=== PATIENT | male | born 1945 | race Caucasian/White ===

== ENCOUNTER 2016-12-29 13:30 | Observation (INO) | payer OTHER ==
[2016-12-29] VITALS (7 sets, daily range): BP systolic 103–129; BP diastolic 69–77; PULSE 72–109; RESP 16–20; TEMP 98–98.2; O2SAT 95–97
[~2016-12-29] VITALS: Ht 175.3 cm; Wt 84.3 kg
[2016-12-29] MEDS ORDERED: SODIUM CHLORIDE 0.9% FLUSH 5 ML FLUSH IVF PRN ×2 (14:00→15:45)
[2016-12-29] MEDS ORDERED: methylPREDNISolone SOD SUCC 125 MG/2 ML VIAL IVP ONE (14:00)
--- NOTE | 2016-12-29 14:00 | PD ---
HPI Chief Complaint: Respiratory Symptoms Time Seen by Provider: 13:46 Travel History International Travel<30 days: No Contact w/Intl Traveler<30days: No Traveled to known affect area: No History of Present Illness HPI This 71-year-old male is complaining of shortness of breath and cough. His symptoms started last night and have been progressive. He has a history of emphysema. He emphysema secondary to smoking. He stopped smoking 10-1/2 years ago. He did smoke for 48 years. He has no history of heart disease except for a right bundle-branch block. He is on Advair SPIRIVA and Singulair. He has had pneumonia in the past. He is not aware of fever. He has recently had some problems with cognition and is being evaluated for possible dementia. He had an MRI last Thursday which was normal. The patient has been on home oxygen in the past which he used primarily at night. He moved here from [place] recently and has not had his oxygen at home since he moved. PFS Past Medical History Cardiovascular Problems: Yes (RBBB) Respiratory: Yes (COPD) Social History Tobacco Use: No Allergies-Medications (Allergen,Severity, Reaction): Coded Allergies: Demerol (Verified Allergy, Severe, Anaphylaxis, 12/29/16) Valium (Verified Allergy, Severe, Anaphylaxis, 12/29/16) Keflex (Verified Allergy, Unknown, 12/29/16) Reported Meds & Prescriptions Reported Meds & Active Scripts Active Oxygen tank (Oxygen) 1 Ea Tank 2 Liter JUAN.CANULA CONTINUOUS Oxygen Concentrator Portable Gaseous 2 L/min via Nasal Cannula Continuous For 99 months Reported Metformin (Metformin HCl) 500 Mg Tab 500 Mg PO HS With meals Albuterol Neb (Albuterol Sulfate) 2.5 Mg/3 Ml Neb 2.5 Mg NEB Q4HR NEB PRN While awake Zinc (Zinc Gluconate) 30 Mg Tab 1 Tab PO DAILY Magnesium 250 Mg Tab 1 Tab PO DAILY Stool Softener (Docusate Sodium) 100 Mg Cap 3 Tab PO DAILY Citrucel (Methylcellulose) 500 Mg Tab 2 Tab PO DAILY Gabapentin 300 Mg Cap 300 Mg PO HS Claritin Reditabs (Loratadine) 10 Mg Tab 10 Mg PO DAILY Fish Oil ([place]-3 Fatty Acids) 1,000 Mg Cap 3,000 Mg PO DAILY Metaxalone 800 Mg Tab 800 Mg PO BID Combivent Respimat Inh (Ipratropium-Albuterol Inh) 20-100 Fpc/Act Aero 1 Puff INH QID PRN Vitamin C (Ascorbic Acid) 1,000 Mg Tab 2,000 Mg PO DAILY Multivitamin Men (Multiple Vitamins W/ Minerals) 1 Tab Tab 1 Tab PO DAILY Singulair (Montelukast Sodium) 10 Mg Tab 10 Mg PO HS Metformin (Metformin HCl) 1,000 Mg Tab 1,000 Mg PO IN AM With meals Naproxen 500 Mg Tab 500 Mg PO BID Trulicity Inj (Dulaglutide Inj) 0.75 Mg/0.5 Ml Pen 0.75 Mg SQ Q7D Simvastatin 40 Mg Tab 40 Mg PO HS Potassium 75 Mg Tab 20 Meq PO BID Lasix (Furosemide) 40 Mg Tab 20 Mg PO BID Iron (Ferrous Sulfate) 325 Mg Tab 65 Mg PO DAILY Take Terazosin (Terazosin HCl) 2 Mg Cap 5 Mg PO HS Ranitidine (Ranitidine HCl) 300 Mg Cap 300 Mg PO HS Propranolol (Propranolol HCl) 10 Mg Tab 20 Mg PO Q12HR Primidone 250 Mg Tab 250 Mg PO TID Levothyroxine (Levothyroxine Sodium) 25 Mcg Tab 88 Mcg PO DAILY Spiriva Handihaler (Tiotropium Inh) 18 Mcg Cap 18 Mcg INH DAILY 1 capsule = 18 mcg Advair Diskus Inh (Fluticasone-Salmeterol Inh) 500-50 Mcg/Blist Aer 1 Puff INH BID Rinse mouth after use. Review of Systems General / Constitutional: No: Fever, Chills Eyes: No: Diploplia, Blurred Vision HENT: No: Headaches Cardiovascular: No: Chest Pain or Discomfort, Edema Respiratory: Positive: Cough, Shortness of Breath, Wheezing Gastrointestinal: No: Vomiting, Diarrhea Genitourinary: No: Urgency, Frequency Musculoskeletal: No: Myalgias, Arthralgias Skin: No Rash Neurologic: Positive: Weakness Hematologic/Lymphatic: No: Easy Bruising Physical Exam Narrative GENERAL: Well-developed male SKIN: Warm and dry. HEAD: Atraumatic. Normocephalic. EYES: Pupils equal and round. No scleral icterus. No injection or drainage. ENT: No nasal bleeding or discharge. Mucous membranes pink and moist. NECK: Trachea midline. No JVD. CARDIOVASCULAR: Regular rate and rhythm. No murmur appreciated. RESPIRATORY: No accessory muscle use. There are bilateral expiratory wheezes. Breath sounds equal bilaterally. GASTROINTESTINAL: Abdomen soft, non-tender, nondistended. Hepatic and splenic margins not palpable. MUSCULOSKELETAL: No obvious deformities. No clubbing. No cyanosis. No edema. NEUROLOGICAL: Awake and alert. No obvious cranial nerve deficits. Motor grossly within normal limits. Normal speech. PSYCHIATRIC: Labile mood Data Data Last Documented VS Vital Signs Date Time Temp Pulse Resp B/P Pulse Ox O2 Delivery O2 Flow Rate FiO2 12/29/16 14:58 72 18 103/77 97 Room Air 12/29/16 14:25 2 12/29/16 13:34 98.2 Orders Complete Blood Count With Diff (12/29/16 13:56) Comprehensive Metabolic Panel (12/29/16 13:56) B-Type Natriuretic Peptide (12/29/16 13:56) Troponin I (12/29/16 13:56) Influenzae A/B Antigen (12/29/16 13:56) Blood Culture (12/29/16 13:56) Iv Access Insert/Monitor (12/29/16 13:56) Electrocardiogram (12/29/16 13:56) Ecg Monitoring (12/29/16 13:56) Oximetry (12/29/16 13:56) Oxygen Administration (12/29/16 13:56) Chest, Single Ap (12/29/16 13:56) Sodium Chloride 0.9% Flush (Ns Flush) (12/29/16 14:00) Methylprednisolone So Succ Inj (Solumedr (12/29/16 14:00) Albuterol-Ipratropium Neb (Duoneb Neb) (12/29/16 14:00) Admit Order (Ed Use Only) (12/29/16 15:28) Labs Laboratory Tests Test 12/29/16 14:25 White Blood Count 10.3 TH/MM3 Red Blood Count 4.06 MIL/MM3 Hemoglobin 12.6 GM/DL Hematocrit 36.8 % Mean Corpuscular Volume 90.5 FL Mean Corpuscular Hemoglobin 31.0 PG Mean Corpuscular Hemoglobin 34.2 % Concent Red Cell Distribution Width 12.1 % Platelet Count 213 TH/MM3 Mean Platelet Volume 7.0 FL Neutrophils (%) (Auto) 74.6 % Lymphocytes (%) (Auto) 14.3 % Monocytes (%) (Auto) 6.9 % Eosinophils (%) (Auto) 3.9 % Basophils (%) (Auto) 0.3 % Neutrophils # (Auto) 7.7 TH/MM3 Lymphocytes # (Auto) 1.5 TH/MM3 Monocytes # (Auto) 0.7 TH/MM3 Eosinophils # (Auto) 0.4 TH/MM3 Basophils # (Auto) 0.0 TH/MM3 CBC Comment DIFF FINAL Differential Comment Sodium Level 141 MEQ/L Potassium Level 3.9 MEQ/L Chloride Level 103 MEQ/L Carbon Dioxide Level 27.8 MEQ/L Anion Gap 10 MEQ/L Blood Urea Nitrogen 34 MG/DL Creatinine 0.94 MG/DL Estimat Glomerular Filtration 79 ML/MIN Rate Random Glucose 113 MG/DL Calcium Level 8.6 MG/DL Total Bilirubin 0.4 MG/DL Aspartate Amino Transf 18 U/L (AST/SGOT) Alanine Aminotransferase 23 U/L (ALT/SGPT) Alkaline Phosphatase 139 U/L Troponin I LESS THAN 0.02 NG/ML B-Type Natriuretic Peptide 7 PG/ML Total Protein 7.4 GM/DL Albumin 3.9 GM/DL [facility] Medical Decision Making Medical Screen Exam Complete: Yes Emergency Medical Condition: Yes Medical Record Reviewed: Yes Differential Diagnosis Differential includes COPD exacerbation, pneumonia, CHF Narrative Course X-rays been read as negative. Patient has been given Solu-Medrol and repeated nebulizer treatments. He has been observed on oximetry. His saturations dipped into the 88-89 at times. His said he had an episode where he dipped to 88 and became hard to arouse. This resolved very quickly. 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 His saturations after the treatments have varied between 88 and 95. Repeat examination shows some persistent wheezing Diagnosis Primary Impression: COPD exacerbation Scripts Oxygen tank 1 Ea Tank #2 Liter Juan.canula Continuous Oxygen Concentrator Portable Gaseous 2 L/min via Nasal Cannula Continuous For 99 months Prov:Tunde Montero 12/29/16 Mario Hook MD Dec 29, 2016 14:00
[2016-12-29] MEDS ORDERED: SPIRCAP INH (14:11)
[2016-12-29] MEDS ORDERED: TERA2CAP3 PO (14:11)
[2016-12-29] MEDS ORDERED: PRIL10PO (14:11)
[2016-12-29] MEDS ORDERED: POTA75TA PO (14:11)
[2016-12-29] MEDS ORDERED: PRIM250T5 PO (14:11)
[2016-12-29] MEDS ORDERED: ADVA500A INH (14:11)
[2016-12-29] MEDS ORDERED: LEVO25TA4 PO (14:11)
[2016-12-29] MEDS ORDERED: FERR1TAB36 PO (14:11)
[2016-12-29] MEDS ORDERED: DULA10IN SQ (14:11)
[2016-12-29] MEDS ORDERED: RANI300C PO (14:11)
[2016-12-29] MEDS ORDERED: FURO1TAB60 PO (14:11)
[2016-12-29] MEDS ORDERED: SIMV40TA PO (14:11)
[2016-12-29] MEDS ORDERED: PROP10TA6 PO (14:11)
[2016-12-29] MEDS: RESP: ALBUTEROL 2.5 MG/IPRATROPIUM 0.5 MG NEB (SCH) INH ×2 (14:21→21:17)
[2016-12-29 14:36] LABS: AUTOMATED NEUTROPHIL # 7.7 TH/MM3 (1.8-7.7); BASOPHIL % 0.3 % (0.0-2.0); EOSINOPHIL # 0.4 TH/MM3 (0-0.4); EOSINOPHIL % 3.9 % (0.0-4.0); HEMATOCRIT 36.8 % (39.0-51.0); HEMO FLAGS DIFF FINAL; LYMPH % 14.3 % (9.0-44.0); LYMPHOCYTE # 1.5 TH/MM3 (1.0-4.8); MEAN CELL VOLUME 90.5 FL (80.0-100.0); MEAN CORPUSCULAR HGB CONC 34.2 % (32.0-36.0); MONO % 6.9 % (0.0-8.0); NEUT % 74.6 % (16.0-70.0); PLATELET COUNT 213 TH/MM3 (150-450); RED BLOOD COUNT 4.06 MIL/MM3 (4.50-5.90); RED CELL DISTRIBUTION WIDTH 12.1 % (11.6-17.2); WHITE BLOOD COUNT 10.3 TH/MM3 (4.0-11.0)
[2016-12-29 14:43] LABS: CHLORIDE 103 MEQ/L (98-107); POTASSIUM 3.9 MEQ/L (3.5-5.1); SODIUM (NA) 141 MEQ/L (136-145)
[2016-12-29 14:47] LABS: ANION GAP 10 MEQ/L (5-15); BICARBONATE 27.8 MEQ/L (21.0-32.0); BLOOD UREA NITROGEN 34 MG/DL (7-18)
[2016-12-29 14:50] LABS: ALT (GPT) 23 U/L (12-78); AST (GOT) 18 U/L (15-37); GLOMERULAR FILTRATION RATE 79 ML/MIN (>89)
[2016-12-29 14:52] LABS: TOTAL BILIRUBIN ADULT 0.4 MG/DL (0.2-1.0)
[2016-12-29 14:53] LABS: ALKALINE PHOSPHATASE 139 U/L (45-117)
--- NOTE | 2016-12-29 14:53 | RADHPO ---
EXAM DATE/TIME: 12/29/2016 14:09 [facility] COMPARISON: No previous studies available for comparison. INDICATIONS : Short of breath MEDICAL HISTORY : Chronic obstructive pulmonary disease. Hypercholesterolemia. SURGICAL HISTORY : None. ENCOUNTER: Initial ACUITY: 1 day PAIN SCORE: 2/10 LOCATION: Bilateral chest FINDINGS: A single view of the chest demonstrates the lungs to be symmetrically aerated without evidence of mas s, infiltrate or effusion. The cardiomediastinal contours are unremarkable. Osseous structures are intact. CONCLUSION: No acute disease. Byron Persaud MD FACR on December 29, 2016 at 14:49 Board Certified Radiologist. This report was verified electronically.
[2016-12-29] MEDS ORDERED: DOCUSATE SODIUM 100 MG CAP PO PRN (15:45)
[2016-12-29] MEDS ORDERED: ONDANSETRON HCL 4 MG/2 ML VIAL IV PRN (15:45)
[2016-12-29] MEDS ORDERED: MAGNESIUM HYDROXIDE SUSP 30 ML CUP PO PRN (15:45)
[2016-12-29] MEDS ORDERED: ACETAMINOPHEN 325 MG TAB PO PRN (15:45)
[2016-12-29] MEDS ORDERED: CALCIUM CARBONATE 500 MG CHEWABLE TAB CHEW PRN (15:45)
[2016-12-29] MEDS ORDERED: OXYGENTANK NAS.CANULA (15:49)
[2016-12-29] MEDS ORDERED: GLUCAGON 1 MG/ML VIAL OTHER PRN (16:00)
[2016-12-29] MEDS ORDERED: DEXTROSE 50% IN WATER 50 ML VIAL(D50) IV PUSH PRN (16:00)
[2016-12-29] MEDS: INSULIN ASPART SUPPLEMENTAL SCALE SQ SCH ×2 (16:00→22:09)
[2016-12-29] MEDS ORDERED: RESP: ALBUTEROL 2.5 MG/IPRATROPIUM 0.5 MG NEB (PRN) NEB (16:15)
[2016-12-29] MEDS ORDERED: AZITHROMYCIN 250 MG TAB PO SCH (17:00)
[2016-12-29] MEDS: PRIMIDONE 250 MG TAB PO SCH (17:27)
[2016-12-29] MEDS ORDERED: FUROSEMIDE 40 MG TAB PO SCH (18:00)
--- NOTE | 2016-12-29 18:29 | HHI.HP ---
[facility] Jv Oh MD Admission Diagnosis COPD EXACERBATION Diagnoses: Travel History International Travel<30 Days: No Contact w/Intl Traveler <30 Da: No Traveled to Known Affected Are: No History of Present Illness This is a pleasant 71-year-old male with past medical history of COPD , type 2 diabetes, supposed to be on oxygen at night who presented with a several day history of cough productive of brown sputum, shortness of breath and wheeze which she states is typical for COPD exacerbations. The patient recently moved here from [place] and does not have oxygen at home although he used to be on it at night. The patient also states that he is occasionally getting burning epigastric pain which she attributes to reflux. He does have a history of GERD. The patient denies radiation to his arm or jaw. Patient denies fever or chills. Emergency department he received Solu-Medrol and breathing treatments but was still wheezing therefore the ER physician requested observation. Past Family Social History Past Medical History COPD Hypertension Type 2 diabetes Hypothyroidism Hyperlipidemia GERD Osteoarthritis Essential tremor History of right upper lobe wedge resection for aspergillosis in 2007 Right bundle branch block Allergies: Coded Allergies: Demerol (Verified Allergy, Severe, Anaphylaxis, 12/29/16) Valium (Verified Allergy, Severe, Anaphylaxis, 12/29/16) Keflex (Verified Allergy, Unknown, 12/29/16) Family History Reviewed and noncontributory Social History 48 pack year history quit about 10-12 years ago. Physical Exam Vital Signs Vital Signs Date Time Temp Pulse Resp B/P Pulse Ox O2 Delivery O2 Flow Rate FiO2 12/29/16 17:04 84 18 124/69 97 Room Air 12/29/16 16:15 95 21 12/29/16 14:58 72 18 103/77 97 Room Air 12/29/16 14:25 98 Nasal Cannula 2 12/29/16 14:25 97 Room Air 12/29/16 13:54 20 96 Room Air 12/29/16 13:34 98.2 97 16 129/76 96 Physical Exam GENERAL: Well-nourished, well-developed patient. SKIN: Warm and dry. HEAD: Normocephalic. EYES: No scleral icterus. No injection or drainage. NECK: Supple, trachea midline. No JVD or lymphadenopathy. CARDIOVASCULAR: Regular rate and rhythm without murmurs, gallops, or rubs. RESPIRATORY: Breath sounds equal bilaterally. He does have expiratory wheezing bilaterally but no accessory muscle use on room air. GASTROINTESTINAL: Abdomen soft, non-tender, nondistended. EXTREMITIES: No cyanosis, or edema. NEUROLOGICAL: Awake, alert, and oriented x 3. Non-focal. Laboratory Laboratory Tests Test 12/29/16 14:25 White Blood Count 10.3 Red Blood Count 4.06 Hemoglobin 12.6 Hematocrit 36.8 Mean Corpuscular Volume 90.5 Mean Corpuscular Hemoglobin 31.0 Mean Corpuscular Hemoglobin 34.2 Concent Red Cell Distribution Width 12.1 Platelet Count 213 Mean Platelet Volume 7.0 Neutrophils (%) (Auto) 74.6 Lymphocytes (%) (Auto) 14.3 Monocytes (%) (Auto) 6.9 Eosinophils (%) (Auto) 3.9 Basophils (%) (Auto) 0.3 Neutrophils # (Auto) 7.7 Lymphocytes # (Auto) 1.5 Monocytes # (Auto) 0.7 Eosinophils # (Auto) 0.4 Basophils # (Auto) 0.0 CBC Comment DIFF FINAL Differential Comment Sodium Level 141 Potassium Level 3.9 Chloride Level 103 Carbon Dioxide Level 27.8 Anion Gap 10 Blood Urea Nitrogen 34 Creatinine 0.94 Estimat Glomerular Filtration 79 Rate Random Glucose 113 Calcium Level 8.6 Total Bilirubin 0.4 Aspartate Amino Transf 18 (AST/SGOT) Alanine Aminotransferase 23 (ALT/SGPT) Alkaline Phosphatase 139 Troponin I LESS THAN 0.02 B-Type Natriuretic Peptide 7 Total Protein 7.4 Albumin 3.9 Date/Time Procedure Status Source Growth 12/29/16 14:44 Aerobic Blood Culture Received Blood Peripheral Pending 12/29/16 14:44 Anaerobic Blood Culture Received Blood Peripheral Pending 12/29/16 14:40 Influenza Types A,B Antigen ([place]) - Final Complete Nasal Aspirate NEGATIVE FOR FLU A AND B ANTIGEN.... Result Diagram: 12/29/16 1425 12/29/16 1425 Imaging Last Impressions Chest X-Ray 12/29/16 1356 Signed Impressions: Service Date/Time: Thursday, December 29, 2016 14:09 - CONCLUSION: No acute disease. Byron Persaud MD FACR Assessment and Plan Assessment and Plan COPD exacerbation with mild hypoxia. Will observe him for IV Solu-Medrol, DuoNeb's, and will arrange him home oxygen if he requires it. Resume the rest of his home medications for his conditions below. I will also obtain serial cardiac enzymes as he is having burning epigastric pain. EKG shows right bundle branch block which is chronic. Chest x-ray shows no acute findings. Hypertension Type 2 diabetes Hypothyroidism Hyperlipidemia GERD Osteoarthritis Essential tremor History of right upper lobe wedge resection for aspergillosis in 2007 Right bundle branch block Hilary Almeida MD Dec 29, 2016 18:29
[2016-12-29] MEDS ORDERED: diphenhydrAMINE HCL 25 MG CAP PO PRN (18:30)
[2016-12-29] MEDS: AZITHROMYCIN 250 MG TAB PO SCH (19:43)
[2016-12-29] MEDS: methylPREDNISolone SOD SUCC 40 MG/1 ML VIAL IV SCH (19:43)
[2016-12-29] MEDS ORDERED: CITR500T PO (20:36)
[2016-12-29] MEDS ORDERED: GABA300C5 PO (20:36)
[2016-12-29] MEDS ORDERED: META1TAB19 PO (20:36)
[2016-12-29] MEDS ORDERED: ALBU0.08 NEB (20:36)
[2016-12-29] MEDS ORDERED: FISH1000 PO (20:36)
[2016-12-29] MEDS ORDERED: [UNRECOGNIZED DRUG - CODE] PO (20:36)
[2016-12-29] MEDS ORDERED: ZINC30TA2 PO (20:36)
[2016-12-29] MEDS ORDERED: VITA10007 PO (20:36)
[2016-12-29] MEDS ORDERED: NAPR500T PO (20:36)
[2016-12-29] MEDS ORDERED: MAGN250T3 PO (20:36)
[2016-12-29] MEDS ORDERED: IPRAAER INH (20:36)
[2016-12-29] MEDS ORDERED: MULT1TAB85 PO (20:36)
[2016-12-29] MEDS ORDERED: MONT10TA2 PO (20:36)
[2016-12-29] MEDS ORDERED: STOO100C PO (20:36)
[2016-12-29] MEDS ORDERED: METF1000 PO (20:36)
[2016-12-29] MEDS ORDERED: METF500T PO (20:37)
[2016-12-29] MEDS: SODIUM CHLORIDE 0.9% FLUSH 5 ML FLUSH IVF SCH (21:00)
[2016-12-29] MEDS ORDERED: PROPRANOLOL HCL 10 MG TAB PO SCH (21:00)
[2016-12-29] MEDS ORDERED: PRAVASTATIN SOD 80 MG TAB PO SCH (21:00)
[2016-12-29] MEDS ORDERED: TERAZOSIN HCL 1 MG CAP PO SCH (21:00)
--- NOTE | 2016-12-29 21:14 | HHI.PR ---
Addendum to Inpatient Note Addendum Reason: Additional Documentation Additional Information was called by nurse because pt's med rec is incorrect and she did make changes now because brought the list (previously, and pt were just going through med rec with nurse by memory without a list) I have made changes to current med orders with correct dosing however, did not add any new home meds that were not ordered by Esequiel Ward MD Dec 29, 2016 21:14
[2016-12-29] MEDS: FAMOTIDINE 20 MG TAB PO SCH (22:09)
[2016-12-29] MEDS: POTASSIUM CHLORIDE 20 MEQ CONTROLLED RELEASE TAB PO SCH (22:10)
[2016-12-29] MEDS: BUDESONIDE-FORMOTEROL 160/4.5 MCG INHALER INH SCH (22:10)
[2016-12-30] VITALS (9 sets, daily range): BP systolic 95–142; BP diastolic 53–85; PULSE 78–95; RESP 18–22; TEMP 97.6–98.4; O2SAT 94–98
[2016-12-30] MEDS: methylPREDNISolone SOD SUCC 40 MG/1 ML VIAL IV SCH ×3 (02:20→13:00)
[2016-12-30] MEDS ORDERED: LEVOTHYROXINE SODIUM 88 MCG TAB PO SCH (06:00)
[2016-12-30] MEDS ORDERED: LEVOTHYROXINE SODIUM 25 MCG TAB PO SCH ×2 (06:00)
[2016-12-30] MEDS: INSULIN ASPART SUPPLEMENTAL SCALE SQ SCH ×3 (06:32→13:00)
[2016-12-30] MEDS: RESP: ALBUTEROL 2.5 MG/IPRATROPIUM 0.5 MG NEB (SCH) INH ×2 (07:17→13:07)
[2016-12-30] MEDS: SODIUM CHLORIDE 0.9% FLUSH 5 ML FLUSH IVF SCH (08:12)
[2016-12-30] MEDS: BUDESONIDE-FORMOTEROL 160/4.5 MCG INHALER INH SCH (08:14)
[2016-12-30] MEDS ORDERED: PROPRANOLOL HCL 10 MG TAB PO SCH (09:00)
[2016-12-30] MEDS: AZITHROMYCIN 250 MG TAB PO SCH (09:15)
[2016-12-30] MEDS: FAMOTIDINE 20 MG TAB PO SCH (09:15)
[2016-12-30] MEDS: POTASSIUM CHLORIDE 20 MEQ CONTROLLED RELEASE TAB PO SCH (09:16)
[2016-12-30] MEDS: FUROSEMIDE 40 MG TAB PO SCH ×2 (09:16→17:06)
[2016-12-30] MEDS: PRIMIDONE 250 MG TAB PO SCH ×3 (09:57→17:06)
[2016-12-30] MEDS ORDERED: PROPRANOLOL HCL 20 MG TAB PO SCH (10:04)
--- NOTE | 2016-12-30 13:06 | HHI.PR ---
Subjective Remarks Patient states he feels 75% better. He states he still has a forced wheeze but that this is been present since his treatment for aspergillosis. Patient and tell me that he has been worked up for dementia in the past and is currently seeing Dr. Ng. Apparently he has early onset dementia but does not take medication for it as he does not find it helpful. The patient does not remember me from yesterday. Objective Vitals Vital Signs Date Time Temp Pulse Resp B/P Pulse Ox O2 Delivery O2 Flow Rate FiO2 12/30/16 08:30 97.7 95 20 133/82 94 12/30/16 07:19 95 21 12/30/16 07:12 98 Room Air 12/30/16 07:12 97.8 84 18 111/70 98 Room Air 12/30/16 07:12 97.8 84 18 111/70 98 Room Air 12/30/16 06:35 98.0 90 18 124/74 97 CPAP 12/30/16 05:01 78 18 94 CPAP 12/30/16 05:01 78 18 95/53 94 CPAP 12/30/16 02:23 98.0 86 18 98/58 98 Room Air 12/30/16 02:23 86 18 98 CPAP 12/29/16 23:02 109 20 96 Room Air 12/29/16 23:02 98.0 109 20 118/70 96 Room Air 12/29/16 21:15 97 Nasal Cannula 12/29/16 19:51 81 20 96 Room Air 12/29/16 17:04 84 18 124/69 97 Room Air 12/29/16 16:15 95 21 12/29/16 14:58 72 18 103/77 97 Room Air 12/29/16 14:25 98 Nasal Cannula 12/29/16 14:25 97 Room Air 12/29/16 13:54 20 96 Room Air 12/29/16 13:34 98.2 97 16 129/76 96 I/O 12/29/16 12/29/16 12/29/16 12/30/16 12/30/16 12/30/16 07:00 15:00 23:00 07:00 15:00 23:00 Intake Total 500 ml 240 ml 100 ml Output Total 900 ml 600 ml Balance -400 ml -360 ml 100 ml Intake Oral 500 ml 240 ml 100 ml Output Urine Total 900 ml 600 ml # Voids 4 Result Diagram: 12/29/16 1425 12/29/16 1425 Objective Remarks GENERAL: Well-nourished, well-developed patient. SKIN: Warm and dry. HEAD: Normocephalic. EYES: No scleral icterus. No injection or drainage. NECK: Supple, trachea midline. No JVD or lymphadenopathy. CARDIOVASCULAR: Regular rate and rhythm without murmurs, gallops, or rubs. RESPIRATORY: Breath sounds equal bilaterally. No accessory muscle use. He has forced end expiratory wheeze. GASTROINTESTINAL: Abdomen soft, non-tender, nondistended. EXTREMITIES: No cyanosis, or edema. NEUROLOGICAL: Awake, alert, and oriented x 3. Non-focal. A/P Assessment and Plan COPD exacerbation -greatly improved. Stable on room air and he passes oxygen walk test. The patient feels 75% improved and will like to go home. We will prescribe him prednisone duo nebs and a nebulizer machine. The patient is already on Spiriva and has rescue inhalers. He is to follow-up with his primary care physician next week. For pulmonology referral. Type 2 diabetescontinue home meds. Hypothyroidism Hyperlipidemia GERD - patient did have some burning epigastric pain which is resolved. Serial cardiac enzymes were negative. Osteoarthritis Essential tremorcontinue home meds. History of right upper lobe wedge resection for aspergillosis in 2007 Right bundle branch block-chronic. Hilary Almeida MD Dec 30, 2016 13:06
[2016-12-30] MEDS ORDERED: NEBULIZER1 MI1 (13:08)
[2016-12-30] MEDS ORDERED: IPRASOL INH (13:08)
[2016-12-30] MEDS ORDERED: AZIT500T2 PO (13:08)
[2016-12-30] MEDS ORDERED: PRED20 PO (13:09)
--- NOTE | 2016-12-30 16:36 | EKG ---
Date Performed: 12/29/2016 Time Performed: 14:04:28 PTAGE: 71 years EKG: Sinus rhythm Right bundle branch block Low QRS voltages in precordial leads Abnormal ECG NO PREVIOUS TRACING DOCTOR: Karson Montes Interpretating Date/Time 12/30/2016 16:33:52
[2016-12-30] MEDS ORDERED: PRAVASTATIN SOD 40 MG TAB PO SCH (21:00)
[2016-12-30] MEDS ORDERED: TERAZOSIN HCL 1 MG CAP PO SCH (21:00)
[2016-12-31] MEDS ORDERED: LANS30CA PO (16:27)
[2016-12-31] MEDS ORDERED: CPAP (16:27)
[2016-12-31] MEDS ORDERED: BUSP5TAB PO (16:27)
[2016-12-31] MEDS ORDERED: PRED20 PO (16:27)
[2016-12-31] MEDS ORDERED: POTA-163 PO (16:27)
[2016-12-31] MEDS ORDERED: TRIA1SPR5 (16:27)
== END 2016-12-30 17:49 | disposition home or self-care (01) ==
LOC: PHED 13:30 → PHEDA 15:29 → PHEDH 19:29 → PH3A 12-30 08:27
PROVIDERS: ADMIT Hospitalist; ATTEND Hospitalist
DX: J44.1 Chronic obstructive pulmonary disease with (acute) exacerbation (principal); R09.02 Hypoxemia; I10 Essential (primary) hypertension; I45.10 Unspecified right bundle-branch block; E11.9 Type 2 diabetes mellitus without complications; E03.9 Hypothyroidism, unspecified; E78.5 Hyperlipidemia, unspecified; K21.9 Gastro-esophageal reflux disease without esophagitis; M19.90 Unspecified osteoarthritis, unspecified site; R06.2 Wheezing; G25.0 Essential tremor; Z87.891 Personal history of nicotine dependence; Z99.81 Dependence on supplemental oxygen
CPT/HCPCS: 71010; 80053; 82948; 83880; 84484; 85025; 87040; 87804; 93005; 94150; 94620; 94640; 94664; 96374; G0378; J1815; J2920; J2930

== ENCOUNTER 2016-12-31 15:49 | Inpatient (IN) | payer OTHER, MEDICARE ==
[2016-12-31] VITALS (7 sets, daily range): BP systolic 94–117; BP diastolic 65–75; PULSE 70–79; RESP 16–18; TEMP 98–98.3; O2SAT 95–99
[~2016-12-31] VITALS: Ht 175.3 cm; Wt 84.9 kg
[~2016-12-31 15:49] MED LIST: ADVA500A INH; ALBU0.08 NEB; AZIT500T2 PO; CITR500T PO; DULA10IN SQ; FERR1TAB36 PO; FISH1000 PO; FURO1TAB60 PO; GABA300C5 PO; IPRAAER INH; IPRASOL INH; LEVO25TA4 PO; MAGN250T3 PO; META1TAB19 PO; METF1000 PO; METF500T PO; MONT10TA2 PO; MULT1TAB85 PO; NAPR500T PO; NEBULIZER1 MI1; OXYGENTANK NAS.CANULA; POTA75TA PO; PRED20 PO; PRIM250T5 PO; PROP10TA6 PO; RANI300C PO; SIMV40TA PO; SPIRCAP INH; STOO100C PO; TERA2CAP3 PO; VITA10007 PO; ZINC30TA2 PO; [UNRECOGNIZED DRUG - CODE] PO
[2016-12-31] MEDS ORDERED: POTA-163 PO (16:27)
[2016-12-31] MEDS ORDERED: BUSP5TAB PO (16:27)
[2016-12-31] MEDS ORDERED: LANS30CA PO (16:27)
[2016-12-31] MEDS ORDERED: TRIA1SPR5 (16:27)
[2016-12-31] MEDS ORDERED: PRED20 PO (16:27)
[2016-12-31] MEDS ORDERED: CPAP (16:27)
[2016-12-31] MEDS ORDERED: SODIUM CHLORIDE 0.9% FLUSH 5 ML FLUSH IVF PRN (16:30)
[2016-12-31] MEDS ORDERED: methylPREDNISolone SOD SUCC 125 MG/2 ML VIAL IVP ONE (16:30)
--- NOTE | 2016-12-31 16:34 | PD ---
HPI Chief Complaint: Fever Time Seen by Provider: 16:19 Travel History International Travel<30 days: No Contact w/Intl Traveler<30days: No Traveled to known affect area: No History of Present Illness HPI 71yo M with PMH of COPD, DM, hypothyroidism, HLD, GERD returns to the ED with c/ o sob since last night. Pt was just here -12/30/16 for COPD exacerbation and states he did feel better when he got home. However, he had fever yesterday and felt sob last night. +Cough. Pt still does not have oxygen at home because his insurance requires him to go through PMD for referral to manager corporate strategy. Pt also complained of generalized weakness since last night. Denies any vomiting, abdominal pain but has tenderness on abdominal exam and then states it has been there for 1 year. Pt has history of cyst in pancreas. PFSH Past Medical History Anemia: Yes Cardiovascular Problems: Yes (RBBB) High Cholesterol: Yes COPD: Yes Diabetes: Yes Patient Takes Glucophage: Yes Diminished Hearing: No GERD: Yes Respiratory: Yes (COPD) Thyroid Disease: Yes Tetanus Vaccination: Unknown Past Surgical History Abdominal Surgery: Yes (lap ambrocio 2000) Cholecystectomy: Yes Eye Surgery: Yes (CATARACT BILATERAL, bilateral blephoplasty 2015) Tonsillectomy: Yes Other Surgery: Yes (Bilat ulnar nerve/ r upper lobe thoracotomy) Social History Alcohol Use: Yes Tobacco Use: No Substance Use: No Allergies-Medications (Allergen,Severity, Reaction): Coded Allergies: Demerol (Verified Allergy, Severe, Anaphylaxis, 12/31/16) Valium (Verified Allergy, Severe, Anaphylaxis, 12/31/16) Tuberculin PPD (Verified Allergy, Intermediate, INFLAMED AREA, LOCKS ARM UP., 12/31/16) Keflex (Verified Allergy, Unknown, 12/31/16) Reported Meds & Prescriptions Reported Meds & Active Scripts Active Prednisone 20 Mg Tab 20 Mg PO DIRECTED 20 MG twice a day x 5 days, then 20 MG daily x 5 days, then 10 MG daily x 5 days Nebulizer 1 Mis Mis 1 Ea .ROUTE DIRECTED Azithromycin 500 Mg Tab 500 Mg PO DAILY Duoneb (Ipratropium-Albuterol Neb) 0.5-2.5 Mg/3 Ml Neb 1 Nebule INH Q4HR NEB Oxygen tank (Oxygen) 1 Ea Tank 2 Liter JUAN.CANULA CONTINUOUS Oxygen Concentrator Portable Gaseous 2 L/min via Nasal Cannula Continuous For 99 months Reported [Cpap] Nasacort Allergy 24Hr (Triamcinolone Acetonide (Nasal) 55 Mcg/Act Spr DAILY Lansoprazole 30 Mg Capdr 30 Mg PO DAILY Potassium Chloride ER (Potassium Chloride) 20 Meq Tab 20 Meq PO DAILY Prednisone 20 Mg Tab 40 Mg PO DIRECTED Buspirone (Buspirone HCl) 5 Mg Tab 5 Mg PO PRN Metformin (Metformin HCl) 500 Mg Tab 500 Mg PO HS With meals Zinc (Zinc Gluconate) 30 Mg Tab 1 Tab PO DAILY Magnesium 250 Mg Tab 1 Tab PO DAILY Stool Softener (Docusate Sodium) 100 Mg Cap 3 Tab PO DAILY Citrucel (Methylcellulose) 500 Mg Tab 2 Tab PO DAILY Gabapentin 300 Mg Cap 300 Mg PO HS Claritin Reditabs (Loratadine) 10 Mg Tab 10 Mg PO DAILY Fish Oil (Bastian-3 Fatty Acids) 1,000 Mg Cap 3,000 Mg PO DAILY Metaxalone 800 Mg Tab 800 Mg PO BID Combivent Respimat Inh (Ipratropium-Albuterol Inh) 20-100 Halfway/Act Aero 1 Puff INH QID PRN Vitamin C (Ascorbic Acid) 1,000 Mg Tab 2,000 Mg PO DAILY Multivitamin Men (Multiple Vitamins W/ Minerals) 1 Tab Tab 1 Tab PO DAILY Singulair (Montelukast Sodium) 10 Mg Tab 10 Mg PO HS Metformin (Metformin HCl) 1,000 Mg Tab 1,000 Mg PO IN AM With meals Naproxen 500 Mg Tab 500 Mg PO BID Trulicity Inj (Dulaglutide Inj) 0.75 Mg/0.5 Ml Pen 0.75 Mg SQ Q7D Simvastatin 40 Mg Tab 40 Mg PO HS Lasix (Furosemide) 40 Mg Tab 20 Mg PO DAILY Iron (Ferrous Sulfate) 325 Mg Tab 65 Mg PO DAILY Take Terazosin (Terazosin HCl) 2 Mg Cap 5 Mg PO HS Ranitidine (Ranitidine HCl) 300 Mg Cap 300 Mg PO HS Propranolol (Propranolol HCl) 10 Mg Tab 20 Mg PO Q12HR Primidone 250 Mg Tab 250 Mg PO TID Levothyroxine (Levothyroxine Sodium) 25 Mcg Tab 88 Mcg PO DAILY Spiriva Handihaler (Tiotropium Inh) 18 Mcg Cap 18 Mcg INH DAILY 1 capsule = 18 mcg Advair Diskus Inh (Fluticasone-Salmeterol Inh) 500-50 Mcg/Blist Aer 1 Puff INH BID Rinse mouth after use. Review of Systems Except as stated in HPI: all other systems reviewed are Neg Physical Exam Narrative GENERAL: 71yo M not in distress. SKIN: Warm and dry. HEAD: Atraumatic. Normocephalic. EYES: Pupils equal and round. No scleral icterus. No injection or drainage. ENT: No nasal bleeding or discharge. Mucous membranes pink and moist. NECK: Trachea midline. No JVD. CARDIOVASCULAR: Regular rate and rhythm. No murmur appreciated. RESPIRATORY: No accessory muscle use. Clear to auscultation. Breath sounds equal bilaterally. GASTROINTESTINAL: Abdomen soft, +TTP epigastric region. No rebound tenderness or guarding. MUSCULOSKELETAL: No obvious deformities. No clubbing. No cyanosis. No edema. NEUROLOGICAL: Awake and alert. No obvious cranial nerve deficits. Motor grossly within normal limits. Normal speech. PSYCHIATRIC: Appropriate mood and affect; insight and judgment normal. Data Data Last Documented VS Vital Signs Date Time Temp Pulse Resp B/P Pulse Ox O2 Delivery O2 Flow Rate FiO2 12/31/16 16:35 95 Room Air 12/31/16 16:35 16 2 12/31/16 15:50 98.3 74 115/65 Orders Complete Blood Count With Diff (12/31/16 16:30) Basic Metabolic Panel (Bmp) (12/31/16 16:30) B-Type Natriuretic Peptide (12/31/16 16:30) Act Partial Throm Time (Ptt) (12/31/16 16:30) Prothrombin Time / Inr (Pt) (12/31/16 16:30) Troponin I (12/31/16 16:30) Arterial Blood Gas (Abg) (12/31/16 16:30) Blood Culture (12/31/16 16:30) Iv Access Insert/Monitor (12/31/16 16:30) Electrocardiogram (12/31/16 16:30) Ecg Monitoring (12/31/16 16:30) Oximetry (12/31/16 16:30) Oxygen Administration (12/31/16 16:30) Ct Pulmonary Angiogram (12/31/16 16:30) Sodium Chloride 0.9% Flush (Ns Flush) (12/31/16 16:30) Methylprednisolone So Succ Inj (Solumedr (12/31/16 16:30) Albuterol-Ipratropium Neb (Duoneb Neb) (12/31/16 16:30) Lactic Acid Sepsis Protocol (12/31/16 16:34) Ct Abd/Pel W Iv Contrast(Rout) (12/31/16 ) Lipase (12/31/16 16:30) Levofloxacin 750 Mg Premix Inj (Levaquin (12/31/16 18:15) Iohexol 350 Inj (Omnipaque 350 Inj) (12/31/16 18:27) Admit Order (Ed Use Only) (12/31/16 18:27) Labs Laboratory Tests Test 12/31/16 12/31/16 12/31/16 16:30 16:45 16:48 White Blood Count 13.5 TH/MM3 Red Blood Count 3.96 MIL/MM3 Hemoglobin 12.5 GM/DL Hematocrit 36.3 % Mean Corpuscular Volume 91.7 FL Mean Corpuscular Hemoglobin 31.6 PG Mean Corpuscular Hemoglobin 34.5 % Concent Red Cell Distribution Width 12.4 % Platelet Count 207 TH/MM3 Mean Platelet Volume 7.5 FL Neutrophils (%) (Auto) 86.2 % Lymphocytes (%) (Auto) 7.2 % Monocytes (%) (Auto) 4.4 % Eosinophils (%) (Auto) 2.1 % Basophils (%) (Auto) 0.1 % Neutrophils # (Auto) 11.6 TH/MM3 Lymphocytes # (Auto) 1.0 TH/MM3 Monocytes # (Auto) 0.6 TH/MM3 Eosinophils # (Auto) 0.3 TH/MM3 Basophils # (Auto) 0.0 TH/MM3 CBC Comment DIFF FINAL Differential Comment Prothrombin Time 10.0 SEC Prothromb Time International 0.9 RATIO Ratio Activated Partial 27.3 SEC Thromboplast Time Sodium Level 137 MEQ/L Potassium Level 4.3 MEQ/L Chloride Level 101 MEQ/L Carbon Dioxide Level 26.1 MEQ/L Anion Gap 10 MEQ/L Blood Urea Nitrogen 26 MG/DL Creatinine 1.20 MG/DL Estimat Glomerular Filtration 60 ML/MIN Rate Random Glucose 164 MG/DL Calcium Level 9.0 MG/DL Troponin I LESS THAN 0.02 NG/ML B-Type Natriuretic Peptide 12 PG/ML Lipase 295 U/L Lactic Acid Level 1.6 mmol/L Blood Gas Puncture Site RT RADIAL Blood Gas Patient Temperature 98.6 Blood Gas HCO3 25 mmol/L Blood Gas Base Excess 1.9 mmol/L Blood Gas Oxygen Saturation 94 % Arterial Blood pH 7.48 Arterial Blood Partial 34 mmHG Pressure CO2 Arterial Blood Partial 82 mmHG Pressure O2 Arterial Blood Oxygen Content 15.5 Vol % Arterial Blood 1.1 % Carboxyhemoglobin Arterial Blood Methemoglobin 1.1 % Blood Gas Hemoglobin 11.7 G/DL Oxygen Delivery Device ROOM AIR Blood Gas Inspired Oxygen 21 % MDM Medical Decision Making Medical Screen Exam Complete: Yes Emergency Medical Condition: Yes Interpretation(s) EKG: NSR 68bpm. RBBB. Q wave III. Last Impressions CT Angiography 12/31/16 1630 Signed Impressions: Service Date/Time: Saturday, December 31, 2016 17:30 - CONCLUSION: Negative for pulmonary embolization. Patchy areas of coalescing airspace disease in the right lower lobe. Brian Gardiner MD Abdomen/Pelvis CT 12/31/16 0000 Signed Impressions: Service Date/Time: Saturday, December 31, 2016 17:30 - CONCLUSION: Punctate and coarsened calcifications in the head and body the pancreas. 1.1 cm cyst anterior aspect of the body of the pancreas. Surgical absence of gallbladder clips in place. 3 cm infrarenal abdominal aortic aneurysm without leak not extending to the bifurcation. Punctate nonobstructive calyceal stone lower pole of the left kidney. Degenerative findings of the lower lumbar spine. Brian Gardiner MD Laboratory Tests Test 12/31/16 12/31/16 12/31/16 16:30 16:45 16:48 White Blood Count 13.5 TH/MM3 (4.0-11.0) Red Blood Count 3.96 MIL/MM3 (4.50-5.90) Hemoglobin 12.5 GM/DL (13.0-17.0) Hematocrit 36.3 % (39.0-51.0) Mean Corpuscular Volume 91.7 FL (80.0-100.0) Mean Corpuscular Hemoglobin 31.6 PG (27.0-34.0) Mean Corpuscular Hemoglobin 34.5 % Concent (32.0-36.0) Red Cell Distribution Width 12.4 % (11.6-17.2) Platelet Count 207 TH/MM3 (150-450) Mean Platelet Volume 7.5 FL (7.0-11.0) Neutrophils (%) (Auto) 86.2 % (16.0-70.0) Lymphocytes (%) (Auto) 7.2 % (9.0-44.0) Monocytes (%) (Auto) 4.4 % (0.0-8.0) Eosinophils (%) (Auto) 2.1 % (0.0-4.0) Basophils (%) (Auto) 0.1 % (0.0-2.0) Neutrophils # (Auto) 11.6 TH/MM3 (1.8-7.7) Lymphocytes # (Auto) 1.0 TH/MM3 (1.0-4.8) Monocytes # (Auto) 0.6 TH/MM3 (0-0.9) Eosinophils # (Auto) 0.3 TH/MM3 (0-0.4) Basophils # (Auto) 0.0 TH/MM3 (0-0.2) CBC Comment DIFF FINAL Differential Comment Prothrombin Time 10.0 SEC (9.8-11.6) Prothromb Time International 0.9 RATIO Ratio Activated Partial 27.3 SEC Thromboplast Time (24.3-30.1) Sodium Level 137 MEQ/L (136-145) Potassium Level 4.3 MEQ/L (3.5-5.1) Chloride Level 101 MEQ/L (98-107) Carbon Dioxide Level 26.1 MEQ/L (21.0-32.0) Anion Gap 10 MEQ/L (5-15) Blood Urea Nitrogen 26 MG/DL (7-18) Creatinine 1.20 MG/DL (0.60-1.30) Estimat Glomerular Filtration 60 ML/MIN (>89) Rate Random Glucose 164 MG/DL (74-106) Calcium Level 9.0 MG/DL (8.5-10.1) Troponin I LESS THAN 0.02 NG/ML (0.02-0.05) B-Type Natriuretic Peptide 12 PG/ML (0-100) Lipase 295 U/L (73-393) Lactic Acid Level 1.6 mmol/L (0.4-2.0) Blood Gas Puncture Site RT RADIAL Blood Gas Patient Temperature 98.6 Blood Gas HCO3 25 mmol/L (22-26) Blood Gas Base Excess 1.9 mmol/L (-2-2) Blood Gas Oxygen Saturation 94 % (90-100) Arterial Blood pH 7.48 (7.380-7.420) Arterial Blood Partial 34 mmHG (38-42) Pressure CO2 Arterial Blood Partial 82 mmHG Pressure O2 (61-120) Arterial Blood Oxygen Content 15.5 Vol % (12.0-20.0) Arterial Blood 1.1 % (0-4) Carboxyhemoglobin Arterial Blood Methemoglobin 1.1 % (0-2) Blood Gas Hemoglobin 11.7 G/DL (12.0-16.0) Oxygen Delivery Device ROOM AIR Blood Gas Inspired Oxygen 21 % Differential Diagnosis Pneumonia vs. COPD exacerbation vs. PE vs. ACS vs. pancreatitis Narrative Course 71yo M who was just discharge yesterday after a 24 hour observation admission for COPD presents today with worsening sob and fever yesterday of 101F yesterday. Although pt is not wheezing on exam, still gave duonebs and methylprednisolone since pt has COPD and feels sob. Labs reviewed, leukocytosis of 13.5 with increased neutrophil. ABG showed mild respiratory alkalosis with pH of 7.48. pCO2 34. Lactic acid is normal at 1.6. BUN is elevated at 26. Will give NS IVF. CT angio showed no PE but there is an area of patchy airspace disease and consolidation in right lower lobe. Given pt's fever, sob and elevated WBC, will cover with levofloxacin 750mg IV. CT a/p obtained because he had tenderness on exam even though he states pain is chronic. CTa/p showed punctate and coarsened calcifications in head and body of pancreas. 1.1 cm cyst anterior aspect of body of pancreas. Pt has history of this and knows about it. Pt has appointment with GI for outpatient endoscopy. 3cm infrarenal abdominal aortic aneurysm without leak not extending to the bifurcation. Informed pt of this and to follow up as outpatient with PMD. Discussed with Dr. Lin and accepted to her service. Diagnosis Primary Impression: Pneumonia Qualified Code: J18.1 - Pneumonia of right lower lobe due to infectious organism Admitting Information Admitting Physician Requests: Carla Escalera DO Dec 31, 2016 16:34
[2016-12-31] MEDS: RESP: ALBUTEROL 2.5 MG/IPRATROPIUM 0.5 MG NEB (SCH) INH ×2 (16:41→16:42)
[2016-12-31 16:43] LABS: AUTOMATED NEUTROPHIL # 11.6 TH/MM3 (1.8-7.7); BASOPHIL % 0.1 % (0.0-2.0); EOSINOPHIL # 0.3 TH/MM3 (0-0.4); EOSINOPHIL % 2.1 % (0.0-4.0); HEMATOCRIT 36.3 % (39.0-51.0); LYMPH % 7.2 % (9.0-44.0); MEAN CELL VOLUME 91.7 FL (80.0-100.0); MEAN CORPUSCULAR HEMOGLOBIN 31.6 PG (27.0-34.0); MEAN CORPUSCULAR HGB CONC 34.5 % (32.0-36.0); MONO % 4.4 % (0.0-8.0); NEUT % 86.2 % (16.0-70.0); PLATELET COUNT 207 TH/MM3 (150-450); RED BLOOD COUNT 3.96 MIL/MM3 (4.50-5.90); RED CELL DISTRIBUTION WIDTH 12.4 % (11.6-17.2); WHITE BLOOD COUNT 13.5 TH/MM3 (4.0-11.0)
[2016-12-31 16:48] LABS: HEMO FLAGS DIFF FINAL
[2016-12-31 16:50] LABS: CHLORIDE 101 MEQ/L (98-107); POTASSIUM 4.3 MEQ/L (3.5-5.1); SODIUM (NA) 137 MEQ/L (136-145)
[2016-12-31 16:53] LABS: ANION GAP 10 MEQ/L (5-15); BICARBONATE 26.1 MEQ/L (21.0-32.0); BLOOD UREA NITROGEN 26 MG/DL (7-18)
[2016-12-31 16:56] LABS: BLOOD GAS BASE EXCESS 1.9 mmol/L (-2-2); BLOOD GAS CARBOXYHEMOGLOBIN 1.1 % (0-4); BLOOD GAS HCO3 25 mmol/L (22-26); BLOOD GAS METHEMOGLOBIN 1.1 % (0-2); BLOOD GAS O2 HGB SATURATION 94 % (90-100); BLOOD GAS OXYGEN CONTENT 15.5 Vol % (12.0-20.0); BLOOD GAS PCO2 34 mmHG (38-42); BLOOD GAS PO2 82 mmHG (61-120); BLOOD GAS TOTAL HGB 11.7 G/DL (12.0-16.0); CRITICAL VALUE NO; DRAW SITE RT RADIAL; FIO2 21 %; NUMBER OF ARTERIAL PUNCTURES 1; OXYGEN DEVICE ROOM AIR; STAT YES; TEMP CORR TO 98.6; ULNAR PULSE PRESENT
[2016-12-31 16:56] LABS: APTT (PATIENT) 27.3 SEC (24.3-30.1); GLOMERULAR FILTRATION RATE 60 ML/MIN (>89); INTERNATIONAL NORMALIZED RATIO 0.9 RATIO
--- NOTE | 2016-12-31 17:57 | RADHPO ---
EXAM DATE/TIME: 12/31/2016 17:30 [facility] COMPARISON: CHEST SINGLE AP, December 29, 2016, 14:09. INDICATIONS : Shortness of breath last night with cough. IV CONTRAST: 100 cc Omnipaque 350 (iohexol) IV ; Cumulative dose for multiple exams. RADIATION DOSE: 14.79 CTDIvol (mGy) MEDICAL HISTORY : Chronic obstructive pulmonary disease. SURGICAL HISTORY : None. ENCOUNTER: Initial ACUITY: 1 day PAIN SCALE: 0/10 LOCATION: chest TECHNIQUE: Volumetric scanning of the chest was performed using a pulmonary embolism protocol MIP images were re constructed. Using automated exposure control and adjustment of the mA and/or kV according to patien t size, radiation dose was kept as low as reasonably achievable to obtain optimal diagnostic quality images. FINDINGS: PULMONARY ARTERIES: Patchy areas of alveolar air space disease and somewhat rounded consolidation is appreciated in the r ight lower lobe LUNGS: PLEURAE: There is no pleural thickening or pleural effusion. MEDIASTINUM: There is good visualization of the great vessels of the middle mediastinum. No evidence of mediastin al or hilar adenopathy/mass. Calcifications in the left anterior descending and circumflex coronary a rteries. Calcified hilar and mediastinal lymph nodes MUSCULOSKELETAL: Within normal limits for patient age. MISCELLANEOUS: The visualized upper abdominal organs demonstrate no acute abnormality. CONCLUSION: Negative for pulmonary embolization. Patchy areas of coalescing airspace disease in the right lower l obe. Brian Gardiner MD on December 31, 2016 at 17:52 Board Certified Radiologist. This report was verified electronically.
--- NOTE | 2016-12-31 18:03 | RADHPO ---
EXAM DATE/TIME: 12/31/2016 17:30 [facility] COMPARISON: No previous studies available for comparison. INDICATIONS : Diffuse abdominal pain. IV CONTRAST: 100 cc Omnipaque 350 (iohexol) IV ; Cumulative dose for multiple exams. ORAL CONTRAST: No oral contrast ingested. RADIATION DOSE: 18.77 CTDIvol (mGy) MEDICAL HISTORY : Chronic obstructive pulmonary disease. Gastroesophageal reflux disease. SURGICAL HISTORY : Cholecystectomy. ENCOUNTER: Initial ACUITY: 1 day PAIN SCALE: 1/10 LOCATION: abdomen TECHNIQUE: Volumetric scanning of the abdomen and pelvis was performed. Using automated exposure control and adjustment of the mA and/or kV according to patient size, radiation dose was kept as low as reasonably achievable to obtain optimal diagnostic quality images. FINDINGS: LOWER LUNGS: Patchy areas of airspace disease in the right lower lobe as described on CTA of the chest the same day1 LIVER: Homogeneous density without lesion. There is no dilation of the biliary tree. Clips in pl pérez prior cholecystectomy SPLEEN: Normal size without lesion. PANCREAS: Normal size with well maintained peripancreatic fat planes. Punctate coarse calcificati ons in the head and body. 1.1 cm low density cyst in the anterior aspect of the body of the pancreas. . KIDNEYS: Normal in size and shape. There is no mass,or hydronephrosis. Punctate nonobstructing c alyceal stone inferior pole left kidney ADRENAL GLANDS: Within normal limits. VASCULAR: Atherosclerotic vascular disease with a 3 cm infrarenal abdominal aortic aneurysm not e xtending to the bifurcation or distal aspect.. BOWEL/MESENTERY: The stomach, small bowel, and colon demonstrate no acute abnormality. There is no free intraperitoneal air or fluid. ABDOMINAL WALL: Within normal limits. RETROPERITONEUM: There is no lymphadenopathy. BLADDER: No wall thickening or mass. REPRODUCTIVE: Within normal limits. INGUINAL: There is no lymphadenopathy or hernia. MUSCULOSKELETAL: Degenerative disc disease at L5-S1 with a vacuum sign and facet arthritic change s L4-S1. . CONCLUSION: Punctate and coarsened calcifications in the head and body the pancreas. 1.1 cm cys t anterior aspect of the body of the pancreas. Surgical absence of gallbladder clips in place. 3 cm infrarenal abdominal aortic aneurysm without leak not ext ending to the bifurcation. Punctate nonobstructive calyceal stone lower pole of the left kidney. Degenerative findings of the lower lumbar spine. Brian Gardiner MD on December 31, 2016 at 17:56 Board Certified Radiologist. This report was verified electronically.
[2016-12-31] MEDS ORDERED: LEVOFLOXACIN 750 MG PREMIX INJ 150 ML IV ONE (18:15)
[2016-12-31] MEDS ORDERED: IOHEXOL 350 MG/ML 10 ML VIAL (for RAD DIAG) IV ONE (18:27)
[2016-12-31] MEDS ORDERED: SODIUM CHLORIDE 0.9% FLUSH 5 ML FLUSH IV FLUSH PRN (18:30)
[2016-12-31] MEDS: DOXYCYCLINE INJ 100 MG in SODIUM CHLORIDE 0.9% INJ 100 ML IV SCH (20:06)
[2016-12-31] MEDS: RESP: ALBUTEROL 2.5 MG/IPRATROPIUM 0.5 MG NEB (SCH) NEB (20:28)
[2016-12-31] MEDS ORDERED: PRIMIDONE 250 MG TAB PO ONE (20:30)
[2016-12-31] MEDS ORDERED: diphenhydrAMINE HCL 25 MG CAP PO ONE (20:30)
[2016-12-31] MEDS: PROPRANOLOL HCL 20 MG TAB PO SCH (21:26)
[2016-12-31] MEDS: TERAZOSIN HCL 5 MG CAP PO SCH (21:26)
[2016-12-31] MEDS: FAMOTIDINE 20 MG TAB PO SCH (21:26)
[2016-12-31] MEDS: MONTELUKAST SODIUM 10 MG TAB PO SCH (21:27)
[2016-12-31] MEDS: SODIUM CHLORIDE 0.9% FLUSH 5 ML FLUSH IV FLUSH SCH (21:34)
--- NOTE | 2016-12-31 22:43 | EKG ---
Date Performed: 12/31/2016 Time Performed: 17:19:04 PTAGE: 71 years EKG: Probably normal Sinus rhythm Right bundle branch block Low QRS voltages in precordial leads Abnormal ECG PREVIOUS TRACING : 12/29/2016 14.04 Compared to prior tracing no significant change DOCTOR: Camilo Suazo Interpretating Date/Time 12/31/2016 22:42:07
[2017-01-01] VITALS (9 sets, daily range): BP systolic 112–131; BP diastolic 68–80; PULSE 73–94; RESP 16–20; TEMP 97.8–98.3; O2SAT 95–99
[2017-01-01] MEDS: RESP: ALBUTEROL 2.5 MG/IPRATROPIUM 0.5 MG NEB (PRN) NEB ×2 (02:21→18:32)
[2017-01-01] MEDS: methylPREDNISolone SOD SUCC 125 MG/2 ML VIAL IV PUSH SCH ×2 (04:32→16:00)
[2017-01-01] MEDS: RESP: ALBUTEROL 2.5 MG/IPRATROPIUM 0.5 MG NEB (SCH) NEB ×3 (07:15→20:24)
[2017-01-01] MEDS: PRIMIDONE 250 MG TAB PO SCH ×3 (09:00→17:24)
[2017-01-01] MEDS: FAMOTIDINE 20 MG TAB PO SCH ×2 (09:35→21:04)
[2017-01-01] MEDS: PROPRANOLOL HCL 20 MG TAB PO SCH ×2 (09:35→21:04)
[2017-01-01] MEDS: DOXYCYCLINE INJ 100 MG in SODIUM CHLORIDE 0.9% INJ 100 ML IV SCH ×2 (09:36→23:56)
[2017-01-01] MEDS: SODIUM CHLORIDE 0.9% FLUSH 5 ML FLUSH IV FLUSH SCH ×2 (09:37→21:00)
--- NOTE | 2017-01-01 11:57 | HHI.HP ---
bel oh [facility] Jv Oh MD Admission Diagnosis Pneumonia Diagnoses: Chief Complaint: Short of breath and fever Travel History International Travel<30 Days: No Contact w/Intl Traveler <30 Da: No Traveled to Known Affected Are: No History of Present Illness This patient is a 71-year-old male who was just admitted to the hospital for COPD exacerbation which is rather mild. Unfortunately he did go home after feeling better on steroids and bronchodilators. He came back with temperature 101 at home increasing cough and increasing work of breathing with dyspnea on exertion. Patient is found to have a right lower lobe pneumonia and has been started on IV antibiotics and given oxygen. Patient does not better after being watched overnight. He has not had any further fevers. He does have quite a productive cough however. Patient has been admitted to the hospital for further evaluation treatment of acute pneumonia and COPD exacerbation. Review of Systems Constitutional: DENIES: Diaphoretic episodes, Fatigue, Fever, Weight gain, Weight loss, Chills, Dizziness, Change in appetite, Night Sweats Endocrine: DENIES: Heat/cold intolerance, Polydipsia, Polyuria, Polyphagia Eyes: DENIES: Blurred vision, Diplopia, Eye inflammation, Eye pain, Vision loss , Photosensitivity, Double Vision Ears, nose, mouth, throat: DENIES: Tinnitus, Hearing loss, Vertigo, Nasal discharge, Oral lesions, Throat pain, Hoarseness, Ear Pain, Running Nose, Epistaxis, Sinus Pain, Toothache, Odynophagia Respiratory: COMPLAINS OF: Cough, Wheezing, Sputum production, Shortness of breath, DENIES: Apneas, Snoring, Hemoptysis Cardiovascular: DENIES: Chest pain, Palpitations, Syncope, Dyspnea on Exertion , PND, Lower Extremity Edema, Orthopnea, Claudication Gastrointestinal: DENIES: Abdominal pain, Black stools, Bloody stools, Constipation, Diarrhea, Nausea, Vomiting, Difficulty Swallowing, Anorexia Genitourinary: DENIES: Sexual dysfunction, Urinary frequency, Urinary incontinence, Urgency, Hematuria, Dysuria, Nocturia, Penile Discharge, Testicular Pain, Testicular Swelling Musculoskeletal: DENIES: Joint pain, Muscle aches, Stiffness, Joint Swelling, Back pain, Neck pain Integumentary: DENIES: Abnormal pigmentation, Nail changes, Pruritus, Rash Immunologic/allergic: DENIES: Eczema, Urticaria Neurologic: DENIES: Abnormal gait, Headache, Localized weakness, Paresthesias, Seizures, Speech Problems, Tremor, Poor Balance Psychiatric: DENIES: Anxiety, Confusion, Mood changes, Depression, Hallucinations, Agitation, Suicidal Ideation, Homicidal Ideation, Delusions Past Family Social History Past Medical History COPD Diabetes mellitus with neuropathy Iron deficiency anemia Hypothyroidism Past Surgical History Back bilateral cataracts Cholecystectomy Blepharoplasty right upper lobe thoracotomy Reported Medications Reviewed in the medical record, recently discharged on steroids Allergies: Coded Allergies: Demerol (Verified Allergy, Severe, Anaphylaxis, 12/31/16) Valium (Verified Allergy, Severe, Anaphylaxis, 12/31/16) Tuberculin PPD (Verified Allergy, Intermediate, INFLAMED AREA, LOCKS ARM UP., 12/31/16) Keflex (Verified Allergy, Unknown, 12/31/16) Active Ordered Medications Reviewed in the medical record Family History Father from tuberculosis Social History No current tobacco or alcohol dependency, recently relocated from [place] and lives with his Physical Exam Vital Signs Vital Signs Date Time Temp Pulse Resp B/P Pulse Ox O2 Delivery O2 Flow Rate FiO2 01/01/17 08:00 97.8 80 18 126/80 96 01/01/17 07:19 98 Nasal Cannula 3.00 01/01/17 07:05 94 20 97 Nasal Cannula 2 01/01/17 07:05 20 97 Nasal Cannula 2 01/01/17 07:05 97 Nasal Cannula 2 01/01/17 07:05 98.3 94 20 131/77 97 Nasal Cannula 2 01/01/17 04:35 98.1 76 16 116/68 99 Nasal Cannula 2 01/01/17 02:14 Aerosol Mask 01/01/17 00:56 98.1 73 16 112/73 98 Nasal Cannula 2 01/01/17 00:50 Nasal Cannula 2 12/31/16 20:30 99 Nasal Cannula 2.00 12/31/16 19:59 79 12/31/16 19:55 98.0 79 18 117/75 97 Nasal Cannula 2 12/31/16 17:10 74 16 108/67 98 Nasal Cannula 2 12/31/16 17:05 70 16 94/65 97 Nasal Cannula 2 12/31/16 16:35 95 Room Air 12/31/16 16:35 16 96 Nasal Cannula 2 12/31/16 16:11 94 Room Air 12/31/16 16:05 72 16 106/66 98 Nasal Cannula 2 12/31/16 15:50 98.3 74 16 115/65 95 Physical Exam GENERAL: This is a well-nourished, well-developed patient, in no apparent distress. SKIN: No rashes, ecchymoses or lesions. Cool and dry. HEAD: Atraumatic. Normocephalic. No temporal or scalp tenderness. EYES: Pupils equal round and reactive. Extraocular motions intact. No scleral icterus. No injection or drainage. ENT: Nose without bleeding, purulent drainage or septal hematoma. Throat without erythema, tonsillar hypertrophy or exudate. Uvula midline. Airway patent. NECK: Trachea midline. No JVD or lymphadenopathy. Supple, nontender, no meningeal signs. CARDIOVASCULAR: Regular rate and rhythm without murmurs, gallops, or rubs. RESPIRATORY: Bilateral coarse wheezes and rhonchi and coughing GASTROINTESTINAL: Abdomen soft, non-tender, nondistended. No hepato-splenomegaly , or palpable masses. No guarding. MUSCULOSKELETAL: Extremities without clubbing, cyanosis, or edema. No joint tenderness, effusion, or edema noted. No calf tenderness. Negative Homans sign bilaterally. NEUROLOGICAL: Awake and alert. Cranial nerves II through XII intact. Motor and sensory grossly within normal limits. Five out of 5 muscle strength in all muscle groups. Normal speech. Laboratory Laboratory Tests Test 12/31/16 12/31/16 12/31/16 16:30 16:45 16:48 White Blood Count 13.5 Red Blood Count 3.96 Hemoglobin 12.5 Hematocrit 36.3 Mean Corpuscular Volume 91.7 Mean Corpuscular Hemoglobin 31.6 Mean Corpuscular Hemoglobin 34.5 Concent Red Cell Distribution Width 12.4 Platelet Count 207 Mean Platelet Volume 7.5 Neutrophils (%) (Auto) 86.2 Lymphocytes (%) (Auto) 7.2 Monocytes (%) (Auto) 4.4 Eosinophils (%) (Auto) 2.1 Basophils (%) (Auto) 0.1 Neutrophils # (Auto) 11.6 Lymphocytes # (Auto) 1.0 Monocytes # (Auto) 0.6 Eosinophils # (Auto) 0.3 Basophils # (Auto) 0.0 CBC Comment DIFF FINAL Differential Comment Prothrombin Time 10.0 Prothromb Time International 0.9 Ratio Activated Partial 27.3 Thromboplast Time Sodium Level 137 Potassium Level 4.3 Chloride Level 101 Carbon Dioxide Level 26.1 Anion Gap 10 Blood Urea Nitrogen 26 Creatinine 1.20 Estimat Glomerular Filtration 60 Rate Random Glucose 164 Calcium Level 9.0 Troponin I LESS THAN 0.02 B-Type Natriuretic Peptide 12 Lipase 295 Lactic Acid Level 1.6 Blood Gas Puncture Site RT RADIAL Blood Gas Patient Temperature 98.6 Blood Gas HCO3 25 Blood Gas Base Excess 1.9 Blood Gas Oxygen Saturation 94 Arterial Blood pH 7.48 Arterial Blood Partial 34 Pressure CO2 Arterial Blood Partial 82 Pressure O2 Arterial Blood Oxygen Content 15.5 Arterial Blood 1.1 Carboxyhemoglobin Arterial Blood Methemoglobin 1.1 Blood Gas Hemoglobin 11.7 Oxygen Delivery Device ROOM AIR Blood Gas Inspired Oxygen 21 Date/Time Procedure Status Source Growth 12/31/16 16:38 Aerobic Blood Culture - Preliminary Resulted Blood Peripheral NO GROWTH IN 1 DAY 12/31/16 16:38 Anaerobic Blood Culture - Preliminary Resulted Blood Peripheral NO GROWTH IN 1 DAY Result Diagram: 12/31/16 1630 12/31/16 [address] Angiography 12/31/16 1630 Signed Impressions: Service Date/Time: Saturday, December 31, 2016 17:30 - CONCLUSION: Negative for pulmonary embolization. Patchy areas of coalescing airspace disease in the right lower lobe. Brian Gardiner MD Abdomen/Pelvis CT 12/31/16 0000 Signed Impressions: Service Date/Time: Saturday, December 31, 2016 17:30 - CONCLUSION: Punctate and coarsened calcifications in the head and body the pancreas. 1.1 cm cyst anterior aspect of the body of the pancreas. Surgical absence of gallbladder clips in place. 3 cm infrarenal abdominal aortic aneurysm without leak not extending to the bifurcation. Punctate nonobstructive calyceal stone lower pole of the left kidney. Degenerative findings of the lower lumbar spine. 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 He was treated for about a year Sputum pending Continue with bronchodilators, steroids (3) DM2 (diabetes mellitus, type 2) ICD Code: E11.9 Status: Acute Plan: Continue with sliding scale insulin for now, hold metformin due to recent contrast Follow-up with diabetic diet Hemoglobin A1c pending Patient on treatment study at home, we will add Levemir while off home medications and on steroids (4) REGIS (obstructive sleep apnea) ICD Code: G47.33 Status: Acute Plan: Patient on Z-Stevie at home which we will continue May need oxygen (previously had oxygen but recently relocated to [place] and does not have this at home) Physician Certification 2 Midnight Certification Type: Admission for Inpatient Services Order for Inpatient Services The services are ordered in accordance with Medicare regulations or non- Medicare payer requirements, as applicable. In the case of services not specified as inpatient-only, they are appropriately provided as inpatient services in accordance with the 2-midnight benchmark. Estimated LOS (days): 4 4 days is the estimated time the patient will need to remain in the hospital, assuming treatment plan goals are met and no additional complications. Post-Hospital Plan: Home Problem Qualifiers (1) Pneumonia: Qualified Code: J18.1 - Pneumonia of right lower lobe due to infectious organism Teresa Lin MD Jan 01, 2017 11:57
[2017-01-01] MEDS ORDERED: GLUCAGON 1 MG/ML VIAL OTHER PRN (12:00)
[2017-01-01] MEDS ORDERED: BISACODYL EC 5 MG TABEC PO ONE (12:00)
[2017-01-01] MEDS ORDERED: VANCOMYCIN INJ 1,000 MG in SODIUM CHLOR 0.9% 250 ML INJ 250 ML IV SCH (12:00)
[2017-01-01] MEDS ORDERED: Vancomycin Consult Pharmacy 1 EA OTHER SCH (12:00)
[2017-01-01] MEDS ORDERED: DEXTROSE 50% IN WATER 50 ML VIAL(D50) IV PUSH PRN (12:00)
[2017-01-01] MEDS ORDERED: VANCOMYCIN INJ 1,500 MG in SODIUM CHLORID 0.9% 500 ML INJ 500 ML IV SCH ×2 (14:00→22:00)
[2017-01-01] MEDS: INSULIN ASPART SUPPLEMENTAL SCALE SQ SCH ×2 (16:00→21:18)
[2017-01-01] MEDS: LEVOFLOXACIN 750 MG PREMIX INJ 150 ML IV SCH (17:22)
[2017-01-01] MEDS: TERAZOSIN HCL 5 MG CAP PO SCH (21:04)
[2017-01-01] MEDS: GABAPENTIN 300 MG CAP PO SCH (21:04)
[2017-01-01] MEDS: MONTELUKAST SODIUM 10 MG TAB PO SCH (21:04)
[2017-01-01] MEDS: INSULIN DETEMIR 100 UNITS/ML VIAL SQ SCH (21:18)
[2017-01-01] MEDS: BUDESONIDE-FORMOTEROL 160/4.5 MCG INHALER INH SCH (21:23)
[2017-01-01] MEDS: METAXALONE 800 MG TAB PO SCH (21:23)
[2017-01-01] MEDS: diphenhydrAMINE HCL 50 MG CAP PO PRN (22:51)
[2017-01-02] VITALS (7 sets, daily range): BP systolic 111–132; BP diastolic 63–84; PULSE 73–100; RESP 18–20; TEMP 96.4–98.7; O2SAT 93–97
[2017-01-02] MEDS: methylPREDNISolone SOD SUCC 125 MG/2 ML VIAL IV PUSH SCH ×2 (05:00→17:31)
[2017-01-02] MEDS: LEVOTHYROXINE SODIUM 25 MCG TAB PO SCH (05:02)
[2017-01-02] MEDS: INSULIN ASPART SUPPLEMENTAL SCALE SQ SCH ×4 (06:09→21:00)
[2017-01-02 06:58] LABS: AUTOMATED NEUTROPHIL # 7.9 TH/MM3 (1.8-7.7); BASOPHIL % 0.3 % (0.0-2.0); EOSINOPHIL # 0.5 TH/MM3 (0-0.4); EOSINOPHIL % 4.4 % (0.0-4.0); LYMPH % 12.7 % (9.0-44.0); LYMPHOCYTE # 1.3 TH/MM3 (1.0-4.8); MEAN CELL VOLUME 91.5 FL (80.0-100.0); MEAN CORPUSCULAR HEMOGLOBIN 30.4 PG (27.0-34.0); MEAN CORPUSCULAR HGB CONC 33.3 % (32.0-36.0); MONO % 6.5 % (0.0-8.0); NEUT % 76.1 % (16.0-70.0); PLATELET COUNT 210 TH/MM3 (150-450); RED CELL DISTRIBUTION WIDTH 12.2 % (11.6-17.2); WHITE BLOOD COUNT 10.4 TH/MM3 (4.0-11.0)
[2017-01-02 07:09] LABS: HEMO FLAGS DIFF FINAL
[2017-01-02] MEDS: RESP: ALBUTEROL 2.5 MG/IPRATROPIUM 0.5 MG NEB (SCH) NEB ×3 (07:21→19:34)
[2017-01-02] MEDS: METAXALONE 800 MG TAB PO SCH ×2 (09:00→22:02)
[2017-01-02] MEDS: PROPRANOLOL HCL 20 MG TAB PO SCH ×2 (09:00→22:02)
[2017-01-02] MEDS: BUDESONIDE-FORMOTEROL 160/4.5 MCG INHALER INH SCH ×2 (09:56→22:01)
[2017-01-02] MEDS: POLYETHYLENE GLYCOL 17 GM PKG PO SCH (09:56)
[2017-01-02] MEDS: TIOTROPIUM BROMIDE 18 MCG INH INH SCH (09:56)
[2017-01-02] MEDS: PRIMIDONE 250 MG TAB PO SCH ×3 (09:57→17:32)
[2017-01-02] MEDS: FERROUS SULFATE 325 MG (65 MG ELEMENTAL IRON) TAB PO SCH (09:57)
[2017-01-02] MEDS: FAMOTIDINE 20 MG TAB PO SCH ×2 (09:57→22:02)
[2017-01-02] MEDS: SODIUM CHLORIDE 0.9% FLUSH 5 ML FLUSH IV FLUSH SCH ×2 (10:01→22:03)
--- NOTE | 2017-01-02 10:31 | HHI.PR ---
Subjective Remarks Patient seen in follow-up for pneumonia and COPD exacerbation. It seems improved. Patient coughing is improved. He feels as if he is getting more air and rest. Objective Vitals Vital Signs Date Time Temp Pulse Resp B/P Pulse Ox O2 Delivery O2 Flow Rate FiO2 01/02/17 08:06 98.1 87 18 118/63 96 01/02/17 07:23 93 Nasal Cannula 2.00 01/02/17 00:00 98.7 100 20 132/84 94 01/01/17 20:24 95 Nasal Cannula 2.00 01/01/17 20:00 98.2 86 20 121/80 95 01/01/17 16:00 98.2 80 18 115/80 97 01/01/17 12:00 98.1 79 18 118/80 96 I/O 01/01/17 01/01/17 01/01/17 01/02/17 01/02/17 01/02/17 07:00 15:00 23:00 07:00 15:00 23:00 Intake Total 848 ml 160 ml Output Total 600 ml Balance -600 ml 848 ml 160 ml Intake Oral 700 ml 160 ml IV Total 148 ml Output Urine Total 600 ml # Voids 1 4 1 # Bowel Movements 0 0 Result Diagram: 01/02/17 0630 12/31/16 1630 A/P Problem List: (1) COPD (chronic obstructive pulmonary disease) ICD Code: J44.9 Status: Acute Plan: Continue with bronchodilators/nebulizer and with IV steroids, Spiriva and Advair (2) Pneumonia ICD Code: J18.9 Status: Acute Plan: Sputum that show heavy normal respiratory karla Continue Levaquin and doxycycline 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 He was treated for about a year Sputum pending Continue with bronchodilators, steroids (3) DM2 (diabetes mellitus, type 2) ICD Code: E11.9 Status: Acute Plan: Continue with sliding scale insulin for now, hold metformin due to recent contrast Follow-up with diabetic diet Hemoglobin A1c pending Patient on treatment study at home, we will add Levemir while off home medications and on steroids (4) REGIS (obstructive sleep apnea) ICD Code: G47.33 Status: Acute Plan: Patient on cpap at home which we will continue May need oxygen (previously had oxygen but recently relocated to [place] and does not have this at home) Discharge Planning likely home 2-3 days, po abx Problem Qualifiers (1) Pneumonia: Qualified Code: J18.1 - Pneumonia of right lower lobe due to infectious organism Teresa Lin MD Jan 02, 2017 10:31
[2017-01-02] MEDS: DOXYCYCLINE INJ 100 MG in SODIUM CHLORIDE 0.9% INJ 100 ML IV SCH ×2 (12:12→23:55)
[2017-01-02] MEDS ORDERED: ENOXAPARIN SODIUM 40 MG/0.4 ML SYRINGE SQ SCH (15:00)
[2017-01-02 15:49] LABS: HEMOGLOBIN A1a 1.5 %; HEMOGLOBIN A1b 2.6 %; HEMOGLOBIN Ao 80.4 %; HEMOGLOBIN LA1C 2.8 %; HEMOGLOBIN P3 8.1 %
[2017-01-02] MEDS: LEVOFLOXACIN 750 MG PREMIX INJ 150 ML IV SCH (17:40)
[2017-01-02] MEDS ORDERED: CALAMINE/PRAMOXINE LOTION 180 ML BTL TOPICAL ONE (20:00)
[2017-01-02] MEDS: GABAPENTIN 300 MG CAP PO SCH (22:01)
[2017-01-02] MEDS: TERAZOSIN HCL 5 MG CAP PO SCH (22:01)
[2017-01-02] MEDS: INSULIN DETEMIR 100 UNITS/ML VIAL SQ SCH (22:01)
[2017-01-02] MEDS: diphenhydrAMINE HCL 50 MG CAP PO PRN (22:02)
[2017-01-02] MEDS: MONTELUKAST SODIUM 10 MG TAB PO SCH (22:02)
[2017-01-03 00:29] VITALS: BP 90/56; PULSE 74; RESP 16; TEMP 98.3; O2SAT 95
[2017-01-03 04:00] VITALS: BP 120/76; PULSE 61; RESP 16; TEMP 97.6; O2SAT 98
[2017-01-03] MEDS: methylPREDNISolone SOD SUCC 125 MG/2 ML VIAL IV PUSH SCH (04:29)
[2017-01-03] MEDS: LEVOTHYROXINE SODIUM 25 MCG TAB PO SCH (06:08)
[2017-01-03] MEDS: INSULIN ASPART SUPPLEMENTAL SCALE SQ SCH ×2 (06:12→10:58)
[2017-01-03] MEDS: RESP: ALBUTEROL 2.5 MG/IPRATROPIUM 0.5 MG NEB (SCH) NEB (06:59)
[2017-01-03 07:01] VITALS: O2SAT 97
[2017-01-03 08:00] VITALS: BP 118/79; PULSE 72; RESP 20; TEMP 98.2; O2SAT 97
[2017-01-03] MEDS: POLYETHYLENE GLYCOL 17 GM PKG PO SCH ×2 (09:00→09:10)
[2017-01-03] MEDS: PROPRANOLOL HCL 20 MG TAB PO SCH (09:00)
[2017-01-03] MEDS: TIOTROPIUM BROMIDE 18 MCG INH INH SCH (09:00)
[2017-01-03] MEDS: PRIMIDONE 250 MG TAB PO SCH ×2 (09:00→11:48)
[2017-01-03] MEDS: FERROUS SULFATE 325 MG (65 MG ELEMENTAL IRON) TAB PO SCH (09:00)
[2017-01-03] MEDS: FAMOTIDINE 20 MG TAB PO SCH (09:00)
[2017-01-03] MEDS: METAXALONE 800 MG TAB PO SCH (09:06)
[2017-01-03] MEDS: BUDESONIDE-FORMOTEROL 160/4.5 MCG INHALER INH SCH (09:06)
[2017-01-03] MEDS: SODIUM CHLORIDE 0.9% FLUSH 5 ML FLUSH IV FLUSH SCH (09:07)
[2017-01-03] MEDS ORDERED: VANCOMYCIN TROUGH XX ONE (09:45)
[2017-01-03] MEDS ORDERED: DOXY100C PO (10:37)
[2017-01-03] MEDS ORDERED: LEVA750T PO (10:37)
--- NOTE | 2017-01-03 10:38 | HHI.DCPOC ---
Discharge Care Plan Diagnosis: (1) COPD exacerbation (2) Pneumonia Goals to Promote Your Health * To prevent worsening of your condition and complications * To maintain your health at the optimal level Directions to Meet Your Goals Take your medications as prescribed Follow your dietary instruction Follow activity as directed Keep your appointments as scheduled Take your immunizations and boosters as scheduled If your symptoms worsen call your PCP, if no PCP go to Urgent Care Center or Emergency Room Smoking is Dangerous to Your Health. Avoid second hand smoke Call the 24-hour hour crisis hotline for domestic abuse at Teresa Lin MD Jan 03, 2017 10:38
--- NOTE | 2017-01-03 10:43 | HHI.DS ---
Discharge Summary Admission Date Dec 31, 2016 at 18:28 Discharge Date: Jan 03, 2017 Admitting Diagnosis Pneumonia (1) COPD (chronic obstructive pulmonary disease) ICD Code: J44.9 Diagnosis: Principal (2) Pneumonia ICD Code: J18.9 Diagnosis: Principal (3) DM2 (diabetes mellitus, type 2) ICD Code: E11.9 (4) REGIS (obstructive sleep apnea) ICD Code: G47.33 Procedures none Brief History - From Admission This patient is a 71-year-old male who was just admitted to the hospital for COPD exacerbation which is rather mild. Unfortunately he did go home after feeling better on steroids and bronchodilators. He came back with temperature 101 at home increasing cough and increasing work of breathing with dyspnea on exertion. Patient is found to have a right lower lobe pneumonia and has been started on IV antibiotics and given oxygen. Patient does not better after being watched overnight. He has not had any further fevers. He does have quite a productive cough however. Patient has been admitted to the hospital for further evaluation treatment of acute pneumonia and COPD exacerbation. CBC/BMP: 01/02/17 0630 12/31/16 1630 Significant Findings Laboratory Tests Test 12/31/16 12/31/16 01/02/17 16:30 16:48 06:30 White Blood Count 13.5 TH/MM3 (4.0-11.0) Red Blood Count 3.96 MIL/MM3 3.60 MIL/MM3 (4.50-5.90) (4.50-5.90) Hemoglobin 12.5 GM/DL 11.0 GM/DL (13.0-17.0) (13.0-17.0) Hematocrit 36.3 % 33.0 % (39.0-51.0) (39.0-51.0) Neutrophils (%) (Auto) 86.2 % 76.1 % (16.0-70.0) (16.0-70.0) Lymphocytes (%) (Auto) 7.2 % (9.0-44.0) Neutrophils # (Auto) 11.6 TH/MM3 7.9 TH/MM3 (1.8-7.7) (1.8-7.7) Blood Urea Nitrogen 26 MG/DL (7-18) Estimat Glomerular Filtration 60 ML/MIN (>89) Rate Random Glucose 164 MG/DL (74-106) Troponin I LESS THAN 0.02 NG/ML (0.02-0.05) Arterial Blood pH 7.48 (7.380-7.420) Arterial Blood Partial 34 mmHG (38-42) Pressure CO2 Blood Gas Hemoglobin 11.7 G/DL (12.0-16.0) Mean Platelet Volume 6.9 FL (7.0-11.0) Eosinophils (%) (Auto) 4.4 % (0.0-4.0) Eosinophils # (Auto) 0.5 TH/MM3 (0-0.4) Imaging Last Impressions CT Angiography 12/31/16 1630 Signed Impressions: Service Date/Time: Saturday, December 31, 2016 17:30 - CONCLUSION: Negative for pulmonary embolization. Patchy areas of coalescing airspace disease in the right lower lobe. Brian Gardiner MD Abdomen/Pelvis CT 12/31/16 0000 Signed Impressions: Service Date/Time: Saturday, December 31, 2016 17:30 - CONCLUSION: Punctate and coarsened calcifications in the head and body the pancreas. 1.1 cm cyst anterior aspect of the body of the pancreas. Surgical absence of gallbladder clips in place. 3 cm infrarenal abdominal aortic aneurysm without leak not extending to the bifurcation. Punctate nonobstructive calyceal stone lower pole of the left kidney. Degenerative findings of the lower lumbar spine. Brian Gardiner MD PE at Discharge GENERAL: This is a well-nourished, well-developed patient, in no apparent distress. CARDIOVASCULAR: Regular rate and rhythm without murmurs, gallops, or rubs. RESPIRATORY: Clear to auscultation. Breath sounds equal bilaterally. No wheezes , rales, or rhonchi. GASTROINTESTINAL: Abdomen soft, non-tender, nondistended. Normal active bowel sounds MUSCULOSKELETAL: Extremities without clubbing, cyanosis, or edema. NEURO: Alert & Oriented x4 to person, place, time, situation. Moves all ext x4 Pt update on day of discharge Recent seen today. Rest or status is improved. No bleeding. Rest well. Discharge plans patient and nursing team Hospital Course This patient is a 71-year-old gentleman comes back to the hospital because of increasing shortness of breath and was found to have pneumonia. And was treated with IV antibiotics for the same. Patient did well. His sputum did show normal respiratory karla and the patient was treated empirically for exacerbation of COPD with pneumonia. He did well was discharged home Pt Condition on Discharge: Good Discharge Disposition: Discharge Home Discharge Time: > 30 minutes Discharge Instructions DIET: Follow Instructions for: Diabetic Diet Activities you can perform: Regular-No Restrictions Follow up Referrals: PCP Follow-up - 2 Weeks New Medications: Doxycycline Hyclate (Doxycycline Hyclate) 100 Mg Cap 100 MG PO BID Infection #14 Ref 0 CAP Levofloxacin (Levaquin) 750 Mg Tab 750 MG PO DAILY Infection #7 Ref 0 TAB Continued Medications: Ascorbic Acid (Vitamin C) 1,000 Mg Tab 2000 MG PO DAILY Nutritional Supplement Ref 0 TAB Buspirone (Buspirone) 5 Mg Tab 5 MG PO PRN Anxiety Ref 0 TAB Docusate Sodium (Stool Softener) 100 Mg Cap 3 TAB PO DAILY Dulaglutide Inj (Trulicity Inj) 0.75 Mg/0.5 Ml Pen 0.75 MG SQ Q7D Blood Sugar Management #4 Ref 0 PEN Ferrous Sulfate (Iron) 325 Mg Tab 65 MG PO DAILY Take Nutritional Supplement Ref 0 TAB Fluticasone-Salmeterol Inh (Advair Diskus Inh) 500-50 Mcg/Blist Aer 1 PUFF INH BID Rinse mouth after use. #1 Ref 0 INHALER Furosemide (Lasix) 40 Mg Tab 20 MG PO DAILY #60 Ref 0 TAB Gabapentin (Gabapentin) 300 Mg Cap 300 MG PO HS #30 Ref 0 CAP Ipratropium-Albuterol Inh (Combivent Respimat Inh) 20-100 Fdc/Act Aero 1 PUFF INH QID PRN WHEEZING #1 Ref 0 INHALER Ipratropium-Albuterol Neb (Duoneb) 0.5-2.5 Mg/3 Ml Neb 1 NEBULE INH Q4HR NEB Breathing Treatment #180 Ref 0 NEBULE Lansoprazole (Lansoprazole) 30 Mg Capdr 30 MG PO DAILY Ref 0 CAP Levothyroxine (Levothyroxine) 25 Mcg Tab 88 MCG PO DAILY Thyroid #30 Ref 0 TAB Loratadine Odt (Claritin Reditabs) 10 Mg Tab 10 MG PO DAILY Allergy Management Ref 0 TAB Magnesium (Magnesium) 250 Mg Tab 1 TAB PO DAILY Metaxalone (Metaxalone) 800 Mg Tab 800 MG PO BID Muscle Spasm Ref 0 TAB Metformin (Metformin) 1,000 Mg Tab 1000 MG PO in am With meals Blood Sugar Management #60 Ref 0 TAB Metformin (Metformin) 500 Mg Tab 500 MG PO HS With meals Blood Sugar Management #60 Ref 0 TAB Methylcellulose (Citrucel) 500 Mg Tab 2 TAB PO DAILY Prevent Constipation Ref 0 TAB Montelukast (Singulair) 10 Mg Tab 10 MG PO HS #30 Ref 0 TAB Multiple Vitamins W/ Minerals (Multivitamin Men) 1 Tab Tab 1 TAB PO DAILY Nutritional Supplement Ref 0 TAB Naproxen (Naproxen) 500 Mg Tab 500 MG PO BID #60 Ref 0 TAB Artemus-3 Fatty Acids (Fish Oil) 1,000 Mg Cap 3000 MG PO DAILY Potassium Chloride ER (Potassium Chloride ER) 20 Meq Tab 20 MEQ PO DAILY Electrolyte Replacement #30 Ref 0 TAB Prednisone (Prednisone) 20 Mg Tab 20 MG PO DIRECTED 20 MG twice a day x 5 days, then 20 MG daily x 5 days, then 10 MG daily x 5 days Inflammation #15 Ref 0 TAB Prednisone (Prednisone) 20 Mg Tab 40 MG PO DIRECTED Ref 0 TAB Primidone (Primidone) 250 Mg Tab 250 MG PO TID Control Seizures #90 Ref 0 TAB Propranolol (Propranolol) 10 Mg Tab 20 MG PO Q12HR #60 Ref 0 TAB Ranitidine (Ranitidine) 300 Mg Cap 300 MG PO HS Ref 0 CAP Simvastatin (Simvastatin) 40 Mg Tab 40 MG PO HS Cholesterol Management #30 Ref 0 TAB Terazosin (Terazosin) 2 Mg Cap 5 MG PO HS #30 Ref 0 CAP Tiotropium Inh (Spiriva Handihaler) 18 Mcg Cap 18 MCG INH DAILY 1 capsule = 18 mcg COPD #30 Ref 0 CAP Triamcinolone Acetonide (Nasal (Nasacort Allergy 24Hr) 55 Mcg/Act Spr DAILY Zinc Gluconate (Zinc) 30 Mg Tab 1 TAB PO DAILY ([Cpap]) Discontinued Medications: Azithromycin (Azithromycin) 500 Mg Tab 500 MG PO DAILY Infection #4 Ref 0 TAB Teresa Lin MD Jan 03, 2017 10:43
[2017-01-03] MEDS: DOXYCYCLINE INJ 100 MG in SODIUM CHLORIDE 0.9% INJ 100 ML IV SCH (10:58)
[2017-01-03] MEDS: RESP: ALBUTEROL 2.5 MG/IPRATROPIUM 0.5 MG NEB (PRN) NEB (11:39)
[2017-01-03 12:00] VITALS: BP 118/78; PULSE 77; RESP 20; TEMP 96.5; O2SAT 96
[2017-01-04] MEDS ORDERED: LEVOTHYROXINE SODIUM 88 MCG TAB PO SCH (06:00)
== END 2017-01-03 14:20 | disposition home or self-care (01) | DRG 194 ==
LOC: PHED 15:49 → PHEDA 18:28 → PHEDH 22:28 → PH3A 01-01 08:05
PROVIDERS: ADMIT Hospitalist; ATTEND Hospitalist
DX: J18.9 Pneumonia, unspecified organism (principal); J44.1 Chronic obstructive pulmonary disease with (acute) exacerbation; J44.0 Chronic obstructive pulmonary disease with (acute) lower respiratory infection; E87.3 Alkalosis; E11.40 Type 2 diabetes mellitus with diabetic neuropathy, unspecified; D50.9 Iron deficiency anemia, unspecified; E03.9 Hypothyroidism, unspecified; G47.33 Obstructive sleep apnea (adult) (pediatric); K21.9 Gastro-esophageal reflux disease without esophagitis; E78.5 Hyperlipidemia, unspecified; E78.00 Pure hypercholesterolemia, unspecified; E07.9 Disorder of thyroid, unspecified; Z86.11 Personal history of tuberculosis
CPT/HCPCS: 36600; 71010; 71275; 74177; 76937; 80048; 80053; 80202; 82805; 82948; 83036; 83605; 83690; 83880; 84484; 85025; 85610; 85730; 87040; 87070; 87205; 87804; 93005; 94150; 94620; 94640; 94664; 96374; G0378; J1650; J1815; J1956; J2920; J2930; J3370; J7040; Q0163; Q9967

== ENCOUNTER 2017-01-27 12:17 | Inpatient (IN) | payer OTHER, MEDICARE ==
[2017-01-27] VITALS (10 sets, daily range): BP systolic 108–138; BP diastolic 62–85; PULSE 69–107; RESP 18–20; TEMP 98–102.8; O2SAT 92–98
[~2017-01-27] VITALS: Ht 175.3 cm; Wt 85.3 kg
[~2017-01-27 12:17] MED LIST changes: -ALBU0.08 NEB; -AZIT500T2 PO; +BUSP5TAB PO; +CPAP; +DOXY100C PO; +LANS30CA PO; +LEVA750T PO; +POTA-163 PO; -POTA75TA PO; +TRIA1SPR5
[2017-01-27] MEDS ORDERED: SODIUM CHLORIDE 0.9% FLUSH 10 ML FLUSH IVF PRN (12:45)
[2017-01-27] MEDS ORDERED: TAMS0.4C4 PO (12:50)
[2017-01-27] MEDS ORDERED: META1TAB19 PO (12:50)
[2017-01-27 13:06] LABS: AUTOMATED NEUTROPHIL # 9.1 TH/MM3 (1.8-7.7); BASOPHIL # 0.3 TH/MM3 (0-0.2); BASOPHIL % 2.6 % (0.0-2.0); EOSINOPHIL # 0.3 TH/MM3 (0-0.4); EOSINOPHIL % 3.1 % (0.0-4.0); HEMATOCRIT 33.6 % (39.0-51.0); HEMO FLAGS DIFF FINAL; LYMPH % 8.2 % (9.0-44.0); LYMPHOCYTE # 0.9 TH/MM3 (1.0-4.8); MEAN CELL VOLUME 90.3 FL (80.0-100.0); MEAN CORPUSCULAR HEMOGLOBIN 31.1 PG (27.0-34.0); MEAN CORPUSCULAR HGB CONC 34.4 % (32.0-36.0); MONO % 4.9 % (0.0-8.0); NEUT % 81.2 % (16.0-70.0); PLATELET COUNT 178 TH/MM3 (150-450); RED BLOOD COUNT 3.72 MIL/MM3 (4.50-5.90); RED CELL DISTRIBUTION WIDTH 12.5 % (11.6-17.2); WHITE BLOOD COUNT 11.1 TH/MM3 (4.0-11.0)
[2017-01-27 13:18] LABS: CHLORIDE 104 MEQ/L (98-107); POTASSIUM 4.2 MEQ/L (3.5-5.1); SODIUM (NA) 140 MEQ/L (136-145)
[2017-01-27 13:20] LABS: BLOOD, URINE NEG (NEG); GLUCOSE,URINE 100 mg/dL (NEG); KETONE, URINE NEG (NEG); NITRITE,URINE NEG (NEG)
[2017-01-27 13:22] LABS: ANION GAP 12 MEQ/L (5-15); BICARBONATE 23.9 MEQ/L (21.0-32.0); BLOOD UREA NITROGEN 19 MG/DL (7-18)
[2017-01-27 13:25] LABS: ALT (GPT) 22 U/L (12-78); AST (GOT) 24 U/L (15-37)
[2017-01-27 13:26] LABS: GLOMERULAR FILTRATION RATE 77 ML/MIN (>89)
[2017-01-27] MEDS ORDERED: PIPERACIL-TAZO 4.5 GM PREMIX 100 ML IV STA (13:26)
--- NOTE | 2017-01-27 13:26 | PD ---
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 He has had some nausea, headache which she rates it a 6 out of 10, and has some back pain according to his . He denies any fevers, vomiting, and diarrhea, black stools, focal neurological deficits, or any other symptoms. He states that the dizziness does not have any obvious exacerbating or alleviating factors. Modifying Factors: None Associated Signs & Symptoms: Dizziness, headache, nausea, back pain, general weakness Risk Factors: Elderly, multiple complicated medical issues, diabetic, AAA, recent pneumonia PFSH Past Medical History Anemia: Yes Cancer: No Cardiovascular Problems: Yes (RBBB) High Cholesterol: Yes COPD: Yes Diabetes: Yes Patient Takes Glucophage: Yes Diminished Hearing: No Endocrine: Yes Gastrointestinal Disorders: Yes GERD: Yes Genitourinary: Yes Immune Disorder: No Implanted Vascular Access Dvce: Yes Neurologic: No Psychiatric: No Reproductive: No Respiratory: Yes (COPD) Thyroid Disease: Yes Past Surgical History Abdominal Surgery: Yes (lap ambrocio 2000) Cholecystectomy: Yes Eye Surgery: Yes (CATARACT BILATERAL, bilateral blephoplasty 2015) Tonsillectomy: Yes Other Surgery: Yes (Bilat ulnar nerve/ r upper lobe thoracotomy) Social History Alcohol Use: Yes Tobacco Use: No Substance Use: No Allergies-Medications (Allergen,Severity, Reaction): Coded Allergies: Demerol (Verified Allergy, Severe, Anaphylaxis, 01/27/17) Valium (Verified Allergy, Severe, Anaphylaxis, 01/27/17) Tuberculin PPD (Verified Allergy, Intermediate, INFLAMED AREA, LOCKS ARM UP., 01/27/17) Keflex (Verified Allergy, Unknown, 01/27/17) Reported Meds & Prescriptions Reported Meds & Active Scripts Active Oxygen tank (Oxygen) 1 Ea Tank 2 Liter JUAN.CANULA CONTINUOUS Oxygen Concentrator Portable Gaseous 2 L/min via Nasal Cannula Continuous For 99 months Reported Metaxalone 800 Mg Tab 800 Mg PO BID Tamsulosin (Tamsulosin HCl) 0.4 Mg Cap 0.4 Mg PO BID Nasacort Allergy 24Hr (Triamcinolone Acetonide (Nasal) 55 Mcg/Act Spr DAILY Lansoprazole 30 Mg Capdr 30 Mg PO DAILY Potassium Chloride ER (Potassium Chloride) 20 Meq Tab 20 Meq PO DAILY Buspirone (Buspirone HCl) 5 Mg Tab 5 Mg PO PRN Metformin (Metformin HCl) 500 Mg Tab 500 Mg PO HS With meals Zinc (Zinc Gluconate) 30 Mg Tab 1 Tab PO DAILY Magnesium 250 Mg Tab 1 Tab PO DAILY Stool Softener (Docusate Sodium) 100 Mg Cap 3 Tab PO DAILY Citrucel (Methylcellulose) 500 Mg Tab 2 Tab PO DAILY Gabapentin 300 Mg Cap 300 Mg PO HS Claritin Reditabs (Loratadine) 10 Mg Tab 10 Mg PO DAILY Fish Oil ([place]-3 Fatty Acids) 1,000 Mg Cap 3,000 Mg PO DAILY Combivent Respimat Inh (Ipratropium-Albuterol Inh) 20-100 Senior Care/Act Aero 1 Puff INH QID PRN Vitamin C (Ascorbic Acid) 1,000 Mg Tab 2,000 Mg PO DAILY Multivitamin Men (Multiple Vitamins W/ Minerals) 1 Tab Tab 1 Tab PO DAILY Singulair (Montelukast Sodium) 10 Mg Tab 10 Mg PO HS Metformin (Metformin HCl) 1,000 Mg Tab 1,000 Mg PO IN AM With meals Naproxen 500 Mg Tab 500 Mg PO BID Trulicity Inj (Dulaglutide Inj) 0.75 Mg/0.5 Ml Pen 0.75 Mg SQ Q7D Simvastatin 40 Mg Tab 40 Mg PO HS Lasix (Furosemide) 40 Mg Tab 20 Mg PO DAILY Iron (Ferrous Sulfate) 325 Mg Tab 65 Mg PO DAILY Take Ranitidine (Ranitidine HCl) 300 Mg Cap 300 Mg PO HS Propranolol (Propranolol HCl) 10 Mg Tab 10 Mg PO Q12HR Primidone 250 Mg Tab 250 Mg PO TID Levothyroxine (Levothyroxine Sodium) 25 Mcg Tab 88 Mcg PO DAILY Spiriva Handihaler (Tiotropium Inh) 18 Mcg Cap 18 Mcg INH DAILY 1 capsule = 18 mcg Advair Diskus Inh (Fluticasone-Salmeterol Inh) 500-50 Mcg/Blist Aer 1 Puff INH BID Rinse mouth after use. Review of Systems Except as stated in HPI: all other systems reviewed are Neg Physical Exam Narrative GENERAL: Well-developed elderly white male who is awake, alert, oriented 3. Currently not in acute distress. SKIN: Warm and dry. HEAD: Atraumatic. Normocephalic. EYES: Pupils equal and round. No scleral icterus. No injection or drainage. ENT: No nasal bleeding or discharge. Mucous membranes pink and moist. NECK: Trachea midline. No JVD. CARDIOVASCULAR: Regular rate and rhythm. No murmur appreciated. RESPIRATORY: No accessory muscle use. Clear to auscultation. Breath sounds equal bilaterally. GASTROINTESTINAL: Abdomen soft, mild periumbilical tenderness without guarding or rebound, nondistended. Hepatic and splenic margins not palpable. MUSCULOSKELETAL: No obvious deformities. No clubbing. No cyanosis. No edema. NEUROLOGICAL: Awake and alert. No obvious cranial nerve deficits. Motor grossly within normal limits. Normal speech. PSYCHIATRIC: Appropriate mood and affect; insight and judgment normal. Data Data Last Documented VS Vital Signs Date Time Temp Pulse Resp B/P Pulse Ox O2 Delivery O2 Flow Rate FiO2 01/27/17 15:43 100.1 95 20 125/67 93 01/27/17 12:27 Room Air Orders Complete Blood Count With Diff (01/27/17 12:43) Comprehensive Metabolic Panel (01/27/17 12:43) Magnesium (Mg) (01/27/17 12:43) Ckmb (Isoenzyme) Profile (01/27/17 12:43) Troponin I (01/27/17 12:43) Urinalysis - C+S If Indicated (01/27/17 12:43) Ecg Monitoring (01/27/17 12:43) Iv Access Insert/Monitor (01/27/17 12:43) Oximetry (01/27/17 12:43) Sodium Chloride 0.9% Flush (Ns Flush) (01/27/17 12:45) Ct Brain W/O Iv Contrast(Rout) (01/27/17 12:54) Cta Thor Abd Aorta W Iv C W3d (01/27/17 ) Sodium Chlor 0.9% 1000 Ml Inj (Ns 1000 M (01/27/17 13:30) Acetaminophen (Tylenol) (01/27/17 13:30) Blood Culture (01/27/17 13:26) Lactic Acid Sepsis Protocol (01/27/17 13:26) Piperacil-Tazo 4.5 Gm Premix (Zosyn 4.5 (01/27/17 13:26) Iohexol 350 Inj (Omnipaque 350 Inj) (01/27/17 14:50) Electrocardiogram (01/27/17 12:35) Labs Laboratory Tests Test 01/27/17 01/27/17 01/27/17 12:55 13:00 13:35 White Blood Count 11.1 TH/MM3 Red Blood Count 3.72 MIL/MM3 Hemoglobin 11.6 GM/DL Hematocrit 33.6 % Mean Corpuscular Volume 90.3 FL Mean Corpuscular Hemoglobin 31.1 PG Mean Corpuscular Hemoglobin 34.4 % Concent Red Cell Distribution Width 12.5 % Platelet Count 178 TH/MM3 Mean Platelet Volume 7.3 FL Neutrophils (%) (Auto) 81.2 % Lymphocytes (%) (Auto) 8.2 % Monocytes (%) (Auto) 4.9 % Eosinophils (%) (Auto) 3.1 % Basophils (%) (Auto) 2.6 % Neutrophils # (Auto) 9.1 TH/MM3 Lymphocytes # (Auto) 0.9 TH/MM3 Monocytes # (Auto) 0.5 TH/MM3 Eosinophils # (Auto) 0.3 TH/MM3 Basophils # (Auto) 0.3 TH/MM3 CBC Comment DIFF FINAL Differential Comment Sodium Level 140 MEQ/L Potassium Level 4.2 MEQ/L Chloride Level 104 MEQ/L Carbon Dioxide Level 23.9 MEQ/L Anion Gap 12 MEQ/L Blood Urea Nitrogen 19 MG/DL Creatinine 0.96 MG/DL Estimat Glomerular Filtration 77 ML/MIN Rate Random Glucose 174 MG/DL Calcium Level 8.8 MG/DL Magnesium Level 2.0 MG/DL Total Bilirubin 0.5 MG/DL Aspartate Amino Transf 24 U/L (AST/SGOT) Alanine Aminotransferase 22 U/L (ALT/SGPT) Alkaline Phosphatase 100 U/L Total Creatine Kinase 57 U/L Troponin I LESS THAN 0.02 NG/ML Total Protein 6.7 GM/DL Albumin 3.3 GM/DL Urine Collection Type CLEAN CATCH Urine Color YELLOW Urine Turbidity CLEAR Urine pH 7.0 Urine Specific Kiefer 1.021 Urine Protein NEG mg/dL Urine Glucose (UA) 100 mg/dL Urine Ketones NEG mg/dL Urine Occult Blood NEG Urine Nitrite NEG Urine Bilirubin NEG Urine Leukocyte Esterase NEG Urine WBC 0-2 /hpf Microscopic Urinalysis Comment CULT NOT INDICATED Lactic Acid Level 2.1 mmol/L MDM Medical Decision Making Medical Screen Exam Complete: Yes Emergency Medical Condition: Yes Medical Record Reviewed: Yes Interpretation(s) EKG shows sinus tachycardia rate of 100 bpm with a right bundle branch block pattern. No signs of acute ST-T changes. Laboratory Tests Test 01/27/17 01/27/17 01/27/17 12:55 13:00 13:35 White Blood Count 11.1 TH/MM3 (4.0-11.0) Red Blood Count 3.72 MIL/MM3 (4.50-5.90) Hemoglobin 11.6 GM/DL (13.0-17.0) Hematocrit 33.6 % (39.0-51.0) Neutrophils (%) (Auto) 81.2 % (16.0-70.0) Lymphocytes (%) (Auto) 8.2 % (9.0-44.0) Basophils (%) (Auto) 2.6 % (0.0-2.0) Neutrophils # (Auto) 9.1 TH/MM3 (1.8-7.7) Lymphocytes # (Auto) 0.9 TH/MM3 (1.0-4.8) Basophils # (Auto) 0.3 TH/MM3 (0-0.2) Blood Urea Nitrogen 19 MG/DL (7-18) Estimat Glomerular Filtration 77 ML/MIN (>89) Rate Random Glucose 174 MG/DL (74-106) Troponin I LESS THAN 0.02 NG/ML (0.02-0.05) Albumin 3.3 GM/DL (3.4-5.0) Urine Glucose (UA) 100 mg/dL (NEG) Lactic Acid Level 2.1 mmol/L (0.4-2.0) Last [address] 01/27/17 1254 Signed Impressions: Service Date/Time: Friday, January 27, 2017 14:20 - CONCLUSION: 1. Chronic sinusitis. 2. Otherwise negative. Raúl Winter MD Aorta CTA 01/27/17 0000 Signed Impressions: Service Date/Time: Friday, January 27, 2017 14:28 - CONCLUSION: No acute vascular findings in the chest, abdomen or pelvis. Patchy nodular parenchymal lung infiltrates, most notably in the right lung with some new areas of infiltrate in the right medial retrohilar region. Continued followup recommended versus additional short-term evaluation with PET/CT. Stable small cystic pancreatic mass. Delio Lees MD Differential Diagnosis Dizziness, nausea, back pain, general weakness, back painsepsis versus UTI versus dehydration versus metabolic issues versus leaking AAA versus vertigo Narrative Course Lab work shows lactic acidosis and white count elevation concerning for sepsis. IV fluids and antibiotics were given after blood cultures were drawn. CAT scan is showing signs of pneumonia and at this point, my plan would be to admit the patient for further treatment. Case is discussed with Dr. Welch for admission. Diagnosis Primary Impression: Pneumonia Admitting Information Admitting Physician Requests: Admit Blanquita Heck MD Jan 27, 2017 13:26 Blanquita Heck MD Jan 27, 2017 13:26
[2017-01-27 13:27] LABS: TOTAL BILIRUBIN ADULT 0.5 MG/DL (0.2-1.0)
[2017-01-27 13:28] LABS: ALKALINE PHOSPHATASE 100 U/L (45-117)
[2017-01-27 13:30] LABS: COMMENT (UR) CULT NOT INDICATED; CULTURE IF INDICATED CULT NOT INDICATED; METHOD OF COLLECTION CLEAN CATCH; URINE COLOR YELLOW (YELLW/STRAW); WBC, URINE 0-2 /hpf (0-5)
[2017-01-27] MEDS ORDERED: ACETAMINOPHEN 325 MG TAB PO ONE (13:30)
[2017-01-27] MEDS ORDERED: SODIUM CHLOR 0.9% 1000 ML INJ 1,000 ML IV ONE (13:30)
[2017-01-27 13:35] LABS: CREATINE KINASE 57 U/L (39-308)
[2017-01-27] MEDS ORDERED: IOHEXOL 350 MG/ML 10 ML VIAL (for RAD DIAG) IV ONE (14:50)
--- NOTE | 2017-01-27 14:56 | RADHPO ---
EXAM DATE/TIME: 01/27/2017 14:20 [facility] COMPARISON: No previous studies available for comparison. INDICATIONS : Dizziness and short of breath. RADIATION DOSE: 65.38 CTDIvol (mGy) MEDICAL HISTORY : Chronic obstructive pulmonary disease. Diabetes. SURGICAL HISTORY : Cholecystectomy. ENCOUNTER: Initial ACUITY: 1 day PAIN SCALE: 0/10 LOCATION: cranial TECHNIQUE: Multiple contiguous axial images were obtained of the head. Using automated exposure control and adj ustment of the mA and/or kV according to patient size, radiation dose was kept as low as reasonably a chievable to obtain optimal diagnostic quality images. FINDINGS: CEREBRUM: The ventricles are normal for age. No evidence of midline shift, mass lesion, hemorrhage or acute in farction. No extra-axial fluid collections are seen. POSTERIOR FOSSA: The cerebellum and brainstem are intact. The 4th ventricle is midline. The cerebellopontine angle i s unremarkable. EXTRACRANIAL: The visualized portion of the orbits is intact. Mucoperiosteal thickening is seen in the ethmoid air cells bilaterally with near opacification of the left sphenoid. SKULL: The calvaria is intact. No evidence of skull fracture. CONCLUSION: 1. Chronic sinusitis. 2. Otherwise negative. Raúl Winter MD on January 27, 2017 at 14:52 Board Certified Radiologist. This report was verified electronically.
--- NOTE | 2017-01-27 15:32 | RADHPO ---
EXAM DATE/TIME: 01/27/2017 14:28 [facility] COMPARISON: CT ABDOMEN & PELVIS W CONTRAST, December 31, 2016, 17:30. CT PULMONARY ANGIOGRAM, December 31, 2016, 17:30. INDICATIONS : Dizziness and short of breath. Evaluate for aneurysm. IV CONTRAST: 95 cc Omnipaque 350 (iohexol) IV RADIATION DOSE: 18.17 CTDIvol (mGy) MEDICAL HISTORY : Chronic obstructive pulmonary disease. Aneurysm, abdominal. Diabetes. SURGICAL HISTORY : Cholecystectomy. ENCOUNTER: Initial ACUITY: 1 day PAIN SCALE: 0/10 LOCATION: chest abdomen/pelvis TECHNIQUE: Volumetric scanning was performed using a multi-row detector CT scanner. The data was post processed with a variety of visualization algorithms including full volume maximum intensity projection, multi -planar sliding thin slab reformation, curved planar reformation, and surface rendering techniques. Using automated exposure control and adjustment of the mA and/or kV according to patient size, radiat ion dose was kept as low as reasonably achievable to obtain optimal diagnostic quality images. FINDINGS: LUNGS: There patchy areas of parenchymal lung density, some stable by comparison to previous however also a couple of new areas of nodular infiltrate most notably in the medial paraspinal right retrohilar yazan on. Continued imaging followup would be suggested or further evaluation with PET/CT may alternatively be beneficial depending on patient risk factors for lung cancer another malignancy. MEDIASTINUM: No abnormally enlarged lymph nodes by CT criteria. No axillary or hilar abnormalities are identified. ABDOMEN: The liver and spleen are free of focal defects. There is a stable tiny oval cyst in the proximal body of the pancreas. Scattered pancreatic calcifications are again noted. Gallbladder surgically absent. . The adrenal glands are normal. The kidneys demonstrate no evidence of solid renal mass or hydroneph rosis. No free fluid or abdominal masses are identified. No para-aortic adenopathy is seen. PELVIS: No evidence of free fluid or pelvic mass. No abnormally enlarged inguinal or retroperitoneal lymph no magan are present. The bladder is unremarkable. THORACIC AORTA: The thoracic aortic root is normal with normal branching of the great vessels. There is no evidence of aneurysm or dissection. ABDOMINAL AORTA: Minimal ectasia of the infrarenal aorta. Patchy intimal calcification. No significant stenosis. No di ssection. Visceral vessels are intact with incidental separate origin of the hepatic artery from the aorta adjacent to the celiac trunk. The left gastric also appears to arise as an independent vessel. PELVIC VESSELS: The internal iliac and external iliac vessels are patent without aneurysm or stenosis. CONCLUSION: No acute vascular findings in the chest, abdomen or pelvis. Patchy nodular parenchymal lung infiltrates, most notably in the right lung with some new areas of in filtrate in the right medial retrohilar region. Continued followup recommended versus additional shor t-term evaluation with PET/CT. Stable small cystic pancreatic mass. Delio Lees MD on January 27, 2017 at 15:20 Board Certified Radiologist. This report was verified electronically.
[2017-01-27] MEDS ORDERED: AZITHROMYCIN INJ 500 MG in SODIUM CHLOR 0.9% 250 ML INJ 250 ML IV ONE (15:45)
[2017-01-27 15:46] LABS: LACTIC ACID GHOST NOT REPORTABLE
[2017-01-27] MEDS ORDERED: SODIUM CHLOR 0.9% 1000 ML INJ 1,000 ML IV SCH (16:54)
[2017-01-27] MEDS ORDERED: VANCOMYCIN INJ 1,300 MG in SODIUM CHLORID 0.9% 500 ML INJ 500 ML IV SCH (17:00)
[2017-01-27] MEDS ORDERED: ONDANSETRON HCL 4 MG/2 ML VIAL IVP PRN (17:00)
[2017-01-27] MEDS ORDERED: Vancomycin Consult Pharmacy 1 EA XX SCH (17:00)
[2017-01-27] MEDS ORDERED: ACETAMINOPHEN 325 MG TAB PO PRN (17:00)
[2017-01-27] MEDS: LEVOFLOXACIN 750 MG PREMIX INJ 150 ML IV SCH (17:36)
[2017-01-27] MEDS ORDERED: methylPREDNISolone SOD SUCC 40 MG/1 ML VIAL IV SCH (18:00)
--- NOTE | 2017-01-27 19:09 | HHI.HP ---
HPI Service [facility] Hospitalists Primary Care Physician Jv Oh MD Admission Diagnosis pneumonia Diagnoses: Chief Complaint: Cough Dizziness Lightheadedness Weakness Fever Travel History International Travel<30 Days: No Contact w/Intl Traveler <30 Da: No Traveled to Known Affected Are: No Sepsis Criteria SIRS Criteria (2 or more): Temp > 100.9 or < 96.8, Heart rate over 90 Sepsis Criteria (SIRS+source): Infect source susp/known Severe Sepsis (+one): Lactate >2 Criteria Outcome: Meets severe sepsis criteria History of Present Illness This is a 71-year-old male with a past medical history significant for COPD who was previously utilizing oxygen at night but has not had any since June when he had to return the equipment prior to moving to this area from [place], 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 Patient states yesterday he was square dancing with his when he suddenly developed severe dizziness and weakness forcing him to sit down. This morning he woke up with a headache and developed a cough without associated shortness of breath. He also reports that he was extremely lightheaded and disoriented and was basically unable to stand. He states this fever at home was as high as 102 and his blood sugar was 179 which was very high for him and usually indicates an infection. He denies any associated chest pain or nausea or vomiting. Patient was admitted on December 31 with right lower lobe pneumonia. At that time he had significant shortness of breath and sputum production which he denies having now. Just prior to that admission, he was admitted for mild COPD exacerbation. In the ED, head CT was obtained and showed only a chronic sinusitis. CTA was obtained showing patchy nodular parenchymal lung infiltrates, most notably in the right lung with some new areas of infiltrate in the right medial retrohilar region. He is febrile with a temperature of 102.8 and elevated white count of 11.1 with left shift. Incidentally patient was just seen for the first time in Dr. Meehan's clinic and was diagnosed with moderate emphysema and was scheduled for sleep study as an outpatient. Review of Systems Constitutional: COMPLAINS OF: Fever (as high as 102.8), Chills, Dizziness (as stated in history of present illness) Endocrine: DENIES: Polydipsia, Polyuria, Polyphagia Eyes: DENIES: Blurred vision, Diplopia Ears, nose, mouth, throat: DENIES: Nasal discharge, Throat pain, Running Nose Respiratory: COMPLAINS OF: Cough (started today), Wheezing, DENIES: Hemoptysis , Shortness of breath Cardiovascular: DENIES: Chest pain, Palpitations, Syncope, Lower Extremity Edema Gastrointestinal: DENIES: Abdominal pain, Black stools, Bloody stools, Nausea, Vomiting Genitourinary: DENIES: Urgency, Hematuria, Dysuria Musculoskeletal: DENIES: Joint Swelling, Back pain, Neck pain Integumentary: DENIES: Rash Hematologic/lymphatic: DENIES: Lymphadenopathy Neurologic: DENIES: Headache, Localized weakness, Paresthesias, Seizures Psychiatric: DENIES: Confusion, Mood changes, Depression Past Family Social History Past Medical History COPD Diabetes mellitus with neuropathy Iron deficiency anemia Hypothyroidism BPH Allergies AAA History of pneumonia 4 weeks ago requiring hospitalization REGIS History of tuberculosis Past Surgical History bilateral cataracts Cholecystectomy Blepharoplasty right upper lobe thoracotomy Tonsillectomy Bilateral ulnar nerve surgery Reported Medications Metaxalone 800 Mg Tab 800 Mg PO BID Tamsulosin (Tamsulosin HCl) 0.4 Mg Cap 0.4 Mg PO BID Nasacort Allergy 24Hr (Triamcinolone Acetonide (Nasal) 55 Mcg/Act Spr DAILY Lansoprazole 30 Mg Capdr 30 Mg PO DAILY Potassium Chloride ER (Potassium Chloride) 20 Meq Tab 20 Meq PO DAILY Buspirone (Buspirone HCl) 5 Mg Tab 5 Mg PO PRN Metformin (Metformin HCl) 500 Mg Tab 500 Mg PO HS With meals Zinc (Zinc Gluconate) 30 Mg Tab 1 Tab PO DAILY Magnesium 250 Mg Tab 1 Tab PO DAILY Stool Softener (Docusate Sodium) 100 Mg Cap 3 Tab PO DAILY Citrucel (Methylcellulose) 500 Mg Tab 2 Tab PO DAILY Gabapentin 300 Mg Cap 300 Mg PO HS Claritin Reditabs (Loratadine) 10 Mg Tab 10 Mg PO DAILY Fish Oil ([address]-3 Fatty Acids) 1,000 Mg Cap 3,000 Mg PO DAILY Combivent Respimat Inh (Ipratropium-Albuterol Inh) 20-[address] Half-[address]/Act Aero 1 Puff INH QID PRN Vitamin C (Ascorbic Acid) 1,000 Mg Tab 2,000 Mg PO DAILY Multivitamin Men (Multiple Vitamins W/ Minerals) 1 Tab Tab 1 Tab PO DAILY Singulair (Montelukast Sodium) 10 Mg Tab 10 Mg PO HS Metformin (Metformin HCl) 1,000 Mg Tab 1,000 Mg PO IN AM With meals Naproxen 500 Mg Tab 500 Mg PO BID Trulicity Inj (Dulaglutide Inj) 0.75 Mg/0.5 Ml Pen 0.75 Mg SQ Q7D Simvastatin 40 Mg Tab 40 Mg PO HS Lasix (Furosemide) 40 Mg Tab 20 Mg PO DAILY Iron (Ferrous Sulfate) 325 Mg Tab 65 Mg PO DAILY Take Ranitidine (Ranitidine HCl) 300 Mg Cap 300 Mg PO HS Propranolol (Propranolol HCl) 10 Mg Tab 10 Mg PO Q12HR Primidone 250 Mg Tab 250 Mg PO TID Levothyroxine (Levothyroxine Sodium) 25 Mcg Tab 88 Mcg PO DAILY Spiriva Handihaler (Tiotropium Inh) 18 Mcg Cap 18 Mcg INH DAILY 1 capsule = 18 mcg Advair Diskus Inh (Fluticasone-Salmeterol Inh) 500-50 Mcg/Blist Aer 1 Puff INH BID Rinse mouth after use. Allergies: Coded Allergies: Demerol (Verified Allergy, Severe, Anaphylaxis, 01/27/17) Valium (Verified Allergy, Severe, Anaphylaxis, 01/27/17) Tuberculin PPD (Verified Allergy, Intermediate, INFLAMED AREA, LOCKS ARM UP., 01/27/17) Keflex (Verified Allergy, Unknown, 01/27/17) Active Ordered Medications Current Medications Medications (Trade) Dose Ordered Sig/Riaz Route Start Time Stop Time Status Last Admin Sodium Chloride 2 ml 2 ml UNSCH PRN IVF 01/27/17 12:45 Piperacillin Sod/ Tazobactam Sod 100 ml @ 200 mls/hr Q6H IV 01/27/17 21:00 Pharmacy Profile Note 0 ml @ 0 mls/hr UNSCH XX 01/27/17 17:00 (Levaquin 750 Mg Premix Inj) 150 ml @ 100 mls/hr Q24H IV 01/27/17 18:00 01/27/17 17:36 Methylprednisolone Sodium Succinate 40 mg 40 mg Q12H IV 01/27/17 18:00 (NS 1000 ml Inj) 1,000 ml @ 100 mls/hr Q10H IV 01/27/17 16:54 (Tylenol) 650 mg Q4H PRN PO 01/27/17 17:00 (Zofran Inj) 4 mg Q6H PRN IVP 01/27/17 17:00 (Heparin Inj) 5,000 units Q8HR SQ 01/27/17 22:00 (Tylenol) 650 mg Q6H PRN PO 01/27/17 17:00 Sodium Chloride 2 ml 2 ml BID IVF 01/27/17 21:00 (Vancomycin Inj/ NS 250 ml Inj) 262.5 ml @ 250 mls/hr Q12H IV 01/27/17 20:00 Miscellaneous Information SPECIFIC LAB TO BE DRAWN:VANCO TROUGH DATE TO... ONCE ONCE XX 01/29/17 07:45 01/29/17 07:46 Family History Father, from tuberculosis, 1951 Mother, CHF, CAD, age 79 Sister, CAD, diabetes, non-Hodgkin's lymphoma Social History Patient recently relocated from [place]. He is lives with his . Denies any history of alcohol consumption or illicit drug use. Previous history of tobacco use for 40+ years but quit 10 years ago. Physical Exam Vital Signs Vital Signs Date Time Temp Pulse Resp B/P Pulse Ox O2 Delivery O2 Flow Rate FiO2 01/27/17 16:53 102 20 135/72 94 01/27/17 15:43 100.1 95 20 125/67 93 01/27/17 14:46 105 20 138/76 97 01/27/17 13:22 102.8 69 20 127/70 93 01/27/17 13:07 98 01/27/17 12:27 101.2 107 20 121/62 94 Room Air Physical Exam GENERAL: This is a well-nourished, well-developed patient, in no apparent distress. SKIN: No rashes, ecchymoses or lesions. Warm and dry. HEAD: Atraumatic. Normocephalic. No temporal or scalp tenderness. EYES: Pupils equal round and reactive. Extraocular motions intact. No scleral icterus. No injection or drainage. ENT: Nose without bleeding, purulent drainage or septal hematoma. Throat without erythema, tonsillar hypertrophy or exudate. Uvula midline. Airway patent. NECK: Trachea midline. No JVD or lymphadenopathy. Supple, nontender, no meningeal signs. CARDIOVASCULAR: Regular rate and rhythm without murmurs, gallops, or rubs. RESPIRATORY: Diminished breath sounds right greater than left. Bilateral expiratory wheezing. GASTROINTESTINAL: Abdomen soft, non-tender, nondistended. No hepato- splenomegaly. No guarding. (+) Abdominal hernia. MUSCULOSKELETAL: Extremities without clubbing, cyanosis, or edema. No joint tenderness, effusion, or edema noted. No calf tenderness. NEUROLOGICAL: Awake alert oriented moves all extremity no focal neurological deficit Laboratory Laboratory Tests Test 01/27/17 01/27/17 01/27/17 12:55 13:00 13:35 White Blood Count 11.1 Red Blood Count 3.72 Hemoglobin 11.6 Hematocrit 33.6 Mean Corpuscular Volume 90.3 Mean Corpuscular Hemoglobin 31.1 Mean Corpuscular Hemoglobin 34.4 Concent Red Cell Distribution Width 12.5 Platelet Count 178 Mean Platelet Volume 7.3 Neutrophils (%) (Auto) 81.2 Lymphocytes (%) (Auto) 8.2 Monocytes (%) (Auto) 4.9 Eosinophils (%) (Auto) 3.1 Basophils (%) (Auto) 2.6 Neutrophils # (Auto) 9.1 Lymphocytes # (Auto) 0.9 Monocytes # (Auto) 0.5 Eosinophils # (Auto) 0.3 Basophils # (Auto) 0.3 CBC Comment DIFF FINAL Differential Comment Sodium Level 140 Potassium Level 4.2 Chloride Level 104 Carbon Dioxide Level 23.9 Anion Gap 12 Blood Urea Nitrogen 19 Creatinine 0.96 Estimat Glomerular Filtration 77 Rate Random Glucose 174 Calcium Level 8.8 Magnesium Level 2.0 Total Bilirubin 0.5 Aspartate Amino Transf 24 (AST/SGOT) Alanine Aminotransferase 22 (ALT/SGPT) Alkaline Phosphatase 100 Total Creatine Kinase 57 Troponin I LESS THAN 0.02 Total Protein 6.7 Albumin 3.3 Urine Collection Type CLEAN CATCH Urine Color YELLOW Urine Turbidity CLEAR Urine pH 7.0 Urine Specific [place] 1.021 Urine Protein NEG Urine Glucose (UA) 100 Urine Ketones NEG Urine Occult Blood NEG Urine Nitrite NEG Urine Bilirubin NEG Urine Leukocyte Esterase NEG Urine WBC 0-2 Microscopic Urinalysis Comment CULT NOT INDICATED Lactic Acid Level 2.1 Date/Time Procedure Status Source Growth 01/27/17 13:35 Aerobic Blood Culture Received Blood Peripheral Pending 01/27/17 13:35 Anaerobic Blood Culture Received Blood Peripheral Pending Result Diagram: 01/27/17 1255 01/27/17 1255 Imaging Last [address] 01/27/17 1254 Signed Impressions: Service Date/Time: Friday, January 27, 2017 14:20 - CONCLUSION: 1. Chronic sinusitis. 2. Otherwise negative. Raúl Winter MD Aorta CTA 01/27/17 0000 Signed Impressions: Service Date/Time: Friday, January 27, 2017 14:28 - CONCLUSION: No acute vascular findings in the chest, abdomen or pelvis. Patchy nodular parenchymal lung infiltrates, most notably in the right lung with some new areas of infiltrate in the right medial retrohilar region. Continued followup recommended versus additional short-term evaluation with PET/CT. Stable small cystic pancreatic mass. 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 Recurrent pneumonia Suspect HCAP due to recent hospitalization for pneumonia Severe sepsis with tachycardia, fever 102.8, leukocytosis and lactic acidosis - Suspected healthcare associated - CTA was obtained showing patchy nodular parenchymal lung infiltrates, most notably in the right lung with some new areas of infiltrate in the right medial retro hilar region. - IV antibiotics consisting of Zosyn, Levaquin and vancomycin - repeat lactic acid in am - IVF - Consult patients pulmonary physician Dr. Meehan who is known to his service - Supplemental oxygen - DuoNeb scheduled - IV Solu-Medrol 40 mg every 8 - Given patient's history of recurrent pneumonia, he may require a bronchoscopy to r/o underlying malignancy Lactic acidosis - Continue fluid - monitor level in a.m. COPD - Resume home bronchodilator - Supplemental oxygen as above Diabetes mellitus - Hold metformin for now due to recent contrast - Accu-Cheks - Insulin sliding scale - diabetic diet REGIS - Patiently currently undergoing outpatient workup with Dr. Meehan Hypothyroidism - Resume home levothyroxine dose Neuropathy - Resume home gabapentin BPH - Resume home Flomax DVT prophylaxis - Heparin sq Written by Aracely Paulino PA-C acting as scribe for Dr. Welch on 01/27/17 at 18:29. Discussed Condition With Patient in ED physician Physician Certification 2 Midnight Certification Type: Admission for Inpatient Services Order for Inpatient Services The services are ordered in accordance with Medicare regulations or non- Medicare payer requirements, as applicable. In the case of services not specified as inpatient-only, they are appropriately provided as inpatient services in accordance with the 2-midnight benchmark. Estimated LOS (days): 3 days is the estimated time the patient will need to remain in the hospital, assuming treatment plan goals are met and no additional complications. Post-Hospital Plan: Not yet determined Aracely Paulino Jan 27, 2017 19:09 Tona Welch MD Jan 28, 2017 10:53
[2017-01-27] MEDS ORDERED: DEXTROSE 50% IN WATER 50 ML VIAL(D50) IV PUSH PRN (19:15)
[2017-01-27] MEDS ORDERED: GLUCAGON 1 MG/ML VIAL OTHER PRN (19:15)
[2017-01-27] MEDS: RESP: ALBUTEROL 2.5 MG/IPRATROPIUM 0.5 MG NEB (SCH) NEB (19:36)
[2017-01-27] MEDS: SODIUM CHLOR 0.9% 1000 ML INJ 1,000 ML IV SCH (19:45)
[2017-01-27] MEDS: HEPARIN SODIUM - SQ 10,000 UNITS/ML VIAL SQ SCH (20:28)
[2017-01-27] MEDS: INSULIN ASPART SUPPLEMENTAL SCALE SQ SCH (20:28)
[2017-01-27] MEDS: methylPREDNISolone SOD SUCC 40 MG/1 ML VIAL IV SCH (20:28)
[2017-01-27] MEDS: FAMOTIDINE 20 MG TAB PO SCH (20:29)
[2017-01-27] MEDS: MONTELUKAST SODIUM 10 MG TAB PO SCH (20:29)
[2017-01-27] MEDS: GABAPENTIN 300 MG CAP PO SCH (20:29)
[2017-01-27] MEDS: PRAVASTATIN SOD 80 MG TAB PO SCH (20:29)
[2017-01-27] MEDS: SODIUM CHLORIDE FLUSH BID IVF SCH (20:29)
[2017-01-27] MEDS: PROPRANOLOL HCL 10 MG TAB PO SCH (20:29)
[2017-01-27] MEDS: TAMSULOSIN HCL 0.4 MG CAP PO SCH (20:29)
[2017-01-27] MEDS: VANCOMYCIN INJ 1,250 MG in SODIUM CHLOR 0.9% 250 ML INJ 250 ML IV SCH (20:30)
[2017-01-27] MEDS: PIPERACIL-TAZO 4.5 GM PREMIX 100 ML IV SCH (20:30)
[2017-01-27] MEDS: BUDESONIDE-FORMOTEROL 160/4.5 MCG INHALER INH SCH (21:00)
[2017-01-27] MEDS ORDERED: metFORMIN HCL 500 MG TAB PO SCH (21:00)
[2017-01-27] MEDS ORDERED: diphenhydrAMINE HCL 25 MG CAP PO ONE (22:45)
[2017-01-28] VITALS (9 sets, daily range): BP systolic 111–150; BP diastolic 71–81; PULSE 86–103; RESP 18–20; TEMP 98.2–100.3; O2SAT 92–97
[2017-01-28] MEDS: PIPERACIL-TAZO 4.5 GM PREMIX 100 ML IV SCH ×4 (03:49→22:31)
[2017-01-28] MEDS: HEPARIN SODIUM - SQ 10,000 UNITS/ML VIAL SQ SCH ×3 (05:24→22:30)
[2017-01-28] MEDS: INSULIN ASPART SUPPLEMENTAL SCALE SQ SCH ×4 (05:24→21:00)
[2017-01-28] MEDS: LEVOTHYROXINE SODIUM 88 MCG TAB PO SCH (05:24)
[2017-01-28] MEDS: methylPREDNISolone SOD SUCC 40 MG/1 ML VIAL IV SCH ×3 (05:24→22:29)
[2017-01-28 06:55] LABS: POTASSIUM 3.6 MEQ/L (3.5-5.1)
[2017-01-28 06:57] LABS: AUTOMATED NEUTROPHIL # 8.6 TH/MM3 (1.8-7.7); BASOPHIL % 0.2 % (0.0-2.0); EOSINOPHIL # 0.2 TH/MM3 (0-0.4); EOSINOPHIL % 1.6 % (0.0-4.0); HEMATOCRIT 31.9 % (39.0-51.0); LYMPH % 12.4 % (9.0-44.0); LYMPHOCYTE # 1.3 TH/MM3 (1.0-4.8); MEAN CELL VOLUME 91.5 FL (80.0-100.0); MEAN CORPUSCULAR HEMOGLOBIN 30.5 PG (27.0-34.0); MEAN CORPUSCULAR HGB CONC 33.3 % (32.0-36.0); MONO % 6.3 % (0.0-8.0); NEUT % 79.5 % (16.0-70.0); PLATELET COUNT 167 TH/MM3 (150-450); RED BLOOD COUNT 3.48 MIL/MM3 (4.50-5.90); RED CELL DISTRIBUTION WIDTH 12.5 % (11.6-17.2); WHITE BLOOD COUNT 10.8 TH/MM3 (4.0-11.0)
[2017-01-28 06:58] LABS: BICARBONATE 27.4 MEQ/L (21.0-32.0)
[2017-01-28 07:05] LABS: HEMO FLAGS DIFF FINAL
[2017-01-28] MEDS: SODIUM CHLOR 0.9% 1000 ML INJ 1,000 ML IV SCH ×2 (07:31→20:23)
[2017-01-28] MEDS: RESP: ALBUTEROL 2.5 MG/IPRATROPIUM 0.5 MG NEB (SCH) NEB ×4 (07:38→19:37)
[2017-01-28] MEDS: SODIUM CHLORIDE FLUSH BID IVF SCH ×2 (09:00→21:00)
[2017-01-28] MEDS ORDERED: metFORMIN HCL 500 MG TAB PO SCH (09:00)
[2017-01-28] MEDS: PROPRANOLOL HCL 10 MG TAB PO SCH ×2 (09:00→21:00)
[2017-01-28] MEDS: TIOTROPIUM BROMIDE 18 MCG INH INH SCH (09:30)
[2017-01-28] MEDS: BUDESONIDE-FORMOTEROL 160/4.5 MCG INHALER INH SCH ×2 (09:30→22:11)
[2017-01-28] MEDS: VANCOMYCIN INJ 1,250 MG in SODIUM CHLOR 0.9% 250 ML INJ 250 ML IV SCH ×2 (09:31→20:23)
[2017-01-28] MEDS: busPIRone HCL 5 MG TAB PO SCH (09:34)
[2017-01-28] MEDS: PANTOPRAZOLE SOD 40 MG DELAYED RELEASE TAB PO SCH (09:34)
[2017-01-28] MEDS: FERROUS SULFATE 325 MG (65 MG ELEMENTAL IRON) TAB PO SCH (09:34)
[2017-01-28] MEDS: PRIMIDONE 250 MG TAB PO SCH ×3 (09:34→17:11)
[2017-01-28] MEDS: POTASSIUM CHLORIDE 20 MEQ CONTROLLED RELEASE TAB PO SCH (09:34)
[2017-01-28] MEDS: TAMSULOSIN HCL 0.4 MG CAP PO SCH ×2 (09:34→22:25)
[2017-01-28] MEDS: FAMOTIDINE 20 MG TAB PO SCH ×2 (09:34→22:25)
[2017-01-28] MEDS: MULTIVITAMINS/MINERALS THERAPEUTIC TAB PO SCH (09:34)
[2017-01-28] MEDS: FUROSEMIDE 40 MG TAB PO SCH (09:34)
[2017-01-28] MEDS: ASCORBIC ACID 500 MG TAB PO SCH (09:34)
[2017-01-28] MEDS: LORATADINE 10 MG TAB PO SCH (09:35)
--- NOTE | 2017-01-28 11:17 | EKG ---
Date Performed: 01/27/2017 Time Performed: 12:35:00 PTAGE: 71 years EKG: Sinus tachycardia Indeterminate axis Right bundle branch block Low QRS voltages in precordi al leads Abnormal ECG PREVIOUS TRACING : 12/31/2016 17.19 DOCTOR: Jayant Hopson Interpretating Date/Time 01/28/2017 11:15:22
--- NOTE | 2017-01-28 14:48 | HHI.PR ---
Subjective Remarks Follow up on recurrent pneumonia possible H CAP Patient cough is getting worse today with greenish phlegm He had a fever of 100.3 Positive headache worsened with a cough Objective Vitals Vital Signs Date Time Temp Pulse Resp B/P Pulse Ox O2 Delivery O2 Flow Rate FiO2 01/28/17 12:00 98.2 89 18 118/71 97 01/28/17 08:00 100.3 97 18 127/79 95 01/28/17 07:39 92 21 01/28/17 04:00 99.2 95 20 150/80 97 01/28/17 00:00 100.3 100 20 111/74 95 01/27/17 21:52 98 01/27/17 20:00 98.7 100 20 108/70 94 01/27/17 19:38 92 01/27/17 18:15 98.0 101 18 122/85 94 01/27/17 16:53 102 20 135/72 94 01/27/17 15:43 100.1 95 20 125/67 93 01/27/17 14:46 105 20 138/76 97 I/O 01/27/17 01/27/17 01/27/17 01/28/17 01/28/17 01/28/17 07:00 15:00 23:00 07:00 15:00 23:00 Intake Total 480 ml 1044 ml Output Total 525 ml Balance 480 ml 519 ml Intake Oral 480 ml 60 ml IV Total 984 ml Output Urine Total 525 ml # Voids 2 1 # Bowel Movements 0 0 Result Diagram: 01/28/17 0540 01/28/17 0540 Imaging Last Impressions Head CT 01/27/17 1254 Signed Impressions: Service Date/Time: Friday, January 27, 2017 14:20 - CONCLUSION: 1. Chronic sinusitis. 2. Otherwise negative. Raúl Winter MD Aorta CTA 01/27/17 0000 Signed Impressions: Service Date/Time: Friday, January 27, 2017 14:28 - CONCLUSION: No acute vascular findings in the chest, abdomen or pelvis. Patchy nodular parenchymal lung infiltrates, most notably in the right lung with some new areas of infiltrate in the right medial retrohilar region. Continued followup recommended versus additional short-term evaluation with PET/CT. Stable small cystic pancreatic mass. Delio Lees MD Objective Remarks GENERAL: This is a well-nourished, well-developed patient, in no apparent distress. SKIN: No rashes, ecchymoses or lesions. Warm and dry. HEAD: Atraumatic. Normocephalic. No temporal or scalp tenderness. EYES: Pupils equal round and reactive. Extraocular motions intact. No scleral icterus. No injection or drainage. ENT: Nose without bleeding, purulent drainage or septal hematoma. Throat without erythema, tonsillar hypertrophy or exudate. Uvula midline. Airway patent. NECK: Trachea midline. No JVD or lymphadenopathy. Supple, nontender, no meningeal signs. CARDIOVASCULAR: Regular rate and rhythm without murmurs, gallops, or rubs. RESPIRATORY: Diminished breath sounds with positive crackles right greater than left. Bilateral diffuse expiratory wheezing. GASTROINTESTINAL: Abdomen soft, non-tender, nondistended. No hepato- splenomegaly. No guarding. (+) Abdominal hernia. MUSCULOSKELETAL: Extremities without clubbing, cyanosis, or edema. No joint tenderness, effusion, or edema noted. No calf tenderness. 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 Recurrent pneumonia Suspect HCAP considering recent hospitalization for pneumonia Severe sepsis with tachycardia, fever 102.8, leukocytosis and lactic acidosis - Suspected healthcare associated - CTA was obtained showing patchy nodular parenchymal lung infiltrates, most notably in the right lung with some new areas of infiltrate in the right medial retro hilar region. - IV antibiotics consisting of Zosyn, Levaquin and vancomycin -Sputum culture, urine antigen for Legionella and pneumococcus is pending - Consult patients pulmonary physician Dr. Meehan who is known to his service - Supplemental oxygen - DuoNeb scheduled - IV Solu-Medrol 40 mg every 8 - Given patient's history of recurrent pneumonia, he may require a bronchoscopy to r/o underlying malignancy Lactic acidosis>> resolved - DC iv fluid - Encourage oral intake COPD mostly worsened with a pneumonia -DuoNeb, O2, Solu-Medrol Diabetes mellitus - Hold metformin for now due to recent contrast - Accu-Cheks - Insulin sliding scale - diabetic diet REGIS - Patiently currently undergoing outpatient workup with Dr. Meehan Hypothyroidism - Resume home levothyroxine dose Neuropathy - Resume home gabapentin BPH - Resume home Flomax DVT prophylaxis - Heparin sq Tona Welch MD Jan 28, 2017 14:48 Tona Welch MD Jan 28, 2017 14:48
[2017-01-28] MEDS: ACETAMINOPHEN 325 MG TAB PO PRN (15:59)
[2017-01-28] MEDS: BENZONATATE 100 MG CAP PO PRN (16:41)
[2017-01-28] MEDS: LEVOFLOXACIN 750 MG PREMIX INJ 150 ML IV SCH (17:11)
[2017-01-28 18:51] LABS: BLOOD GAS BASE EXCESS -1.4 mmol/L (-2-2); BLOOD GAS CARBOXYHEMOGLOBIN 2.1 % (0-4); BLOOD GAS HCO3 22 mmol/L (22-26); BLOOD GAS METHEMOGLOBIN 1.4 % (0-2); BLOOD GAS O2 HGB SATURATION 93 % (90-100); BLOOD GAS OXYGEN CONTENT 13.9 Vol % (12.0-20.0); BLOOD GAS PCO2 33 mmHG (38-42); BLOOD GAS PO2 83 mmHG (61-120); BLOOD GAS TOTAL HGB 10.5 G/DL (12.0-16.0); TEMP CORR TO 98.6
[2017-01-28 18:52] LABS: CRITICAL VALUE NO; DRAW SITE RT RADIAL; FIO2 21 %; NUMBER OF ARTERIAL PUNCTURES 1; OXYGEN DEVICE ROOM AIR; STAT NO; ULNAR PULSE PRESENT
[2017-01-28] MEDS: MONTELUKAST SODIUM 10 MG TAB PO SCH (21:00)
[2017-01-28] MEDS: GABAPENTIN 300 MG CAP PO SCH (22:16)
[2017-01-28] MEDS: PRAVASTATIN SOD 80 MG TAB PO SCH (22:24)
--- NOTE | 2017-01-28 23:32 | MB ---
cc: KATIE MARCUM DATE OF CONSULTATION: 01/28/2017 REASON FOR CONSULTATION: Pneumonia. HISTORY OF PRESENT ILLNESS: This is a 71-year-old white male who was initially admitted through the emergency room with complaints of extreme weakness, unsteadiness on his feet, shortness of breath, cough, and low grade fever. The patient had a prior history of COPD and has been treated for aspergillosis and has had a previous thoracotomy and the right with partial resection and has had a history of diabetes mellitus, hypothyroidism, abdominal aortic aneurysm, history of peripheral neuropathy. He was treated for an episode of pneumonia a month ago. During this admission he developed rather sudden episode of dizziness and extreme weakness, and inability to walk, and also complained of headache in the frontal area, as well as shortness of breath. The patient was running a temperature of 102 degrees. On arrival in the ER, temperature was 102.8. He had a CTA of the chest which showed nodular patchy pulmonary infiltreates, most notable in the right lung and some in the left lower lung as well. White count is elevated. The patient recently had a pulmonary function study and was also scheduled to have a sleep study later this month. Following admission, however, he was given IV hydration, oxygen via nasal cannula and bronchodilators and subsequently admitted. He is now feeling much better. He is able to take his diet and his O2 saturations on 3 liters of oxygen, over 95%. PAST HISTORY 1. Diabetes mellitus. 2. History of anemia of chronic disease. 3. History of prostatic hypertrophy 4. Hypothyroidism. 5. History of abdominal aortic aneurysm. 6. Remote history of pulmonary tuberculosis treated. 7. Cholecystectomy. 8. Bilateral cataract surgery. 9. Blepharoplasty. 10. Thoracotomy with partial lung resection on the right. 11. Tonsillectomy remotely. 12. Ulnar surgery. ALLERGIES Valium, Keflex, Demerol MEDICATIONS: 1. Tamsulosin 0.4 milligrams daily. 2. Prevacid 30 milligrams a day. 4. BuSpar 5 milligrams p.r.n. 5. Nasacort nasal spray. 6. Metformin 500 milligrams q hs. 7. Gabapentin 300 milligrams daily. 8. Claritin 10 milligrams a day. 9. Combivent Respimat one puff q.i.d. 10. Singulair 10 milligrams daily. 11. Naprosyn 500 milligrams b.i.d. 12. Lasix 20 milligrams daily. 13. Potassium 10 milliequivalents daily. 14. Primidone 250 milligrams t.i.d. 15. Spiriva one capsule a day. 16. Advair Diskus 500/50 one puff b.i.d. FAMILY HISTORY Father of tuberculosis and one sister with coronary artery disease and non-Hodgkin's lymphoma. REVIEW OF SYSTEMS The patient is overweight. He has history for snoring. He is short of breath. He has reflux and epigastric distress. He does have urinary frequency and hesitancy. He has arthritis of the extremities and he has had mild leg swelling. He also has anxiety and depression. PHYSICAL EXAMINATION This obese elderly man is sitting upright in no acute distress. He is on oxygen. VITAL SIGNS: Blood pressure 130/60, pulse is 92, respirations 22, temperature 98.5. HEENT: Head normocephalic. Pupils reactive. Throat is mildly injected. Ears no inflammation. Neck: Supple. No lymphadenopathy. Trachea midline. Chest: Equal movements with percussion note resonant throughout. Occasional crackles over the right lung santizo with wheezes anteriorly. Heart: The heart sounds are regular, S1-S2. No murmur. No S3. Abdomen: Soft, protuberant without masses or organomegaly. Extremities: 1+ edema. Mild varicosities. Neurologic: Reflexes 1+, no gross motor deficits. Cranial nerves grossly intact. Rectal: Exam is deferred. Skin: No lesions. IMPRESSION 1. Right lung pneumonia with bronchiectasis. 2. Chronic obstructive pulmonary disease and chronic bronchitis. 3. History of aspergillosis. 4. Possible obstructive sleep apnea syndrome. 5. Diabetes mellitus type 2 6. Peripheral neuropathy. PLAN The patient will be maintained on O2 at 2-1/2 liters nasal cannula. He will continue with antibiotic coverage for sepsis and pneumonia. Sputum will be sent for Gram stain, culture. Blood cultures are pending. Nebulized DuoNeb solution added q.i.d. and Solu-Medrol 40 milligrams IV every 12 hours. The patient will be placed on Symbicort 160/4.5 two puffs twice a day. A copy of his pulmonary function studies will be requested. Follow up chest x-ray to be done this week as well as the [facility]. Thank you for this consultation. MD JOSÉ MIGUEL Diallo/JUAN /10:31 PM /11:10 PM
[2017-01-29] VITALS (7 sets, daily range): BP systolic 104–152; BP diastolic 69–89; PULSE 69–77; RESP 14–18; TEMP 96.1–97.7; O2SAT 93–98
[2017-01-29] MEDS: BENZONATATE 100 MG CAP PO PRN ×2 (01:10→22:04)
[2017-01-29] MEDS ORDERED: diphenhydrAMINE HCL 25 MG CAP PO PRN (01:15)
[2017-01-29] MEDS: PIPERACIL-TAZO 4.5 GM PREMIX 100 ML IV SCH ×4 (03:55→21:46)
[2017-01-29] MEDS: HEPARIN SODIUM - SQ 10,000 UNITS/ML VIAL SQ SCH ×3 (05:36→21:49)
[2017-01-29] MEDS: methylPREDNISolone SOD SUCC 40 MG/1 ML VIAL IV SCH ×3 (05:36→21:47)
[2017-01-29] MEDS: LEVOTHYROXINE SODIUM 88 MCG TAB PO SCH (05:36)
[2017-01-29] MEDS: INSULIN ASPART SUPPLEMENTAL SCALE SQ SCH ×4 (05:36→21:00)
--- NOTE | 2017-01-29 05:44 | RADHPO ---
EXAM DATE/TIME: 01/29/2017 05:12 [place] COMPARISON: CHEST SINGLE AP, December 29, 2016, 14:09. INDICATIONS : Shortness of breath MEDICAL HISTORY : Chronic obstructive pulmonary disease. Aneurysm, abdominal. Diabetes. SURGICAL HISTORY : None. ENCOUNTER: Subsequent ACUITY: 2 days PAIN SCORE: 0/10 LOCATION: Bilateral chest FINDINGS: A single view of the chest demonstrates the lungs to be symmetrically aerated without evidence of mas s, infiltrate or effusion. The cardiomediastinal contours are unremarkable. Osseous structures are intact. CONCLUSION: No acute disease. Ayush Shea MD on January 29, 2017 at 5:42 Board Certified Radiologist. This report was verified electronically.
[2017-01-29] MEDS: RESP: ALBUTEROL 2.5 MG/IPRATROPIUM 0.5 MG NEB (SCH) NEB ×4 (07:34→19:41)
[2017-01-29] MEDS ORDERED: PHARMACY ORDERED LAB XX ONE (07:45)
[2017-01-29] MEDS: BUDESONIDE-FORMOTEROL 160/4.5 MCG INHALER INH SCH ×2 (08:21→21:47)
[2017-01-29] MEDS: TIOTROPIUM BROMIDE 18 MCG INH INH SCH (08:22)
[2017-01-29] MEDS: SODIUM CHLOR 0.9% 1000 ML INJ 1,000 ML IV SCH ×2 (08:23→17:36)
[2017-01-29] MEDS: SODIUM CHLORIDE FLUSH BID IVF SCH ×2 (08:24→21:47)
[2017-01-29] MEDS: VANCOMYCIN INJ 1,250 MG in SODIUM CHLOR 0.9% 250 ML INJ 250 ML IV SCH (08:24)
[2017-01-29] MEDS: FERROUS SULFATE 325 MG (65 MG ELEMENTAL IRON) TAB PO SCH (08:28)
[2017-01-29] MEDS: ASCORBIC ACID 500 MG TAB PO SCH (08:28)
[2017-01-29] MEDS: POTASSIUM CHLORIDE 20 MEQ CONTROLLED RELEASE TAB PO SCH (08:29)
[2017-01-29] MEDS: busPIRone HCL 5 MG TAB PO SCH (08:29)
[2017-01-29] MEDS: FUROSEMIDE 40 MG TAB PO SCH (08:29)
[2017-01-29] MEDS: PANTOPRAZOLE SOD 40 MG DELAYED RELEASE TAB PO SCH (08:29)
[2017-01-29] MEDS: PRIMIDONE 250 MG TAB PO SCH ×3 (08:30→17:36)
[2017-01-29] MEDS: TAMSULOSIN HCL 0.4 MG CAP PO SCH ×2 (08:32→21:48)
[2017-01-29] MEDS: PROPRANOLOL HCL 10 MG TAB PO SCH ×2 (08:32→21:48)
[2017-01-29] MEDS: LORATADINE 10 MG TAB PO SCH (08:32)
[2017-01-29] MEDS: FAMOTIDINE 20 MG TAB PO SCH ×2 (08:32→21:48)
[2017-01-29] MEDS: MULTIVITAMINS/MINERALS THERAPEUTIC TAB PO SCH (08:33)
[2017-01-29] MEDS: LEVOFLOXACIN 750 MG PREMIX INJ 150 ML IV SCH (17:34)
--- NOTE | 2017-01-29 19:30 | HHI.PR ---
Subjective Remarks Follow-up on patient with recurrent pneumonia, likely HCAP. Patient reports he feels a little bit better today. However, he still has significant cough and does report a single episode of some blood-tinged sputum that he coughed up earlier. He did receive Tessalon Perles last night which helped. Still has been unable to sleep and is requesting Benadryl if possible. Patient denies any complaints of shortness of breath or chest pain at this time. Objective Vitals Vital Signs Date Time Temp Pulse Resp B/P Pulse Ox O2 Delivery O2 Flow Rate FiO2 01/29/17 18:19 96.1 71 15 122/81 97 01/29/17 14:48 97.7 77 16 104/73 93 01/29/17 10:24 97.7 77 14 112/70 95 01/29/17 07:36 95 21 01/29/17 04:00 97.4 69 18 114/69 96 01/28/17 20:30 103 01/28/17 20:00 98.5 86 18 123/76 93 01/28/17 19:35 95 21 I/O 01/28/17 01/28/17 01/28/17 01/29/17 01/29/17 01/29/17 07:00 15:00 23:00 07:00 15:00 23:00 Intake Total 1044 ml 750 ml 890 ml 1460 ml 1153 ml Output Total 525 ml 400 ml 950 ml Balance 519 ml 750 ml 490 ml 510 ml 1153 ml Intake Oral 60 ml 750 ml 890 ml 360 ml IV Total 984 ml 1100 ml 1153 ml Output Urine Total 525 ml 400 ml 950 ml # Voids 1 4 6 # Bowel Movements 0 0 0 1 Result Diagram: 01/28/17 0540 01/28/17 0540 Objective Remarks GENERAL: This is a well-nourished, well-developed patient, in no apparent distress. Sitting up in bedside chair. Appears comfortable. is at the bedside SKIN: No rashes, ecchymoses or lesions. Warm and dry. HEAD: Atraumatic. Normocephalic. EYES: EOMI CARDIOVASCULAR: Regular rate and rhythm without murmurs, gallops, or rubs. RESPIRATORY: Diminished breath sounds with few crackles right greater than left , mostly bibasilar. GASTROINTESTINAL: Abdomen soft, non-tender, nondistended. No hepato- splenomegaly. No guarding. (+) Abdominal hernia. MUSCULOSKELETAL: Extremities without clubbing, cyanosis, or edema. No joint tenderness, effusion, or edema noted. No calf tenderness. NEUROLOGICAL: Awake alert oriented. Moves all extremities. No focal neurological deficit Medications and IVs Current Medications Medications (Trade) Dose Ordered Sig/Riaz Route Start Time Stop Time Status Last Admin Sodium Chloride 2 ml 2 ml UNSCH PRN IVF 01/27/17 12:45 Piperacillin Sod/ Tazobactam Sod 100 ml @ 200 mls/hr Q6H IV 01/27/17 21:00 01/29/17 15:09 Pharmacy Profile Note 0 ml @ 0 mls/hr UNSCH XX 01/27/17 17:00 (Levaquin 750 Mg Premix Inj) 150 ml @ 100 mls/hr Q24H IV 01/27/17 18:00 01/29/17 17:34 (Tylenol) 650 mg Q4H PRN PO 01/27/17 17:00 (Zofran Inj) 4 mg Q6H PRN IVP 01/27/17 17:00 (Heparin Inj) 5,000 units Q8HR SQ 01/27/17 22:00 01/29/17 15:09 (Tylenol) 650 mg Q6H PRN PO 01/27/17 17:00 01/28/17 15:59 (NS Flush) 2 ml BID IVF 01/27/17 21:00 01/28/17 21:00 (SoluMEDROL INJ) 40 mg Q8HR IV 01/27/17 22:00 01/29/17 15:08 (Vitamin C) 2,000 mg DAILY PO 01/28/17 09:00 01/29/17 08:28 (Buspar) 5 mg DAILY PO 01/28/17 09:00 01/29/17 08:29 (Ferrous Sulfate) 325 mg DAILY PO 01/28/17 09:00 01/29/17 08:28 (Lasix) 20 mg DAILY PO 01/28/17 09:00 01/29/17 08:29 (Neurontin) 300 mg HS PO 01/27/17 21:00 01/28/17 22:16 (Synthroid) 88 mcg DAILY@06 PO 01/28/17 06:00 01/29/17 05:36 (Claritin) 10 mg DAILY PO 01/28/17 09:00 01/29/17 08:32 (Singulair) 10 mg HS PO 01/27/17 21:00 01/28/17 21:00 (Theragran M Tab) 1 tab DAILY PO 01/28/17 09:00 01/29/17 08:33 (KCl) 20 meq DAILY PO 01/28/17 09:00 01/29/17 08:29 (Mysoline) 250 mg TID PO 01/28/17 09:00 01/29/17 17:36 (Inderal) 10 mg Q12HR PO 01/27/17 21:00 01/29/17 08:32 (Flomax) 0.4 mg BID PO 01/27/17 21:00 01/29/17 08:32 (Spiriva Inh) 18 mcg DAILY INH 01/28/17 09:00 01/29/17 08:22 Patient Own Medication PT OWN MED: (Dulaglutide ... Q7D SQ 02/02/17 09:00 Future Hold (Symbicort 160-4.5 Inh) 2 puff BID INH 01/27/17 21:00 01/29/17 08:21 (Protonix) 40 mg DAILY PO 01/28/17 09:00 01/29/17 08:29 (Pepcid) 20 mg BID PO 01/27/17 21:00 01/29/17 08:32 (Pravachol) 80 mg HS PO 01/27/17 21:00 01/28/17 22:24 (D50w (Vial) Inj) 25 ml UNSCH PRN IV PUSH 01/27/17 19:15 Glucagon 1 mg 1 mg UNSCH PRN OTHER 01/27/17 19:15 (NS 1000 ml Inj) 1,000 ml @ 85 mls/hr [id number] IV 01/27/17 19:45 01/29/17 17:36 (Tessalon) 200 mg Q8H PRN PO 01/28/17 16:45 01/29/17 01:10 Diphenhydramine HCl 25 mg 25 mg HS PRN PO 01/29/17 01:15 01/29/17 01:19 (Vancomycin Inj/ NS 500 ml Inj) 513 ml @ 250 mls/hr Q12H IV 01/29/17 20:00 Miscellaneous Information SPECIFIC LAB TO BE DRAWN:VANCOMY... 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 Recurrent pneumonia Suspect HCAP considering recent hospitalization for pneumonia Severe sepsis with tachycardia, fever 102.8, leukocytosis and lactic acidosis - Suspected healthcare associated - CTA was obtained showing patchy nodular parenchymal lung infiltrates, most notably in the right lung with some new areas of infiltrate in the right medial retro hilar region. - Patient evaluated by Dr. Le, greatly appreciate his assistance, his assessment is right lung pneumonia with bronchiectasis, COPD and chronic bronchitis as well as possible REGIS. Patient started on Symbicort. - Continue with IV antibiotics consisting of Zosyn, Levaquin and vancomycin - Sputum culture states immature growth, re intubate - Urine antigen for Legionella and pneumococcus is negative - Supplemental oxygen - DuoNeb scheduled - IV Solu-Medrol 40 mg every 12 Lactic acidosis>> resolved - DC iv fluid - Encourage oral intake COPD mostly worsened with a pneumonia -DuoNeb, O2, Solu-Medrol Diabetes mellitus - Resume metformin - Accu-Cheks - Insulin sliding scale - diabetic diet REGIS - Patiently currently undergoing outpatient workup with Dr. Meehan Hypothyroidism - Continue home levothyroxine dose Neuropathy -Continue home gabapentin BPH -Continue home Flomax DVT prophylaxis - Heparin sq Written by Aracely Paulino PA-C acting as scribe for Dr. Heath on 01/29/17 at 19:19. All or portions of this note were transcribed by scribbuster Paulino PA-C. I, Dr. Tunde Heath personally performed the history, physical exam, and medical decision making; and confirmed the accuracy of the information in the transcribed note. Authenticated by Dr. Tunde Heath on 01/30/17 at 07:24. Aracely Paulino Jan 29, 2017 19:30 Tunde Heath MD Jan 30, 2017 07:24
--- NOTE | 2017-01-29 19:30 | HHI.PR ---
Subjective Remarks Looks better today. No fever. Still coughs up sputum. Wheezing at times. Objective Vital Signs Date Time Temp Pulse Resp B/P Pulse Ox O2 Delivery O2 Flow Rate FiO2 01/29/17 18:19 96.1 71 15 122/81 97 01/29/17 14:48 97.7 77 16 104/73 93 01/29/17 10:24 97.7 77 14 112/70 95 01/29/17 07:36 95 21 01/29/17 04:00 97.4 69 18 114/69 96 01/28/17 20:30 103 01/28/17 20:00 98.5 86 18 123/76 93 01/28/17 19:35 95 21 I/O 01/28/17 01/28/17 01/28/17 01/29/17 01/29/17 01/29/17 07:00 15:00 23:00 07:00 15:00 23:00 Intake Total 1044 ml 750 ml 890 ml 1460 ml 1153 ml Output Total 525 ml 400 ml 950 ml Balance 519 ml 750 ml 490 ml 510 ml 1153 ml Intake Oral 60 ml 750 ml 890 ml 360 ml IV Total 984 ml 1100 ml 1153 ml Output Urine Total 525 ml 400 ml 950 ml # Voids 1 4 6 # Bowel Movements 0 0 0 1 Result Diagram: 01/28/1740 01/28/17 0540 Objective Remarks This obese elderly man is sitting upright in no acute distress. HEENT: Head normocephalic. Pupils reactive. Throat is mildly clear. Ears no inflammation. Neck: Supple. No lymphadenopathy. Trachea midline. Chest: Equal movements with percussion note resonant throughout. Occasional crackles over the right lung santizo with wheezes anteriorly. Heart: The heart sounds are regular, S1-S2. No murmur. No S3. Abdomen: Soft, protuberant without masses or organomegaly. Extremities: 1+ edema. Mild varicosities. Neurologic: Reflexes 1+, no gross motor deficits. Cranial nerves grossly intact. Rectal: Exam is deferred. Skin: No lesions. Assessment and Plan Assessment and Plan IMPRESSION 1. Right lung pneumonia with bronchiectasis. 2. Chronic obstructive pulmonary disease and chronic bronchitis. 3. History of aspergillosis. 4. Possible obstructive sleep apnea syndrome. 5. Diabetes mellitus type 2 6. Peripheral neuropathy. Plan : 1. Cont Antibiotics. 2. Wean O2 to RA. 3. Nebs qid , duoneb. 4. Taper solumedrol to 40 mg bid. 5. Ambulate with help. 6. Symbicort 160/4.5 mcg , 2puffs bid Deepika Le MD Jan 29, 2017 19:30
[2017-01-29] MEDS: VANCOMYCIN INJ 1,300 MG in SODIUM CHLORID 0.9% 500 ML INJ 500 ML IV SCH (21:46)
[2017-01-29] MEDS: GABAPENTIN 300 MG CAP PO SCH (21:47)
[2017-01-29] MEDS: diphenhydrAMINE HCL 50 MG CAP PO PRN (21:48)
[2017-01-29] MEDS: PRAVASTATIN SOD 80 MG TAB PO SCH (21:48)
[2017-01-29] MEDS: MONTELUKAST SODIUM 10 MG TAB PO SCH (21:48)
[2017-01-29] MEDS: metFORMIN HCL 500 MG TAB PO SCH (21:48)
[2017-01-30] VITALS (8 sets, daily range): BP systolic 120–137; BP diastolic 75–86; PULSE 62–96; RESP 17–20; TEMP 96.4–97.8; O2SAT 94–98
[2017-01-30] MEDS: PIPERACIL-TAZO 4.5 GM PREMIX 100 ML IV SCH ×4 (02:03→21:59)
[2017-01-30] MEDS: HEPARIN SODIUM - SQ 10,000 UNITS/ML VIAL SQ SCH ×3 (06:04→22:00)
[2017-01-30] MEDS: metFORMIN HCL 500 MG TAB PO SCH ×2 (06:04→22:01)
[2017-01-30] MEDS: SODIUM CHLOR 0.9% 1000 ML INJ 1,000 ML IV SCH ×2 (06:04→09:26)
[2017-01-30] MEDS: LEVOTHYROXINE SODIUM 88 MCG TAB PO SCH (06:04)
[2017-01-30] MEDS: INSULIN ASPART SUPPLEMENTAL SCALE SQ SCH ×4 (06:07→21:00)
[2017-01-30] MEDS: RESP: ALBUTEROL 2.5 MG/IPRATROPIUM 0.5 MG NEB (SCH) NEB ×4 (07:35→19:40)
[2017-01-30] MEDS: SODIUM CHLORIDE FLUSH BID IVF SCH ×2 (09:00→21:00)
[2017-01-30] MEDS: PROPRANOLOL HCL 10 MG TAB PO SCH ×2 (09:00→21:00)
[2017-01-30] MEDS: BUDESONIDE-FORMOTEROL 160/4.5 MCG INHALER INH SCH ×2 (09:17→22:02)
[2017-01-30] MEDS: TAMSULOSIN HCL 0.4 MG CAP PO SCH ×2 (09:18→22:01)
[2017-01-30] MEDS: ASCORBIC ACID 500 MG TAB PO SCH (09:18)
[2017-01-30] MEDS: PANTOPRAZOLE SOD 40 MG DELAYED RELEASE TAB PO SCH (09:18)
[2017-01-30] MEDS: PRIMIDONE 250 MG TAB PO SCH ×3 (09:18→16:27)
[2017-01-30] MEDS: POTASSIUM CHLORIDE 20 MEQ CONTROLLED RELEASE TAB PO SCH (09:19)
[2017-01-30] MEDS: FUROSEMIDE 40 MG TAB PO SCH (09:19)
[2017-01-30] MEDS: busPIRone HCL 5 MG TAB PO SCH (09:19)
[2017-01-30] MEDS: FERROUS SULFATE 325 MG (65 MG ELEMENTAL IRON) TAB PO SCH (09:21)
[2017-01-30] MEDS: LORATADINE 10 MG TAB PO SCH (09:21)
[2017-01-30] MEDS: MULTIVITAMINS/MINERALS THERAPEUTIC TAB PO SCH (09:21)
[2017-01-30] MEDS: methylPREDNISolone SOD SUCC 40 MG/1 ML VIAL IV SCH ×2 (09:23→22:00)
[2017-01-30] MEDS: FAMOTIDINE 20 MG TAB PO SCH ×2 (09:23→22:01)
[2017-01-30] MEDS: TIOTROPIUM BROMIDE 18 MCG INH INH SCH (09:29)
[2017-01-30] MEDS: VANCOMYCIN INJ 1,300 MG in SODIUM CHLORID 0.9% 500 ML INJ 500 ML IV SCH ×2 (09:30→21:59)
--- NOTE | 2017-01-30 12:13 | HHI.PR ---
Subjective Remarks Follow-up on patient with recurrent pneumonia likely HCAP. Patient states he feels improved today. States he slept extremely well last night. Having much less cough. No episodes of blood-tinged sputum today. Afebrile. Denies any complaints of chest pain or shortness of breath. Objective Vitals Vital Signs Date Time Temp Pulse Resp B/P Pulse Ox O2 Delivery O2 Flow Rate FiO2 01/30/17 08:00 97.6 62 17 126/76 96 01/30/17 07:36 95 21 01/30/17 04:00 97.1 80 18 130/86 95 01/30/17 04:00 Room Air 01/30/17 00:00 97.8 82 18 127/83 94 01/30/17 00:00 Room Air 01/29/17 20:00 Room Air 01/29/17 20:00 96.7 74 18 152/89 98 01/29/17 19:42 98 21 01/29/17 18:19 96.1 71 15 122/81 97 01/29/17 14:48 97.7 77 16 104/73 93 I/O 01/29/17 01/29/17 01/29/17 01/30/17 01/30/17 01/30/17 07:00 15:00 23:00 07:00 15:00 23:00 Intake Total 1460 ml 1487 ml 1185 ml Output Total 950 ml 250 ml 1703 ml Balance 510 ml 1237 ml -518 ml Intake Oral 360 ml 240 ml IV Total 1100 ml 1487 ml 945 ml Output Urine Total 950 ml 250 ml 1703 ml # Voids 6 # Bowel Movements 0 1 1 Result Diagram: 01/28/17 0540 01/30/17 0530 Objective Remarks GENERAL: This is a well-nourished, well-developed patient, in no apparent distress. Sitting up in bedside chair. Appears comfortable. is at the bedside SKIN: No rashes, ecchymoses or lesions. Warm and dry. HEAD: Atraumatic. Normocephalic. EYES: EOMI CARDIOVASCULAR: Regular rate and rhythm without murmurs, gallops, or rubs. RESPIRATORY: Diminished breath sounds with few scattered crackles right greater than left, mostly bibasilar. GASTROINTESTINAL: Abdomen soft, non-tender, nondistended. No hepato- splenomegaly. No guarding. (+) Abdominal hernia. MUSCULOSKELETAL: Extremities without clubbing, cyanosis, or edema. No joint tenderness, effusion, or edema noted. No calf tenderness. NEUROLOGICAL: Awake alert oriented. Moves all extremities. No focal neurological deficit. Medications and IVs Current Medications Medications (Trade) Dose Ordered Sig/Riaz Route Start Time Stop Time Status Last Admin Sodium Chloride 2 ml 2 ml UNSCH PRN IVF 01/27/17 12:45 Piperacillin Sod/ Tazobactam Sod 100 ml @ 200 mls/hr Q6H IV 01/27/17 21:00 01/30/17 15:26 Pharmacy Profile Note 0 ml @ 0 mls/hr UNSCH XX 01/27/17 17:00 (Levaquin 750 Mg Premix Inj) 150 ml @ 100 mls/hr Q24H IV 01/27/17 18:00 01/29/17 17:34 (Tylenol) 650 mg Q4H PRN PO 01/27/17 17:00 (Zofran Inj) 4 mg Q6H PRN IVP 01/27/17 17:00 (Heparin Inj) 5,000 units Q8HR SQ 01/27/17 22:00 01/30/17 13:21 (Tylenol) 650 mg Q6H PRN PO 01/27/17 17:00 01/28/17 15:59 (NS Flush) 2 ml BID IVF 01/27/17 21:00 01/29/17 21:47 (Vitamin C) 2,000 mg DAILY PO 01/28/17 09:00 01/30/17 09:18 (Buspar) 5 mg DAILY PO 01/28/17 09:00 01/30/17 09:19 (Ferrous Sulfate) 325 mg DAILY PO 01/28/17 09:00 01/30/17 09:21 (Lasix) 20 mg DAILY PO 01/28/17 09:00 01/30/17 09:19 (Neurontin) 300 mg HS PO 01/27/17 21:00 01/29/17 21:47 (Synthroid) 88 mcg DAILY@06 PO 01/28/17 06:00 01/30/17 06:04 (Claritin) 10 mg DAILY PO 01/28/17 09:00 01/30/17 09:21 (Singulair) 10 mg HS PO 01/27/17 21:00 01/29/17 21:48 (Theragran M Tab) 1 tab DAILY PO 01/28/17 09:00 01/30/17 09:21 (KCl) 20 meq DAILY PO 01/28/17 09:00 01/30/17 09:19 (Mysoline) 250 mg TID PO 01/28/17 09:00 01/30/17 13:20 (Inderal) 10 mg Q12HR PO 01/27/17 21:00 01/30/17 09:00 (Flomax) 0.4 mg BID PO 01/27/17 21:00 01/30/17 09:18 (Spiriva Inh) 18 mcg DAILY INH 01/28/17 09:00 01/30/17 09:29 Patient Own Medication PT OWN MED: (Dulaglutide ... Q7D SQ 02/02/17 09:00 Future Hold (Symbicort 160-4.5 Inh) 2 puff BID INH 01/27/17 21:00 01/30/17 09:17 (Protonix) 40 mg DAILY PO 01/28/17 09:00 01/30/17 09:18 (Pepcid) 20 mg BID PO 01/27/17 21:00 01/30/17 09:23 (Pravachol) 80 mg HS PO 01/27/17 21:00 01/29/17 21:48 (D50w (Vial) Inj) 25 ml UNSCH PRN IV PUSH 01/27/17 19:15 Glucagon 1 mg 1 mg UNSCH PRN OTHER 01/27/17 19:15 (NS 1000 ml Inj) 1,000 ml @ 85 mls/hr [id number] IV 01/27/17 19:45 01/30/17 09:26 (Tessalon) 200 mg Q8H PRN PO 01/28/17 16:45 01/29/17 22:04 Diphenhydramine HCl 25 mg 25 mg HS PRN PO 01/29/17 01:15 01/29/17 01:19 (Vancomycin Inj/ NS 500 ml Inj) 513 ml @ 250 mls/hr Q12H IV 01/29/17 20:00 01/30/17 09:30 Miscellaneous Information SPECIFIC LAB TO BE DRAWN:VANCOMY... 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 Recurrent pneumonia Suspect HCAP considering recent hospitalization for pneumonia Severe sepsis with tachycardia, fever 102.8, leukocytosis and lactic acidosis - Suspected healthcare associated - CTA was obtained showing patchy nodular parenchymal lung infiltrates, most notably in the right lung with some new areas of infiltrate in the right medial retro hilar region. - Patient evaluated by Dr. Le, greatly appreciate his assistance, his assessment is right lung pneumonia with bronchiectasis, COPD and chronic bronchitis as well as possible REGIS. Patient started on Symbicort. - Continue with IV antibiotics consisting of Zosyn, Levaquin and vancomycin - Sputum culture shows moderate growth of normal respiratory karla - Urine antigen for Legionella and pneumococcus is negative - Supplemental oxygen - DuoNeb scheduled - IV Solu-Medrol 40 mg every 12 - Patient ambulated 120ft with PT today and was satting 95% on room air Lactic acidosis>> resolved - DC iv fluid - Encourage oral intake COPD mostly worsened with a pneumonia -DuoNeb, O2, Solu-Medrol Diabetes mellitus - Continue metformin - Accu-Cheks - Insulin sliding scale - diabetic diet REGIS - Patiently currently undergoing outpatient workup with Dr. Meehan Hypothyroidism - Continue home levothyroxine dose Neuropathy -Continue home gabapentin BPH -Continue home Flomax DVT prophylaxis - Heparin sq Written by Aracely Paulino PA-C acting as scribe for Dr. Heath on 01/30/17 at 10:19. All or portions of this note were transcribed by scribe Aracely Paulino PA-C. I, Dr. Tunde Heath personally performed the history, physical exam, and medical decision making; and confirmed the accuracy of the information in the transcribed note. Authenticated by Dr. Tunde Heath on 01/30/17 at 19:00. Discharge Planning Possibly Thursday, if cleared by Aracely Willams Jan 30, 2017 12:13 Tunde Heath MD Jan 30, 2017 19:00
[2017-01-30] MEDS: LEVOFLOXACIN 750 MG PREMIX INJ 150 ML IV SCH (16:27)
[2017-01-30] MEDS: MONTELUKAST SODIUM 10 MG TAB PO SCH (22:01)
[2017-01-30] MEDS: GABAPENTIN 300 MG CAP PO SCH (22:01)
[2017-01-30] MEDS: PRAVASTATIN SOD 80 MG TAB PO SCH (22:01)
[2017-01-30] MEDS: diphenhydrAMINE HCL 50 MG CAP PO PRN (22:25)
[2017-01-30] MEDS: ACETAMINOPHEN 325 MG TAB PO PRN (22:25)
[2017-01-30] MEDS: BENZONATATE 100 MG CAP PO PRN (22:25)
[2017-01-30] MEDS: RESP: ALBUTEROL 2.5 MG/IPRATROPIUM 0.5 MG NEB (PRN) NEB (22:31)
[2017-01-31] VITALS (7 sets, daily range): BP systolic 104–147; BP diastolic 64–90; PULSE 72–93; RESP 16–18; TEMP 97.2–99; O2SAT 95–98
[2017-01-31] MEDS: PIPERACIL-TAZO 4.5 GM PREMIX 100 ML IV SCH ×4 (03:53→22:36)
[2017-01-31] MEDS: INSULIN ASPART SUPPLEMENTAL SCALE SQ SCH ×4 (06:34→21:00)
[2017-01-31] MEDS: LEVOTHYROXINE SODIUM 88 MCG TAB PO SCH (06:40)
[2017-01-31] MEDS: HEPARIN SODIUM - SQ 10,000 UNITS/ML VIAL SQ SCH ×3 (06:40→22:21)
[2017-01-31] MEDS: metFORMIN HCL 500 MG TAB PO SCH ×2 (06:41→22:20)
[2017-01-31] MEDS: RESP: ALBUTEROL 2.5 MG/IPRATROPIUM 0.5 MG NEB (SCH) NEB ×3 (07:39→14:57)
[2017-01-31] MEDS ORDERED: VANCOMYCIN TROUGH XX ONE (07:45)
[2017-01-31] MEDS: TIOTROPIUM BROMIDE 18 MCG INH INH SCH (08:31)
[2017-01-31] MEDS: BUDESONIDE-FORMOTEROL 160/4.5 MCG INHALER INH SCH ×2 (08:31→22:23)
[2017-01-31] MEDS: FERROUS SULFATE 325 MG (65 MG ELEMENTAL IRON) TAB PO SCH (08:32)
[2017-01-31] MEDS: MULTIVITAMINS/MINERALS THERAPEUTIC TAB PO SCH (08:32)
[2017-01-31] MEDS: PANTOPRAZOLE SOD 40 MG DELAYED RELEASE TAB PO SCH (08:32)
[2017-01-31] MEDS: PRIMIDONE 250 MG TAB PO SCH ×3 (08:32→17:42)
[2017-01-31] MEDS: POTASSIUM CHLORIDE 20 MEQ CONTROLLED RELEASE TAB PO SCH (08:32)
[2017-01-31] MEDS: ASCORBIC ACID 500 MG TAB PO SCH (08:32)
[2017-01-31] MEDS: FAMOTIDINE 20 MG TAB PO SCH ×2 (08:32→22:23)
[2017-01-31] MEDS: SODIUM CHLORIDE FLUSH BID IVF SCH ×2 (08:33→21:00)
[2017-01-31] MEDS: FUROSEMIDE 40 MG TAB PO SCH (08:33)
[2017-01-31] MEDS: LORATADINE 10 MG TAB PO SCH (08:33)
[2017-01-31] MEDS: methylPREDNISolone SOD SUCC 40 MG/1 ML VIAL IV SCH (08:33)
[2017-01-31] MEDS: busPIRone HCL 5 MG TAB PO SCH (08:33)
[2017-01-31] MEDS: TAMSULOSIN HCL 0.4 MG CAP PO SCH ×2 (08:33→22:20)
[2017-01-31] MEDS: PROPRANOLOL HCL 10 MG TAB PO SCH ×2 (08:34→21:00)
[2017-01-31] MEDS: BENZONATATE 100 MG CAP PO PRN ×2 (10:45→22:25)
--- NOTE | 2017-01-31 13:56 | HHI.PR ---
Subjective Remarks Follow-up on patient with recurrent pneumonia likely HCAP. Continues to report some improvement today. Still with persistent cough and use of Tessalon Perles. Denies any sputum production. No fever. Does report some diarrhea. No abdominal pain or nausea/vomiting. Denies any other complaints at this time. Objective Vitals Vital Signs Date Time Temp Pulse Resp B/P Pulse Ox O2 Delivery O2 Flow Rate FiO2 01/31/17 12:00 97.2 74 18 118/72 95 01/31/17 08:30 Room Air 01/31/17 08:00 97.5 72 18 115/73 97 01/31/17 07:39 97 21 01/31/17 00:11 97.5 76 16 104/64 98 01/30/17 20:11 96.4 96 18 137/84 97 01/30/17 19:40 98 21 01/30/17 19:00 97 Room Air 01/30/17 16:00 97.7 71 20 120/75 96 I/O 01/30/17 01/30/17 01/30/17 01/31/17 01/31/17 01/31/17 07:00 15:00 23:00 07:00 15:00 23:00 Intake Total 1185 ml 925 ml Output Total 1703 ml Balance -518 ml 925 ml Intake Oral 240 ml IV Total 945 ml 925 ml Output Urine Total 1703 ml # Voids 3 1 # Bowel Movements 1 Result Diagram: 01/28/17 0540 01/30/17 0530 Objective Remarks GENERAL: This is a well-nourished, well-developed patient. Sitting up in bedside chair. INAD. SKIN: No rashes, ecchymoses or lesions. Warm and dry. HEAD: Atraumatic. Normocephalic. EYES: EOMI CARDIOVASCULAR: Regular rate and rhythm without murmurs, gallops, or rubs. RESPIRATORY: Diminished breath sounds but clear. GASTROINTESTINAL: Abdomen soft, non-tender, nondistended. No hepato- splenomegaly. No guarding. (+) Abdominal hernia. MUSCULOSKELETAL: Extremities without clubbing, cyanosis, or edema. No joint tenderness, effusion, or edema noted. No calf tenderness. NEUROLOGICAL: Awake alert oriented. Moves all extremities. No focal neurological deficit. Medications and IVs Current Medications Medications (Trade) Dose Ordered Sig/Iraz Route Start Time Stop Time Status Last Admin Sodium Chloride 2 ml 2 ml UNSCH PRN IVF 01/27/17 12:45 Piperacillin Sod/ Tazobactam Sod 100 ml @ 200 mls/hr Q6H IV 01/27/17 21:00 01/31/17 08:43 Pharmacy Profile Note 0 ml @ 0 mls/hr UNSCH XX 01/27/17 17:00 (Levaquin 750 Mg Premix Inj) 150 ml @ 100 mls/hr Q24H IV 01/27/17 18:00 01/30/17 16:27 (Tylenol) 650 mg Q4H PRN PO 01/27/17 17:00 (Zofran Inj) 4 mg Q6H PRN IVP 01/27/17 17:00 (Heparin Inj) 5,000 units Q8HR SQ 01/27/17 22:00 01/31/17 13:20 (Tylenol) 650 mg Q6H PRN PO 01/27/17 17:00 01/30/17 22:25 (NS Flush) 2 ml BID IVF 01/27/17 21:00 01/29/17 21:47 (Vitamin C) 2,000 mg DAILY PO 01/28/17 09:00 01/31/17 08:32 (Buspar) 5 mg DAILY PO 01/28/17 09:00 01/31/17 08:33 (Ferrous Sulfate) 325 mg DAILY PO 01/28/17 09:00 01/31/17 08:32 (Lasix) 20 mg DAILY PO 01/28/17 09:00 01/31/17 08:33 (Neurontin) 300 mg HS PO 01/27/17 21:00 01/30/17 22:01 (Synthroid) 88 mcg DAILY@06 PO 01/28/17 06:00 01/31/17 06:40 (Claritin) 10 mg DAILY PO 01/28/17 09:00 01/31/17 08:33 (Singulair) 10 mg HS PO 01/27/17 21:00 01/30/17 22:01 (Theragran M Tab) 1 tab DAILY PO 01/28/17 09:00 01/31/17 08:32 (KCl) 20 meq DAILY PO 01/28/17 09:00 01/31/17 08:32 (Mysoline) 250 mg TID PO 01/28/17 09:00 01/31/17 13:20 (Inderal) 10 mg Q12HR PO 01/27/17 21:00 01/31/17 08:34 (Flomax) 0.4 mg BID PO 01/27/17 21:00 01/31/17 08:33 (Spiriva Inh) 18 mcg DAILY INH 01/28/17 09:00 01/31/17 08:31 Patient Own Medication PT OWN MED: (Dulaglutide ... Q7D SQ 02/02/17 09:00 Future Hold (Symbicort 160-4.5 Inh) 2 puff BID INH 01/27/17 21:00 01/31/17 08:31 (Protonix) 40 mg DAILY PO 01/28/17 09:00 01/31/17 08:32 (Pepcid) 20 mg BID PO 01/27/17 21:00 01/31/17 08:32 (Pravachol) 80 mg HS PO 01/27/17 21:00 01/30/17 22:01 (D50w (Vial) Inj) 25 ml UNSCH PRN IV PUSH 01/27/17 19:15 (Glucagon Inj) 1 mg UNSCH PRN OTHER 01/27/17 19:15 (Tessalon) 200 mg Q8H PRN PO 01/28/17 16:45 01/31/17 10:45 (Benadryl) 25 mg HS PRN PO 01/29/17 01:15 01/29/17 01:19 (Benadryl) 50 mg HS PRN PO 01/29/17 19:15 01/30/17 22:25 (Glucophage) 500 mg HS PO 01/29/17 21:00 01/30/17 22:01 Methylprednisolone Sodium Succinate 40 mg 40 mg BID IV 01/29/17 21:00 01/31/17 08:33 (Vancomycin Inj/ NS 500 ml Inj) 513 ml @ 250 mls/hr Q18H IV 01/31/17 18:00 Miscellaneous Information SPECIFIC LAB TO BE DRAWN:VANCOMY... 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 Recurrent pneumonia Suspect HCAP considering recent hospitalization for pneumonia Severe sepsis with tachycardia, fever 102.8, leukocytosis and lactic acidosis - Suspected healthcare associated - CTA was obtained showing patchy nodular parenchymal lung infiltrates, most notably in the right lung with some new areas of infiltrate in the right medial retro hilar region. - Patient evaluated by Dr. Le, greatly appreciate his assistance, his assessment is right lung pneumonia with bronchiectasis, COPD, chronic bronchitis and REGIS. Patient started on Symbicort. - Continue with IV antibiotics consisting of Zosyn, Levaquin and vancomycin - Blood cultures show no growth 4 days - Sputum culture shows moderate growth of normal respiratory karla - Urine antigen for Legionella and pneumococcus is negative - Supplemental oxygen prn - continue with DuoNeb scheduled - IV Solu-Medrol 40 mg every 12, wean per pulmonary service - Patient ambulated 120ft with PT and was satting 95% on room air Lactic acidosis>> resolved - DC iv fluid - Encourage oral intake COPD mostly worsened with a pneumonia -DuoNeb, O2, Solu-Medrol Diabetes mellitus - Continue metformin - Blood sugars well controlled - Accu-Cheks - Insulin sliding scale - diabetic diet Diarrhea - Likely due to antibiotic use - No indication to order C. difficile testing at this time due to patient is afebrile, has no abdominal pain and does not appear toxic - Will continue to monitor and if patient develops new or worsening symptoms will order further testing - Add probiotic REGIS - Patiently currently undergoing outpatient workup with Dr. Meehan Hypothyroidism - Continue home levothyroxine dose Neuropathy -Continue home gabapentin BPH -Continue home Flomax DVT prophylaxis - Heparin sq Written by Aracely Paulino PA-C acting as scribe for Dr. Heath on 01/31/17 at 13:30. All or portions of this note were transcribed by scribe Aracely Paulino PA-C. I, Dr. Tunde Heath personally performed the history, physical exam, and medical decision making; and confirmed the accuracy of the information in the transcribed note. Authenticated by Dr. Tunde Heath on 01/31/17 at 15:49. Discharge Planning Possibly Thursday, if cleared by Pulmonary Aracely Paulino Jan 31, 2017 13:56 Tunde Heath MD Jan 31, 2017 15:49
[2017-01-31] MEDS: LACTOBACILLUS ACIDOPHILUS TAB PO SCH ×2 (14:23→22:20)
[2017-01-31] MEDS: LEVOFLOXACIN 750 MG PREMIX INJ 150 ML IV SCH (17:26)
[2017-01-31] MEDS ORDERED: VANCOMYCIN INJ 1,300 MG in SODIUM CHLORID 0.9% 500 ML INJ 500 ML IV SCH (18:00)
[2017-01-31] MEDS: RESP: ALBUTEROL 2.5 MG/IPRATROPIUM 0.5 MG NEB (PRN) NEB ×2 (18:30→21:17)
--- NOTE | 2017-01-31 18:40 | HHI.PR ---
Subjective Remarks Feels better. No fever. Still coughs up thick sputum. Wheezing at times. On IV antibiotics Objective Vital Signs Date Time Temp Pulse Resp B/P Pulse Ox O2 Delivery O2 Flow Rate FiO2 01/31/17 16:00 97.6 77 18 126/76 96 01/31/17 12:00 97.2 74 18 118/72 95 01/31/17 08:30 Room Air 01/31/17 08:00 97.5 72 18 115/73 97 01/31/17 07:39 97 21 01/31/17 00:11 97.5 76 16 104/64 98 01/30/17 20:11 96.4 96 18 137/84 97 01/30/17 19:40 98 21 01/30/17 19:00 97 Room Air I/O 01/30/17 01/30/17 01/30/17 01/31/17 01/31/17 01/31/17 07:00 15:00 23:00 07:00 15:00 23:00 Intake Total 1185 ml 925 ml 100 ml 600 ml Output Total 1703 ml Balance -518 ml 925 ml 100 ml 600 ml Intake Oral 240 ml 100 ml 600 ml IV Total 945 ml 925 ml Output Urine Total 1703 ml # Voids 3 1 # Bowel Movements 1 Result Diagram: 01/28/17 0540 01/30/17 0530 Objective Remarks This obese elderly man is in no acute distress. HEENT: Head normocephalic. Pupils reactive. Throat is clear. Ears no inflammation. Neck: Supple. No lymphadenopathy. Trachea midline. Chest: Equal movements with percussion note resonant throughout. Occasional wheezes anteriorly. Heart: The heart sounds are regular, S1-S2. No murmur. No S3. Abdomen: Soft, protuberant without masses or organomegaly. Extremities: 1+ edema. Mild varicosities. Neurologic: Reflexes 1+, no gross motor deficits. Cranial nerves grossly intact. Rectal: Exam is deferred. Skin: No lesions. Assessment and Plan Assessment and Plan IMPRESSION 1. Right lung pneumonia with bronchiectasis. 2. Chronic obstructive pulmonary disease and chronic bronchitis. 3. History of aspergillosis. 4. Possible obstructive sleep apnea syndrome. 5. Diabetes mellitus type 2 6. Peripheral neuropathy. Plan : 1. Cont Antibiotics.and D/C Vanco 2. Switch Levaquin to Po 3. Nebs qid , duoneb. 4. D/c Solumedrol 5. Prednisone 20 mg bid 6. Symbicort 160/4.5 mcg , 2puffs bid 7. Add mucomyst 20 % ,2 CC qid. 8. Will need PET CT as OP. Deepika Le MD Jan 31, 2017 18:40
[2017-01-31] MEDS: RESP: ACETYLCYSTEINE 20% 4 ML NEB NEB SCH (21:18)
[2017-01-31] MEDS: diphenhydrAMINE HCL 50 MG CAP PO PRN (22:20)
[2017-01-31] MEDS: PRAVASTATIN SOD 80 MG TAB PO SCH (22:20)
[2017-01-31] MEDS: ACETAMINOPHEN 325 MG TAB PO PRN (22:21)
[2017-01-31] MEDS: GABAPENTIN 300 MG CAP PO SCH (22:23)
[2017-01-31] MEDS: MONTELUKAST SODIUM 10 MG TAB PO SCH (22:25)
[2017-02-01 00:54] VITALS: BP 128/82; PULSE 83; RESP 16; TEMP 98; O2SAT 98
[2017-02-01] MEDS: PIPERACIL-TAZO 4.5 GM PREMIX 100 ML IV SCH ×3 (02:15→15:36)
[2017-02-01 04:11] VITALS: BP 107/67; PULSE 74; RESP 16; TEMP 98.7; O2SAT 99
[2017-02-01] MEDS: HEPARIN SODIUM - SQ 10,000 UNITS/ML VIAL SQ SCH ×2 (06:13→12:44)
[2017-02-01] MEDS: metFORMIN HCL 500 MG TAB PO SCH (06:15)
[2017-02-01] MEDS: ACETAMINOPHEN 325 MG TAB PO PRN (06:15)
[2017-02-01] MEDS: BENZONATATE 100 MG CAP PO PRN (06:16)
[2017-02-01] MEDS: LEVOTHYROXINE SODIUM 88 MCG TAB PO SCH (06:16)
[2017-02-01] MEDS: INSULIN ASPART SUPPLEMENTAL SCALE SQ SCH ×3 (06:18→15:38)
[2017-02-01] MEDS: RESP: ACETYLCYSTEINE 20% 4 ML NEB NEB SCH ×3 (07:44→15:14)
[2017-02-01] MEDS: RESP: ALBUTEROL 2.5 MG/IPRATROPIUM 0.5 MG NEB (PRN) NEB ×3 (07:44→15:14)
[2017-02-01 07:46] VITALS: O2SAT 94
[2017-02-01 08:00] VITALS: BP 117/76; PULSE 74; RESP 18; TEMP 97.5; O2SAT 97
[2017-02-01] MEDS: TIOTROPIUM BROMIDE 18 MCG INH INH SCH (08:16)
[2017-02-01] MEDS: FERROUS SULFATE 325 MG (65 MG ELEMENTAL IRON) TAB PO SCH (08:18)
[2017-02-01] MEDS: LORATADINE 10 MG TAB PO SCH (08:18)
[2017-02-01] MEDS: ASCORBIC ACID 500 MG TAB PO SCH (08:18)
[2017-02-01] MEDS: LACTOBACILLUS ACIDOPHILUS TAB PO SCH (08:18)
[2017-02-01] MEDS: FAMOTIDINE 20 MG TAB PO SCH (08:18)
[2017-02-01] MEDS: PRIMIDONE 250 MG TAB PO SCH ×3 (08:18→17:53)
[2017-02-01] MEDS: MULTIVITAMINS/MINERALS THERAPEUTIC TAB PO SCH (08:18)
[2017-02-01] MEDS: BUDESONIDE-FORMOTEROL 160/4.5 MCG INHALER INH SCH (08:18)
[2017-02-01] MEDS: PROPRANOLOL HCL 10 MG TAB PO SCH (08:19)
[2017-02-01] MEDS: POTASSIUM CHLORIDE 20 MEQ CONTROLLED RELEASE TAB PO SCH (08:19)
[2017-02-01] MEDS: TAMSULOSIN HCL 0.4 MG CAP PO SCH (08:19)
[2017-02-01] MEDS: SODIUM CHLORIDE FLUSH BID IVF SCH (08:19)
[2017-02-01] MEDS: FUROSEMIDE 40 MG TAB PO SCH (08:19)
[2017-02-01] MEDS: busPIRone HCL 5 MG TAB PO SCH (08:19)
[2017-02-01] MEDS: PANTOPRAZOLE SOD 40 MG DELAYED RELEASE TAB PO SCH (08:20)
[2017-02-01] MEDS ORDERED: LEVOFLOXACIN 500 MG TAB PO SCH (11:00)
[2017-02-01 12:00] VITALS: BP 121/84; PULSE 85; RESP 18; TEMP 98; O2SAT 95
--- NOTE | 2017-02-01 13:56 | HHI.PR ---
Subjective Remarks Follow-up on patient with recurrent pneumonia likely HCAP. C/O ongoing diarrhea. No fever, N/V or abdominal pain. Still with persistent cough and thick sputum production. Mucomyst added by Pulmonary service. No complaints of chest pain or SOB. Objective Vitals Vital Signs Date Time Temp Pulse Resp B/P Pulse Ox O2 Delivery O2 Flow Rate FiO2 02/01/17 12:17 Room Air 02/01/17 08:00 97.5 74 18 117/76 97 02/01/17 07:46 94 21 02/01/17 04:11 98.7 74 16 107/67 99 02/01/17 00:54 98.0 83 16 128/82 98 01/31/17 21:18 96 21 01/31/17 20:41 99.0 93 16 147/90 95 01/31/17 20:00 Room Air 01/31/17 16:00 97.6 77 18 126/76 96 I/O 01/31/17 01/31/17 01/31/17 02/01/17 02/01/17 02/01/17 07:00 15:00 23:00 07:00 15:00 23:00 Intake Total 100 ml 2234 ml 300 ml Balance 100 ml 2234 ml 300 ml Intake Oral 100 ml 600 ml IV Total 1634 ml 300 ml # Voids 3 1 1 Result Diagram: 01/28/17 0540 02/01/17 0647 Objective Remarks GENERAL: This is a well-nourished, well-developed patient. Sitting up in bedside chair. INAD. SKIN: No rashes, ecchymoses or lesions. Warm and dry. HEAD: Atraumatic. Normocephalic. EYES: EOMI CARDIOVASCULAR: Regular rate and rhythm without murmurs, gallops, or rubs. RESPIRATORY: Diminished breath sounds but clear. GASTROINTESTINAL: Abdomen soft, non-tender, nondistended. No hepato- splenomegaly. No guarding. (+) Abdominal hernia. MUSCULOSKELETAL: Extremities without clubbing, cyanosis, or edema. No joint tenderness, effusion, or edema noted. No calf tenderness. NEUROLOGICAL: Awake alert oriented. Moves all extremities. No focal neurological deficit. Medications and IVs Current Medications Medications (Trade) Dose Ordered Sig/Riaz Route Start Time Stop Time Status Last Admin Sodium Chloride 2 ml 2 ml UNSCH PRN IVF 01/27/17 12:45 (Zosyn 4.5 Gm Premix) 100 ml @ 200 mls/hr Q6H IV 01/27/17 21:00 02/01/17 08:16 (Tylenol) 650 mg Q4H PRN PO 01/27/17 17:00 (Zofran Inj) 4 mg Q6H PRN IVP 01/27/17 17:00 (Heparin Inj) 5,000 units Q8HR SQ 01/27/17 22:00 02/01/17 12:44 (Tylenol) 650 mg Q6H PRN PO 01/27/17 17:00 02/01/17 06:15 (NS Flush) 2 ml BID IVF 01/27/17 21:00 02/01/17 08:19 (Vitamin C) 2,000 mg DAILY PO 01/28/17 09:00 02/01/17 08:18 (Buspar) 5 mg DAILY PO 01/28/17 09:00 02/01/17 08:19 (Ferrous Sulfate) 325 mg DAILY PO 01/28/17 09:00 02/01/17 08:18 (Lasix) 20 mg DAILY PO 01/28/17 09:00 02/01/17 08:19 (Neurontin) 300 mg HS PO 01/27/17 21:00 01/31/17 22:23 (Synthroid) 88 mcg DAILY@06 PO 01/28/17 06:00 02/01/17 06:16 (Claritin) 10 mg DAILY PO 01/28/17 09:00 02/01/17 08:18 (Singulair) 10 mg HS PO 01/27/17 21:00 01/31/17 22:25 (Theragran M Tab) 1 tab DAILY PO 01/28/17 09:00 02/01/17 08:18 (KCl) 20 meq DAILY PO 01/28/17 09:00 02/01/17 08:19 (Mysoline) 250 mg TID PO 01/28/17 09:00 02/01/17 12:44 (Inderal) 10 mg Q12HR PO 01/27/17 21:00 02/01/17 08:19 (Flomax) 0.4 mg BID PO 01/27/17 21:00 02/01/17 08:19 (Spiriva Inh) 18 mcg DAILY INH 01/28/17 09:00 02/01/17 08:16 Patient Own Medication PT OWN MED: (Dulaglutide ... Q7D SQ 02/02/17 09:00 Future Hold (Symbicort 160-4.5 Inh) 2 puff BID INH 01/27/17 21:00 02/01/17 08:18 (Protonix) 40 mg DAILY PO 01/28/17 09:00 02/01/17 08:20 (Pepcid) 20 mg BID PO 01/27/17 21:00 02/01/17 08:18 (Pravachol) 80 mg HS PO 01/27/17 21:00 01/31/17 22:20 (D50w (Vial) Inj) 25 ml UNSCH PRN IV PUSH 01/27/17 19:15 (Glucagon Inj) 1 mg UNSCH PRN OTHER 01/27/17 19:15 (Tessalon) 200 mg Q8H PRN PO 01/28/17 16:45 02/01/17 06:16 (Benadryl) 25 mg HS PRN PO 01/29/17 01:15 01/29/17 01:19 (Benadryl) 50 mg HS PRN PO 01/29/17 19:15 01/31/17 22:20 (Glucophage) 500 mg HS PO 01/29/17 21:00 01/31/17 22:20 (Lactinex) 1 tab Q12HR PO 01/31/17 14:00 02/01/17 08:18 (Levaquin) 500 mg DAILY@11 PO 02/01/17 11:00 02/01/17 12:44 A/P Assessment and Plan 71-year-old male with a past medical history significant for COPD who was previously utilizing oxygen at night but has not had any since June when he had to return the equipment prior to moving to this area from [place], history of aspergillosis in the lung status post right thoracotomy and resection , diabetes with neuropathy, hypothyroidism, abdominal aortic aneurysm and a recent pneumonia requiring hospitalization who presents to [facility] ED with complaints of cough and weakness. Recurrent pneumonia Suspect HCAP considering recent hospitalization for pneumonia Severe sepsis with tachycardia, fever 102.8, leukocytosis and lactic acidosis - Suspected healthcare associated - Improving - CTA was obtained showing patchy nodular parenchymal lung infiltrates, most notably in the right lung with some new areas of infiltrate in the right medial retro hilar region. - Patient evaluated by Dr. Le, greatly appreciate his assistance, his assessment is right lung pneumonia with bronchiectasis, COPD, chronic bronchitis and RGEIS. Patient started on Symbicort. - Continue with IV antibiotics consisting of Zosyn. Levaquin changed to po. Vanc discontinued by Pulm. Mucomyst added. - Blood cultures show no growth 4 days - Sputum culture shows moderate growth of normal respiratory karla - Urine antigen for Legionella and pneumococcus is negative - Supplemental oxygen prn - continue with DuoNeb scheduled - IV solumedrol discontinued, now on po prednisone 20mg BID - Patient ambulated 120ft with PT and was satting 95% on room air Lactic acidosis>> resolved - DC iv fluid - Encourage oral intake COPD mostly worsened with a pneumonia -DuoNeb, O2, Solu-Medrol Diabetes mellitus - Continue metformin - Blood sugars well controlled - Accu-Cheks - Insulin sliding scale - diabetic diet Diarrhea - continued episodes of loose stools - possibly due to antibiotic administration. - Concern for CDiff infection. C diff ordered and will f/u on results - continue probiotic REGIS - Patiently currently undergoing outpatient workup with Dr. Meehan Hypothyroidism - Continue home levothyroxine dose Neuropathy -Continue home gabapentin BPH -Continue home Flomax DVT prophylaxis - Heparin sq Written by Aracely Paulino PA-C acting as scribe for Dr. Heath on 02/01/17 at 11:20. All or portions of this note were transcribed by scribe Aracely Paulino PA-C. I, Dr. Tunde Heath personally performed the history, physical exam, and medical decision making; and confirmed the accuracy of the information in the transcribed note. Authenticated by Dr. Tunde Heath on 02/01/17 at 15:03. Discharge Planning Possible discharge home later today pending stool studies. Aracely Paulino Feb 01, 2017 13:56 Tunde Heath MD Feb 01, 2017 15:03
[2017-02-01 16:00] VITALS: BP 141/83; PULSE 85; RESP 18; TEMP 98.7; O2SAT 95
[2017-02-01 16:55] LABS: C. DIFF EPI 027 PRESUMPTIVE NEGATIVE (NEGATIVE); C. DIFF TOXIN PCR NEGATIVE (NEGATIVE)
--- NOTE | 2017-02-01 18:18 | HHI.PR ---
Subjective Remarks Feels better. No fever. Wheezing at times. On IV antibiotics Objective Vital Signs Date Time Temp Pulse Resp B/P Pulse Ox O2 Delivery O2 Flow Rate FiO2 02/01/17 16:00 98.7 85 18 141/83 95 02/01/17 12:17 Room Air 02/01/17 12:00 98.0 85 18 121/84 95 02/01/17 08:00 97.5 74 18 117/76 97 02/01/17 07:46 94 21 02/01/17 04:11 98.7 74 16 107/67 99 02/01/17 00:54 98.0 83 16 128/82 98 01/31/17 21:18 96 21 01/31/17 20:41 99.0 93 16 147/90 95 01/31/17 20:00 Room Air I/O 01/31/17 01/31/17 01/31/17 02/01/17 02/01/17 02/01/17 07:00 15:00 23:00 07:00 15:00 23:00 Intake Total 100 ml 2234 ml 300 ml 600 ml Output Total 3 ml Balance 100 ml 2234 ml 300 ml 597 ml Intake Oral 100 ml 600 ml 600 ml IV Total 1634 ml 300 ml Stool Total 3 ml # Voids 3 1 1 3 Result Diagram: 01/28/17 0540 02/01/17 0647 Objective Remarks This obese elderly man is in no acute distress. HEENT: Head normocephalic. Pupils reactive. Throat is clear. Ears no inflammation. Neck: Supple. No lymphadenopathy. Trachea midline. Chest: Equal movements with percussion note resonant throughout. Occasional wheezes anteriorly. Heart: The heart sounds are regular, S1-S2. No murmur. No S3. Abdomen: Soft, protuberant without masses or organomegaly. Extremities: 1+ edema. Mild varicosities. Neurologic: Reflexes 1+, no gross motor deficits. Cranial nerves grossly intact. Rectal: Exam is deferred. Skin: No lesions. Assessment and Plan Assessment and Plan IMPRESSION 1. Right lung pneumonia with bronchiectasis. 2. Chronic obstructive pulmonary disease and chronic bronchitis. 3. History of aspergillosis. 4. Possible obstructive sleep apnea syndrome. 5. Diabetes mellitus type 2 6. Peripheral neuropathy. Plan : 1. Cont Antibiotics. 2. Cont Levaquin Po 3. Nebs qid , duoneb. 4. Home per Dr Heath 5. Prednisone 20 mg bid 6. Symbicort 160/4.5 mcg , 2puffs bid 7. Add mucomyst 20 % ,2 CC qid. 8. Will need PET CT as OP. Deepika Le MD Feb 01, 2017 18:18
[2017-02-01] MEDS ORDERED: BENZ100 PO (18:58)
[2017-02-01] MEDS ORDERED: LEVA500T PO (18:58)
[2017-02-01] MEDS ORDERED: IPRASOL NEB (18:58)
--- NOTE | 2017-02-01 18:59 | HHI.DCPOC ---
Discharge Care Plan Diagnosis: (1) COPD exacerbation (2) Pneumonia Goals to Promote Your Health * To prevent worsening of your condition and complications * To maintain your health at the optimal level Directions to Meet Your Goals Take your medications as prescribed Follow your dietary instruction Follow activity as directed Keep your appointments as scheduled Take your immunizations and boosters as scheduled If your symptoms worsen call your PCP, if no PCP go to Urgent Care Center or Emergency Room Smoking is Dangerous to Your Health. Avoid second hand smoke Call the 24-hour hour crisis hotline for domestic abuse at Tunde Heath MD Feb 01, 2017 18:59
[2017-02-01] MEDS ORDERED: MEDR4PAK PO (19:01)
--- NOTE | 2017-02-01 19:04 | HHI.DS ---
Discharge Summary Admission Date Jan 27, 2017 at 15:46 Discharge Date: Feb 01, 2017 Admitting Diagnosis pneumonia (1) COPD exacerbation ICD Code: J44.1 (2) Pneumonia ICD Code: J18.9 (3) DM2 (diabetes mellitus, type 2) ICD Code: E11.9 Procedures None Brief History - From Admission This is a 71-year-old male with a past medical history significant for COPD who was previously utilizing oxygen at night but has not had any since June when he had to return the equipment prior to moving to this area from [place], history of aspergillosis in the lung status post right thoracotomy and resection , diabetes with neuropathy, hypothyroidism, abdominal aortic aneurysm and a recent pneumonia requiring hospitalization who presents to [facility] ED with complaints of cough and weakness. Patient states yesterday he was square dancing with his when he suddenly developed severe dizziness and weakness forcing him to sit down. This morning he woke up with a headache and developed a cough without associated shortness of breath. He also reports that he was extremely lightheaded and disoriented and was basically unable to stand. He states this fever at home was as high as 102 and his blood sugar was 179 which was very high for him and usually indicates an infection. He denies any associated chest pain or nausea or vomiting. Patient was admitted on December 31 with right lower lobe pneumonia. At that time he had significant shortness of breath and sputum production which he denies having now. Just prior to that admission, he was admitted for mild COPD exacerbation. In the ED, head CT was obtained and showed only a chronic sinusitis. CTA was obtained showing patchy nodular parenchymal lung infiltrates, most notably in the right lung with some new areas of infiltrate in the right medial retrohilar region. He is febrile with a temperature of 102.8 and elevated white count of 11.1 with left shift. Incidentally patient was just seen for the first time in Dr. Meehan's clinic and was diagnosed with moderate emphysema and was scheduled for sleep study as an outpatient. CBC/BMP: 01/28/17 0540 02/01/17 0647 Significant Findings Laboratory Tests Test 3/01/31/17 02/01/17 05:30 09:09 06:47 Estimat Glomerular Filtration 75 ML/MIN (>89) 73 ML/MIN (>89) Rate Vancomycin Level Trough 22.4 MCG/ML (5.0-10.0) Imaging Last Impressions Chest X-Ray 01/29/17 0600 Signed Impressions: Service Date/Time: January 05:12 - CONCLUSION: No acute disease. Ayush Shea MD Head CT 01/27/17 1254 Signed Impressions: Service Date/Time: Friday, January 27, 2017 14:20 - CONCLUSION: 1. Chronic sinusitis. 2. Otherwise negative. Raúl Winter MD Aorta CTA 01/27/17 0000 Signed Impressions: Service Date/Time: Friday, January 27, 2017 14:28 - CONCLUSION: No acute vascular findings in the chest, abdomen or pelvis. Patchy nodular parenchymal lung infiltrates, most notably in the right lung with some new areas of infiltrate in the right medial retrohilar region. Continued followup recommended versus additional short-term evaluation with PET/CT. Stable small cystic pancreatic mass. Delio Lees MD PE at Discharge GENERAL: This is a well-nourished, well-developed patient. Sitting up in bedside chair. INAD. SKIN: No rashes, ecchymoses or lesions. Warm and dry. HEAD: Atraumatic. Normocephalic. EYES: EOMI CARDIOVASCULAR: Regular rate and rhythm without murmurs, gallops, or rubs. RESPIRATORY: Diminished breath sounds but clear. GASTROINTESTINAL: Abdomen soft, non-tender, nondistended. No hepato- splenomegaly. No guarding. (+) Abdominal hernia. MUSCULOSKELETAL: Extremities without clubbing, cyanosis, or edema. No joint tenderness, effusion, or edema noted. No calf tenderness. NEUROLOGICAL: Awake alert oriented. Moves all extremities. No focal neurological deficit. Hospital Course The patient was admitted for treatment of recurrent pneumonia, likely HCAP. He met criteria for severe sepsis. He was started on IV antibiotics. Pulmonology was consulted. Steroids were tapered during the hospitalization. He was continued on supplemental oxygen, Duoneb, and Symbicort. Blood cultures were negative. Sputum culture grew normal respiratory karla. The patient continued to show improvement throughout the hospitalization. He was transitioned to oral antibiotics and steroids. He was cleared for discharge by Pulmonology and felt to be stable for discharge home. Pt Condition on Discharge: Stable Discharge Disposition: Discharge Home Discharge Time: > 30 minutes Discharge Instructions DIET: Follow Instructions for: Diabetic Diet Activities you can perform: Regular-No Restrictions Follow up Referrals: PCP Follow-up - [address] Oh Pulmonology - 1 Week with Deepika Le MD New Medications: Methylprednisolone Dosepak (Medrol Dosepak) 4 Mg Dspk 4 MG PO DIRECTED Per Pharmacist direction #1 Ref 0 DSPK Benzonatate (Tessalon Perles) 100 Mg Cap 200 MG PO Q8H PRN COUGH #60 Ref 0 CAP Ipratropium-Albuterol Neb (Duoneb) 0.5-2.5 Mg/3 Ml Neb 1 AMPULE NEB Q6HR PRN short of breath #120 Ref 0 ML Levofloxacin (Levaquin) 500 Mg Tab 500 MG PO DAILY@11 Infection #5 Ref 0 TAB Continued Medications: Ascorbic Acid (Vitamin C) 1,000 Mg Tab 2000 MG PO DAILY Nutritional Supplement Ref 0 TAB Buspirone (Buspirone) 5 Mg Tab 5 MG PO PRN Anxiety Ref 0 TAB Docusate Sodium (Stool Softener) 100 Mg Cap 3 TAB PO DAILY Dulaglutide Inj (Trulicity Inj) 0.75 Mg/0.5 Ml Pen 0.75 MG SQ Q7D Blood Sugar Management #4 Ref 0 PEN Ferrous Sulfate (Iron) 325 Mg Tab 65 MG PO DAILY Take Nutritional Supplement Ref 0 TAB Fluticasone-Salmeterol Inh (Advair Diskus Inh) 500-50 Mcg/Blist Aer 1 PUFF INH BID Rinse mouth after use. #1 Ref 0 INHALER Furosemide (Lasix) 40 Mg Tab 20 MG PO DAILY #60 Ref 0 TAB Gabapentin (Gabapentin) 300 Mg Cap 300 MG PO HS #30 Ref 0 CAP Ipratropium-Albuterol Inh (Combivent Respimat Inh) 20-100 Longterm/Act Aero 1 PUFF INH QID PRN WHEEZING #1 Ref 0 INHALER Lansoprazole (Lansoprazole) 30 Mg Capdr 30 MG PO DAILY Ref 0 CAP Levothyroxine (Levothyroxine) 25 Mcg Tab 88 MCG PO DAILY Thyroid #30 Ref 0 TAB Loratadine Odt (Claritin Reditabs) 10 Mg Tab 10 MG PO DAILY Allergy Management Ref 0 TAB Magnesium (Magnesium) 250 Mg Tab 1 TAB PO DAILY Metaxalone (Metaxalone) 800 Mg Tab 800 MG PO BID Muscle Spasm Ref 0 TAB Metformin (Metformin) 1,000 Mg Tab 1000 MG PO in am With meals Blood Sugar Management #60 Ref 0 TAB Metformin (Metformin) 500 Mg Tab 500 MG PO HS With meals Blood Sugar Management #60 Ref 0 TAB Methylcellulose (Citrucel) 500 Mg Tab 2 TAB PO DAILY Prevent Constipation Ref 0 TAB Montelukast (Singulair) 10 Mg Tab 10 MG PO HS #30 Ref 0 TAB Multiple Vitamins W/ Minerals (Multivitamin Men) 1 Tab Tab 1 TAB PO DAILY Nutritional Supplement Ref 0 TAB Naproxen (Naproxen) 500 Mg Tab 500 MG PO BID #60 Ref 0 TAB [place]-3 Fatty Acids (Fish Oil) 1,000 Mg Cap 3000 MG PO DAILY Oxygen tank (Oxygen tank) 1 Ea Tank 2 LITER JUAN.CANULA CONTINUOUS Oxygen Concentrator Portable Gaseous 2 L/min via Nasal Cannula Continuous For 99 months HYPOXEMIA PREVENTION #2 CYLINDER Potassium Chloride ER (Potassium Chloride ER) 20 Meq Tab 20 MEQ PO DAILY Electrolyte Replacement #30 Ref 0 TAB Primidone (Primidone) 250 Mg Tab 250 MG PO TID Control Seizures #90 Ref 0 TAB Propranolol (Propranolol) 10 Mg Tab 10 MG PO Q12HR #60 Ref 0 TAB Ranitidine (Ranitidine) 300 Mg Cap 300 MG PO HS Ref 0 CAP Simvastatin (Simvastatin) 40 Mg Tab 40 MG PO HS Cholesterol Management #30 Ref 0 TAB Tamsulosin (Tamsulosin) 0.4 Mg Cap 0.4 MG PO BID Manage Prostate Problems #30 Ref 0 CAP Tiotropium Inh (Spiriva Handihaler) 18 Mcg Cap 18 MCG INH DAILY 1 capsule = 18 mcg COPD #30 Ref 0 CAP Triamcinolone Acetonide (Nasal (Nasacort Allergy 24Hr) 55 Mcg/Act Spr DAILY Zinc Gluconate (Zinc) 30 Mg Tab 1 TAB PO DAILY Tunde Heath MD Feb 01, 2017 19:04
[2017-02-02] MEDS ORDERED: VANCOMYCIN TROUGH XX ONE (05:45)
[2017-02-02] MEDS ORDERED: DULAGLUTIDE 0.75 MG SQ SCH (09:00)
== END 2017-02-01 20:00 | disposition home or self-care (01) | DRG 871 ==
LOC: PHED 12:17 → PHEDA 15:46 → PH3B 17:49
PROVIDERS: ADMIT Family Medicine; ATTEND Family Medicine
DX: A41.9 Sepsis, unspecified organism (principal); J18.9 Pneumonia, unspecified organism; J44.1 Chronic obstructive pulmonary disease with (acute) exacerbation; E11.42 Type 2 diabetes mellitus with diabetic polyneuropathy; R65.20 Severe sepsis without septic shock; D63.8 Anemia in other chronic diseases classified elsewhere; E03.9 Hypothyroidism, unspecified; I71.4 Abdominal aortic aneurysm, without rupture; N40.0 Benign prostatic hyperplasia without lower urinary tract symptoms; Z86.79 Personal history of other diseases of the circulatory system; Z86.11 Personal history of tuberculosis; G47.33 Obstructive sleep apnea (adult) (pediatric)
CPT/HCPCS: 36600; 70450; 71010; 71275; 74174; 80048; 80053; 80202; 81001; 82550; 82565; 82805; 82948; 83605; 83735; 84484; 85025; 87040; 87070; 87205; 87449; 87493; 93005; 94640; 94664; 96365; J0456; J1644; J1815; J1956; J2543; J2920; J3370; J7030; J7040; J7050; J7608; Q0163; Q9967

== ENCOUNTER 2017-02-06 12:03 | Emergency (ER) | payer MEDICARE, OTHER ==
[~2017-02-06] VITALS: Ht 175.3 cm; Wt 83.3 kg
[~2017-02-06 12:03] MED LIST changes: +BENZ100 PO; -CPAP; -DOXY100C PO; -IPRASOL INH; +IPRASOL NEB; +LEVA500T PO; -LEVA750T PO; +MEDR4PAK PO; -NEBULIZER1 MI1; -PRED20 PO; +TAMS0.4C4 PO; -TERA2CAP3 PO
[2017-02-06 12:08] VITALS: BP 118/82; PULSE 100; RESP 16; TEMP 98.1; O2SAT 98
[2017-02-06] MEDS ORDERED: SODIUM CHLORIDE 0.9% FLUSH 10 ML FLUSH IVF PRN (12:30)
--- NOTE | 2017-02-06 12:45 | PD ---
HPI Chief Complaint: GI Complaint Time Seen by Provider: 12:29 Travel History International Travel<30 days: No Contact w/Intl Traveler<30days: No Traveled to known affect area: No History of Present Illness HPI Patient is a 71-year-old male presents emergency department with complaint of loose stools and hematochezia. Patient states that for the last 1.5 weeks he has been having loose stools, this is primarily diarrhea. Patient was recently hospitalized for pneumonia and was on antibiotic therapy. His stools are not particularly malodorous. He is having one to 3 loose stools per day. He has not noticed any blood until this morning when he had bright red blood per rectum prompting his ER visit. Patient is not anticoagulated at home but when he was recently hospitalized here for pneumonia he was getting subcutaneous DVT prophylaxis. Patient denies any history of GI bleed. He last had a colonoscopy 3 years ago that was normal. He does feel fatigued, and has felt this way since his hospital discharge. PFSH Past Medical History Hx Anticoagulant Therapy: No (states was on heparin injections 02/01/17 admission) Anemia: Yes Arthritis: No Heart Rhythm Problems: No Cancer: No Cardiovascular Problems: Yes (RBBB) High Cholesterol: Yes Chest Pain: No Congestive Heart Failure: No COPD: Yes Diabetes: Yes (type 2) Diminished Hearing: No Endocrine: Yes Gastrointestinal Disorders: Yes GERD: Yes Genitourinary: Yes Immune Disorder: No Implanted Vascular Access Dvce: Yes Musculoskeletal: Yes Neurologic: Yes Psychiatric: No Reproductive: No Respiratory: Yes (copd) Sleep Apnea: Yes Thyroid Disease: Yes Past Surgical History Abdominal Surgery: Yes (lap ambrocio 2000) Cholecystectomy: Yes Eye Surgery: Yes (CATARACT BILATERAL, bilateral blephoplasty 2015) Tonsillectomy: Yes Other Surgery: Yes (Bilat ulnar nerve/ r upper lobe thoracotomy) Social History Alcohol Use: Yes Tobacco Use: No Substance Use: No Allergies-Medications (Allergen,Severity, Reaction): Coded Allergies: Demerol (Verified Allergy, Severe, Anaphylaxis, 02/06/17) Valium (Verified Allergy, Severe, Anaphylaxis, 02/06/17) Tuberculin PPD (Verified Allergy, Intermediate, INFLAMED AREA, LOCKS ARM UP., 02/06/17) Keflex (Verified Allergy, Unknown, 02/06/17) Reported Meds & Prescriptions Reported Meds & Active Scripts Active Medrol Dosepak (Methylprednisolone) 4 Mg Dspk 4 Mg PO DIRECTED Per Pharmacist direction Duoneb (Ipratropium-Albuterol Neb) 0.5-2.5 Mg/3 Ml Neb 1 Ampule NEB Q6HR PRN Levaquin (Levofloxacin) 500 Mg Tab 500 Mg PO DAILY@11 Tessalon Perles (Benzonatate) 100 Mg Cap 200 Mg PO Q8H PRN Oxygen tank (Oxygen) 1 Ea Tank 2 Liter JUAN.CANULA CONTINUOUS Oxygen Concentrator Portable Gaseous 2 L/min via Nasal Cannula Continuous For 99 months Reported Metaxalone 800 Mg Tab 800 Mg PO BID Tamsulosin (Tamsulosin HCl) 0.4 Mg Cap 0.4 Mg PO BID Nasacort Allergy 24Hr (Triamcinolone Acetonide (Nasal) 55 Mcg/Act Spr DAILY Lansoprazole 30 Mg Capdr 30 Mg PO DAILY Potassium Chloride ER (Potassium Chloride) 20 Meq Tab 20 Meq PO DAILY Buspirone (Buspirone HCl) 5 Mg Tab 5 Mg PO PRN Metformin (Metformin HCl) 500 Mg Tab 500 Mg PO HS With meals Zinc (Zinc Gluconate) 30 Mg Tab 1 Tab PO DAILY Magnesium 250 Mg Tab 1 Tab PO DAILY Stool Softener (Docusate Sodium) 100 Mg Cap 3 Tab PO DAILY Citrucel (Methylcellulose) 500 Mg Tab 2 Tab PO DAILY Gabapentin 300 Mg Cap 300 Mg PO HS Claritin Reditabs (Loratadine) 10 Mg Tab 10 Mg PO DAILY Fish Oil ([place]-3 Fatty Acids) 1,000 Mg Cap 3,000 Mg PO DAILY Combivent Respimat Inh (Ipratropium-Albuterol Inh) 20-100 Senior Care/Act Aero 1 Puff INH QID PRN Vitamin C (Ascorbic Acid) 1,000 Mg Tab 2,000 Mg PO DAILY Multivitamin Men (Multiple Vitamins W/ Minerals) 1 Tab Tab 1 Tab PO DAILY Singulair (Montelukast Sodium) 10 Mg Tab 10 Mg PO HS Metformin (Metformin HCl) 1,000 Mg Tab 1,000 Mg PO IN AM With meals Naproxen 500 Mg Tab 500 Mg PO BID Trulicity Inj (Dulaglutide Inj) 0.75 Mg/0.5 Ml Pen 0.75 Mg SQ Q7D Simvastatin 40 Mg Tab 40 Mg PO HS Lasix (Furosemide) 40 Mg Tab 20 Mg PO DAILY Iron (Ferrous Sulfate) 325 Mg Tab 65 Mg PO DAILY Take Ranitidine (Ranitidine HCl) 300 Mg Cap 300 Mg PO HS Propranolol (Propranolol HCl) 10 Mg Tab 10 Mg PO Q12HR Primidone 250 Mg Tab 250 Mg PO TID Levothyroxine (Levothyroxine Sodium) 25 Mcg Tab 88 Mcg PO DAILY Spiriva Handihaler (Tiotropium Inh) 18 Mcg Cap 18 Mcg INH DAILY 1 capsule = 18 mcg Advair Diskus Inh (Fluticasone-Salmeterol Inh) 500-50 Mcg/Blist Aer 1 Puff INH BID Rinse mouth after use. Review of Systems Except as stated in HPI: all other systems reviewed are Neg Physical Exam Narrative GENERAL: Well-appearing elderly male in no acute distress SKIN: Focused skin assessment warm/dry. Complexion, baseline per patient and HEAD: Atraumatic. Normocephalic. EYES: No scleral icterus. No injection or drainage. ENT: Mucous membranes pink and moist. NECK: Supple CARDIOVASCULAR: Regular rate and rhythm. No murmur appreciated. RESPIRATORY: No accessory muscle use. Clear to auscultation. Breath sounds equal bilaterally. GASTROINTESTINAL: Abdomen soft, non-tender, nondistended. Ecchymosis on the abdominal wall from recent DVT prophylaxis injection site MUSCULOSKELETAL: Normal gait NEUROLOGICAL: Awake and alert. Motor grossly within normal limits. Normal speech. PSYCHIATRIC: Appropriate mood and affect; insight and judgment normal. Data Data Last Documented VS Vital Signs Date Time Temp Pulse Resp B/P Pulse Ox O2 Delivery O2 Flow Rate FiO2 02/06/17 13:08 98 02/06/17 12:08 98.1 100 16 118/82 Orders Basic Metabolic Panel (Bmp) (02/06/17 12:30) Complete Blood Count With Diff (02/06/17 12:30) Prothrombin Time / Inr (Pt) (02/06/17 12:30) Act Partial Throm Time (Ptt) (02/06/17 12:30) Type And Screen (02/06/17 12:30) Ecg Monitoring (02/06/17 12:30) Iv Access Insert/Monitor (02/06/17 12:30) Oximetry (02/06/17 12:30) Sodium Chloride 0.9% Flush (Ns Flush) (02/06/17 12:30) Sodium Chlor 0.9% 1000 Ml Inj (Ns 1000 M (3/31/17 13:37) Labs Laboratory Tests Test 02/06/17 13:00 White Blood Count 9.1 TH/MM3 Red Blood Count 3.97 MIL/MM3 Hemoglobin 12.3 GM/DL Hematocrit 35.6 % Mean Corpuscular Volume 89.7 FL Mean Corpuscular Hemoglobin 30.9 PG Mean Corpuscular Hemoglobin 34.4 % Concent Red Cell Distribution Width 13.2 % Platelet Count 316 TH/MM3 Mean Platelet Volume 6.1 FL Neutrophils (%) (Auto) 72.7 % Lymphocytes (%) (Auto) 18.6 % Monocytes (%) (Auto) 5.1 % Eosinophils (%) (Auto) 3.3 % Basophils (%) (Auto) 0.3 % Neutrophils # (Auto) 6.6 TH/MM3 Lymphocytes # (Auto) 1.7 TH/MM3 Monocytes # (Auto) 0.5 TH/MM3 Eosinophils # (Auto) 0.3 TH/MM3 Basophils # (Auto) 0.0 TH/MM3 CBC Comment DIFF FINAL Differential Comment Prothrombin Time 10.6 SEC Prothromb Time International 1.0 RATIO Ratio Activated Partial 26.3 SEC Thromboplast Time Sodium Level 139 MEQ/L Potassium Level 3.5 MEQ/L Chloride Level 101 MEQ/L Carbon Dioxide Level 26.4 MEQ/L Anion Gap 12 MEQ/L Blood Urea Nitrogen 29 MG/DL Creatinine 1.20 MG/DL Estimat Glomerular Filtration 60 ML/MIN Rate Random Glucose 117 MG/DL Calcium Level 9.3 MG/DL MDM Medical Decision Making Medical Screen Exam Complete: Yes Emergency Medical Condition: Yes Medical Record Reviewed: Yes Differential Diagnosis 71-year-old male here with complaint of loose stools and bright red blood per rectum 1 this morning. Differential includes antibiotic associated diarrhea, less likely C. difficile given the small frequency of his stools. Lower GI bleed including diverticula, hemorrhoid, fissure, mass, polyp and less likely brisk upper GI bleed. Narrative Course Patient placed on monitor, IV established and blood obtained. Given 1 L normal saline bolus. CBC, CMP, lipase obtained and unremarkable. Patient felt improved after fluids and has not had any recurrent episodes of bloody stools. Patient will be discharged home to follow-up with his GI physician as instructed. Diagnosis Primary Impression: Bright red blood per rectum Additional Impression: Diarrhea Qualified Code: R19.7 - Diarrhea, unspecified type Referrals: Wilda Art MD 3 days Patient Instructions: General Instructions, Rectal Bleeding (ED) Additional Instructions: Follow-up with GI physician as instructed. Return to the emergency department for the warning signs discussed. Med/Other Pt SpecificInfo: No Change to Meds Disposition: 01 DISCHARGE HOME Condition: Stable Azul Garcia MD Feb 06, 2017 12:45
[2017-02-06 13:08] VITALS: O2SAT 98
[2017-02-06 13:13] LABS: AUTOMATED NEUTROPHIL # 6.6 TH/MM3 (1.8-7.7); BASOPHIL % 0.3 % (0.0-2.0); EOSINOPHIL # 0.3 TH/MM3 (0-0.4); EOSINOPHIL % 3.3 % (0.0-4.0); HEMATOCRIT 35.6 % (39.0-51.0); HEMO FLAGS DIFF FINAL; LYMPH % 18.6 % (9.0-44.0); LYMPHOCYTE # 1.7 TH/MM3 (1.0-4.8); MEAN CELL VOLUME 89.7 FL (80.0-100.0); MEAN CORPUSCULAR HEMOGLOBIN 30.9 PG (27.0-34.0); MEAN CORPUSCULAR HGB CONC 34.4 % (32.0-36.0); MONO % 5.1 % (0.0-8.0); NEUT % 72.7 % (16.0-70.0); PLATELET COUNT 316 TH/MM3 (150-450); RED BLOOD COUNT 3.97 MIL/MM3 (4.50-5.90); RED CELL DISTRIBUTION WIDTH 13.2 % (11.6-17.2); WHITE BLOOD COUNT 9.1 TH/MM3 (4.0-11.0)
[2017-02-06 13:20] LABS: POTASSIUM 3.5 MEQ/L (3.5-5.1)
[2017-02-06 13:23] LABS: BICARBONATE 26.4 MEQ/L (21.0-32.0)
[2017-02-06 13:24] LABS: APTT (PATIENT) 26.3 SEC (24.3-30.1); PROTHROMBIN TIME - PATIENT 10.6 SEC (9.8-11.6)
[2017-02-06] MEDS ORDERED: SODIUM CHLOR 0.9% 1000 ML INJ 1,000 ML IV SCH (13:37)
[2017-02-06 14:16] VITALS: BP 113/69; PULSE 88; O2SAT 97
== END 2017-02-06 15:25 | disposition home or self-care (01) ==
LOC: PHED 12:03
DX: K62.5 Hemorrhage of anus and rectum (principal); R19.7 Diarrhea, unspecified; E78.00 Pure hypercholesterolemia, unspecified; D64.9 Anemia, unspecified; J44.9 Chronic obstructive pulmonary disease, unspecified; E11.9 Type 2 diabetes mellitus without complications; I45.10 Unspecified right bundle-branch block; Z79.4 Long term (current) use of insulin
CPT/HCPCS: 80048; 85025; 85610; 85730; 86850; 86900; 86901; 96360; 99284; J7030

== ENCOUNTER 2017-05-03 01:22 | Emergency (ER) | payer OTHER ==
[~2017-05-03] VITALS: Ht 175.3 cm; Wt 86.0 kg
[2017-05-03 01:27] VITALS: BP 128/76; PULSE 104; RESP 14; TEMP 99.9; O2SAT 95
[2017-05-03] MEDS ORDERED: SODIUM CHLORIDE 0.9% FLUSH 10 ML FLUSH IVF PRN (01:45)
[2017-05-03] MEDS ORDERED: MULTIVITAMIN SENIOR PO (02:09)
[2017-05-03] MEDS ORDERED: CLAR10CA3 PO (02:09)
[2017-05-03] MEDS ORDERED: PRIM250T PO (02:09)
[2017-05-03] MEDS ORDERED: IRON27TA PO (02:09)
[2017-05-03] MEDS ORDERED: VITA250T3 PO (02:09)
[2017-05-03] MEDS ORDERED: TERA5CAP3 PO (02:09)
[2017-05-03] MEDS ORDERED: MAGN100T2 PO (02:09)
[2017-05-03 02:10] VITALS: BP 110/70; PULSE 89; RESP 20; O2SAT 95
--- NOTE | 2017-05-03 02:32 | PD ---
HPI Chief Complaint: cough, fever Time Seen by Provider: 01:43 Travel History International Travel<30 days: No Contact w/Intl Traveler<30days: No Traveled to known affect area: No History of Present Illness HPI The patient is a 71-year-old male that was short of breath now for about one hour and he has had chills and fever for about 2 hours. The patient has had pneumonia in the past. states that 2 times x-rays did not show pneumonia but a CAT scan showed a pneumonia and she request a CAT scan be done if the x- ray does not show pneumonia. The patient also has a sore throat. He is a nonsmoker. He gets 2 L oxygen nasal cannula for his COPD. PFSH Past Medical History Hx Anticoagulant Therapy: No (states was on heparin injections 02/01/17 admission) Anemia: Yes Arthritis: No Heart Rhythm Problems: No Cancer: No Cardiovascular Problems: Yes (RBBB) High Cholesterol: Yes Chest Pain: No Congestive Heart Failure: No COPD: Yes Diabetes: Yes (type 2) Diminished Hearing: No Endocrine: Yes Gastrointestinal Disorders: Yes GERD: Yes Genitourinary: Yes Hypertension: Yes Immune Disorder: No Implanted Vascular Access Dvce: Yes Musculoskeletal: Yes Neurologic: Yes Psychiatric: No Reproductive: No Respiratory: Yes (copd) Sleep Apnea: Yes Thyroid Disease: Yes Past Surgical History Abdominal Surgery: Yes (lap ambrocio 2000) Cholecystectomy: Yes Eye Surgery: Yes (CATARACT BILATERAL, bilateral blephoplasty 2015) Tonsillectomy: Yes Other Surgery: Yes (Bilat ulnar nerve/ r upper lobe thoracotomy) Social History Alcohol Use: Yes Tobacco Use: No Substance Use: No Allergies-Medications (Allergen,Severity, Reaction): Coded Allergies: Demerol (Verified Allergy, Severe, Anaphylaxis, 05/03/17) Valium (Verified Allergy, Severe, Anaphylaxis, 05/03/17) Tuberculin PPD (Verified Allergy, Intermediate, INFLAMED AREA, LOCKS ARM UP., 05/03/17) Keflex (Verified Allergy, Unknown, 05/03/17) Reported Meds & Prescriptions Reported Meds & Active Scripts Active Duoneb (Ipratropium-Albuterol Neb) 0.5-2.5 Mg/3 Ml Neb 1 Ampule NEB Q6HR PRN Reported Iron (Ferrous Gluconate) 27 Mg Tab 65 Mg PO HS Terazosin (Terazosin HCl) 5 Mg Cap 5 Mg PO HS Primidone 250 Mg Tablet 250 Mg PO DAILY [multivitamin senior] PO DAILY Vitamin C (Ascorbic Acid) 250 Mg Tab 500 Mg PO Claritin (Loratadine) 10 Mg Cap 25 Mg PO DAILY Magnesium Citrate 100 Mg Tab 250 Mg PO DAILY Metaxalone 800 Mg Tab 800 Mg PO BID Nasacort Allergy 24Hr Nasal [place] (Triamcinolone Acetonide Nasal [place]) 55 Mcg/ Act Spr DAILY Lansoprazole 30 Mg Capdr 30 Mg PO DAILY Potassium Chloride ER (Potassium Chloride) 20 Meq Tab 20 Meq PO DAILY Buspirone (Buspirone HCl) 5 Mg Tab 5 Mg PO PRN Metformin (Metformin HCl) 500 Mg Tab 500 Mg PO HS With meals Zinc (Zinc Gluconate) 30 Mg Tab 1 Tab PO TID Stool Softener (Docusate Sodium) 100 Mg Cap 3 Tab PO DAILY Citrucel (Methylcellulose) 500 Mg Tab 2 Tab PO DAILY Gabapentin 300 Mg Cap 300 Mg PO HS Fish Oil ([place]-3 Fatty Acids) 1,000 Mg Cap 3,000 Mg PO DAILY Combivent Respimat Inh (Ipratropium-Albuterol Inh) 20-100 Care Home/Act Aero 1 Puff INH QID PRN Singulair (Montelukast Sodium) 10 Mg Tab 10 Mg PO HS Metformin (Metformin HCl) 1,000 Mg Tab 1,000 Mg PO IN AM With meals Naproxen 500 Mg Tab 500 Mg PO BID Trulicity Inj (Dulaglutide Inj) 0.75 Mg/0.5 Ml Pen 0.75 Mg SQ Q7D Simvastatin 40 Mg Tab 40 Mg PO HS Lasix (Furosemide) 40 Mg Tab 20 Mg PO DAILY Ranitidine (Ranitidine HCl) 300 Mg Cap 300 Mg PO HS Propranolol (Propranolol HCl) 10 Mg Tab 10 Mg PO Q12HR Levothyroxine (Levothyroxine Sodium) 25 Mcg Tab 88 Mcg PO DAILY Spiriva Handihaler (Tiotropium Inh) 18 Mcg Cap 18 Mcg INH DAILY 1 capsule = 18 mcg Advair Diskus Inh (Fluticasone-Salmeterol Inh) 500-50 Mcg/Blist Aer 1 Puff INH BID Rinse mouth after use. Review of Systems Except as stated in HPI: all other systems reviewed are Neg Physical Exam Narrative GENERAL: The patient is alert, oriented 3 and no obvious respiratory distress. His temperature is 99.9 with a heart rate of 104 but the rest of his vital signs are normal. SKIN: Focused skin assessment warm/dry. HEAD: Atraumatic. Normocephalic. EYES: Pupils equal and round. No scleral icterus. No injection or drainage. ENT: No nasal bleeding or discharge. Mucous membranes pink and moist. NECK: Trachea midline. No JVD. CARDIOVASCULAR: Regular rate and rhythm. No murmur appreciated. RESPIRATORY: No accessory muscle use. Clear to auscultation. Breath sounds equal bilaterally. Specifically, no wheezes are heard. GASTROINTESTINAL: Abdomen soft, non-tender, nondistended. Hepatic and splenic margins not palpable. MUSCULOSKELETAL: No obvious deformities. No clubbing. No cyanosis. No edema. NEUROLOGICAL: Awake and alert. No obvious cranial nerve deficits. Motor grossly within normal limits. Normal speech. PSYCHIATRIC: Appropriate mood and affect; insight and judgment normal. Data Data Last Documented VS Vital Signs Date Time Temp Pulse Resp B/P Pulse Ox O2 Delivery O2 Flow Rate FiO2 05/03/17 04:35 88 17 112/65 96 Room Air 05/03/17 03:20 98.4 Orders Electrocardiogram (05/03/17 01:43) Complete Blood Count With Diff (05/03/17 01:43) Comprehensive Metabolic Panel (05/03/17 01:43) Lactic Acid Sepsis Protocol (05/03/17 01:43) Blood Culture (05/03/17 01:43) Chest, Pa & Lat (05/03/17 01:43) Sodium Chloride 0.9% Flush (Ns Flush) (05/03/17 01:45) Group A Rapid Strep Screen (05/03/17 02:32) Strep Culture (Group A) (05/03/17 02:36) Labs Laboratory Tests Test 05/03/17 02:36 White Blood Count 11.1 TH/MM3 Red Blood Count 3.85 MIL/MM3 Hemoglobin 11.8 GM/DL Hematocrit 34.9 % Mean Corpuscular Volume 90.7 FL Mean Corpuscular Hemoglobin 30.6 PG Mean Corpuscular Hemoglobin 33.7 % Concent Red Cell Distribution Width 12.7 % Platelet Count 217 TH/MM3 Mean Platelet Volume 7.1 FL Neutrophils (%) (Auto) 76.1 % Lymphocytes (%) (Auto) 13.1 % Monocytes (%) (Auto) 7.1 % Eosinophils (%) (Auto) 3.4 % Basophils (%) (Auto) 0.3 % Neutrophils # (Auto) 8.4 TH/MM3 Lymphocytes # (Auto) 1.5 TH/MM3 Monocytes # (Auto) 0.8 TH/MM3 Eosinophils # (Auto) 0.4 TH/MM3 Basophils # (Auto) 0.0 TH/MM3 CBC Comment DIFF FINAL Differential Comment Sodium Level 143 MEQ/L Potassium Level 3.5 MEQ/L Chloride Level 106 MEQ/L Carbon Dioxide Level 27.4 MEQ/L Anion Gap 10 MEQ/L Blood Urea Nitrogen 26 MG/DL Creatinine 0.99 MG/DL Estimat Glomerular Filtration 74 ML/MIN Rate Random Glucose 128 MG/DL Lactic Acid Level 1.9 mmol/L Calcium Level 8.8 MG/DL Total Bilirubin 0.3 MG/DL Aspartate Amino Transf 19 U/L (AST/SGOT) Alanine Aminotransferase 24 U/L (ALT/SGPT) Alkaline Phosphatase 132 U/L Total Protein 7.2 GM/DL Albumin 3.7 GM/DL MDM Medical Decision Making Medical Screen Exam Complete: Yes Emergency Medical Condition: Yes Medical Record Reviewed: Yes Interpretation(s) The CBC shows a white count of 11,100 with a hemoglobin 11.8 and hematocrit of 34.9. The rest of the CBC is unremarkable. The group A strep antigen is negative for group A strep antigen. Differential Diagnosis Pneumonia, COPD with acute exacerbation, viral syndrome, viral pharyngitis, strep pharyngitis Narrative Course I discussed the patient with radiologist, Dr. Edwards, and there is some new area of pleural thickening as compared to a CT of the thorax on the left base. This possibly could be an effusion. The patient has been comfortable, not manifesting any shortness of breath and the blood work is normal except for a minimal elevation of the white count. Plan: Because of the patient's fever the patient will be treated with Zithromax. This may well be a viral syndrome. Diagnosis Primary Impression: COPD exacerbation Additional Impression: Pleural effusion Additional Instructions: The Zithromax is taken one tablet daily for 5 days. Follow-up with your primary care physician next week. Med/Other Pt SpecificInfo: Prescription(s) given Scripts Azithromycin (Zithromax)500 Mg [id number] Mg PO DAILY 4 Days Ref 0 Prov:Valentin Montero MD 6/25/17 Disposition: 01 DISCHARGE HOME Condition: Stable Valentin Montero MD May 03, 2017 02:32
[2017-05-03 03:00] LABS: AUTOMATED NEUTROPHIL # 8.4 TH/MM3 (1.8-7.7); BASOPHIL % 0.3 % (0.0-2.0); EOSINOPHIL # 0.4 TH/MM3 (0-0.4); EOSINOPHIL % 3.4 % (0.0-4.0); HEMATOCRIT 34.9 % (39.0-51.0); HEMO FLAGS DIFF FINAL; LYMPH % 13.1 % (9.0-44.0); LYMPHOCYTE # 1.5 TH/MM3 (1.0-4.8); MEAN CELL VOLUME 90.7 FL (80.0-100.0); MEAN CORPUSCULAR HEMOGLOBIN 30.6 PG (27.0-34.0); MEAN CORPUSCULAR HGB CONC 33.7 % (32.0-36.0); MONO % 7.1 % (0.0-8.0); NEUT % 76.1 % (16.0-70.0); PLATELET COUNT 217 TH/MM3 (150-450); RED BLOOD COUNT 3.85 MIL/MM3 (4.50-5.90); RED CELL DISTRIBUTION WIDTH 12.7 % (11.6-17.2); WHITE BLOOD COUNT 11.1 TH/MM3 (4.0-11.0)
[2017-05-03 03:20] VITALS: BP 118/76; PULSE 96; RESP 18; TEMP 98.4; O2SAT 96
[2017-05-03 03:20] LABS: CHLORIDE 106 MEQ/L (98-107); POTASSIUM 3.5 MEQ/L (3.5-5.1); SODIUM (NA) 143 MEQ/L (136-145)
[2017-05-03 03:24] LABS: ANION GAP 10 MEQ/L (5-15); BICARBONATE 27.4 MEQ/L (21.0-32.0); BLOOD UREA NITROGEN 26 MG/DL (7-18)
[2017-05-03 03:27] LABS: ALT (GPT) 24 U/L (12-78); AST (GOT) 19 U/L (15-37); GLOMERULAR FILTRATION RATE 74 ML/MIN (>89)
[2017-05-03 03:29] LABS: TOTAL BILIRUBIN ADULT 0.3 MG/DL (0.2-1.0)
[2017-05-03 03:30] LABS: ALKALINE PHOSPHATASE 132 U/L (45-117)
[2017-05-03 04:35] VITALS: BP 112/65; PULSE 88; RESP 17; O2SAT 96
[2017-05-03] MEDS ORDERED: AZITHROMYCIN 250 MG TAB PO ONE (04:45)
[2017-05-03] MEDS ORDERED: ZITH500T PO (04:45)
--- NOTE | 2017-05-03 11:54 | EKG ---
Date Performed: 05/03/2017 Time Performed: 02:00:17 PTAGE: 71 years EKG: SINUS TACHYCARDIA INDETERMINATE AXIS RIGHT BUNDLE BRANCH BLOCK Since previous tracing, no s ignificant change noted ABNORMAL ECG PREVIOUS TRACING : 01/27/2017 12.35 DOCTOR: Fracisco Cook Interpretating Date/Time 05/03/2017 11:53:42
--- NOTE | 2017-05-04 08:44 | RADRPT ---
EXAM DATE/TIME: 05/03/2017 02:31 This report includes an Addendum and supersedes previous reports for this exam. [facility] COMPARISON: No previous studies available for comparison. INDICATIONS : Shortness of breath. MEDICAL HISTORY : Chronic obstructive pulmonary disease. Diabetes. SURGICAL HISTORY : None. ENCOUNTER: Initial ACUITY: 1 day PAIN SCORE: 0/10 LOCATION: Bilateral chest FINDINGS: PA and lateral views of the chest demonstrates hyperinflation which can be seen with CO PD. No infiltrates are seen. Heart is normal in size. The mediastinal contours are unremarkable. T here are old right-sided rib fractures. Osseous structures are intact. CONCLUSION: Hyperinflation which can be seen with COPD. No acute cardiopulmonary disease an d no evidence for an infiltrate. Ceferino Edwards MD on May 03, 2017 at 3:06 Board Certified Radiologist. This report was verified electronically. ADDENDUM: There is some blunting of the left costophrenic angle and could be related to small pleural effusion. Ceferino Edwards MD on May 03, 2017 at 4:33 Board Certified Radiologist. This report was verified electronically.
== END 2017-05-03 05:03 | disposition home or self-care (01) ==
LOC: PHED 01:22
DX: J44.1 Chronic obstructive pulmonary disease with (acute) exacerbation (principal); J90 Pleural effusion, not elsewhere classified; I45.10 Unspecified right bundle-branch block; E78.00 Pure hypercholesterolemia, unspecified; E11.9 Type 2 diabetes mellitus without complications; I10 Essential (primary) hypertension; G47.30 Sleep apnea, unspecified; E07.9 Disorder of thyroid, unspecified
CPT/HCPCS: 71020; 80053; 83605; 85025; 87040; 87081; 87880; 93005